=== PATIENT | female | born 1960 | race Caucasian/White ===

== ENCOUNTER 2020-08-10 07:46 | Outpatient (CLI) | payer MEDICARE, SELFPAY ==
--- NOTE | ~2020-08-10 | XR_ITS ---
EXAMINATION: XR knee RT 2V DATE: 08/10/2020 08:37 INDICATION: Right knee pain. TECHNIQUE: 2 views of right knee were obtained. COMPARISON: Right tibia and fibula radiographs 07/12/2019 FINDINGS: Bone alignment is normal. No fracture. There is mild tricompartmental osteoarthritis. No kn ee joint effusion. IMPRESSION: 1. Mild right knee osteoarthritis. Reviewed, dictated and finalized at location A.
== END 2020-08-10 07:47 | disposition home or self-care (01) ==
PROVIDERS: PCP Physician Assistant; Visit Provider Pain Medicine Interventional Pain Medicine
DX: M25.561 Pain in right knee (principal); M54.16 Radiculopathy, lumbar region; M17.11 Unilateral primary osteoarthritis, right knee
CPT/HCPCS: 73560

== ENCOUNTER 2020-11-23 14:45 | Outpatient (CLI) | payer MEDICARE, SELFPAY ==
--- NOTE | ~2020-11-23 | XR_ITS ---
EXAMINATION: XR shoulder LT min 2V DATE: 11/23/2020 15:34 INDICATION: Left shoulder pain. TECHNIQUE: 4 views of left shoulder were obtained. COMPARISON: None. FINDINGS: Bone alignment is normal. No fracture. There is severe osteoarthritis of the acromioclavicu lar joint and moderate osteoarthritis of glenohumeral joint. There is mild calcific tendinitis of the rotator cuff. IMPRESSION: 1. Polyarticular osteoarthritis. 2. Mild calcific tendinitis of the rotator cuff. Reviewed, dictated and finalized at location A. 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
--- NOTE | ~2020-11-23 | XR_ITS ---
XR lumbar spine 2-3V DATE: 11/23/2020 15:34 INDICATION: Back pain, radiculopathy TECHNIQUE: AP, lateral, coned lateral lumbosacral views COMPARISON: 03/10/2007 lumbar spine FINDINGS: There is diffuse osteopenia. Prominent bridging osteophytes of the lumbar spine are noted. Lumbar and lumbosacral interspaces are mildly to moderately narrowed at L1 to and L4-5 primarily. Minimal anterolisthesis at L4-5 due to degenerative change at the apophyseal joints. No fracture or bone destruction is evident. The lumbar pedicles are intact. The sacroiliac joints appear normal. Left common iliac artery stent. There is a prominent amount of fecal material within the colon. IMPRESSION: Osteopenia Degenerative changes Left common iliac artery stent Reviewed, dictated and finalized at location A. OR LEAD DEVELOPER
--- NOTE | ~2020-11-23 | XR_ITS ---
EXAMINATION: XR shoulder RT min 2V DATE: 11/23/2020 15:34 INDICATION: Right shoulder pain. TECHNIQUE: 4 views of right shoulder were obtained. COMPARISON: None. FINDINGS: Bone alignment is normal. No fracture. There is severe osteoarthritis of glenohumeral joint and acromioclavicular joint. There is calcific tendinitis of the rotator cuff. There are old healed right rib fractures. IMPRESSION: 1. Polyarticular osteoarthritis. 2. Calcific tendinitis of the rotator cuff. Reviewed, dictated and finalized at location A. N TEACHER
== END 2020-11-23 14:46 | disposition home or self-care (01) ==
PROVIDERS: PCP Physician Assistant; Visit Provider Pain Medicine Interventional Pain Medicine
DX: M25.519 Pain in unspecified shoulder (principal); M54.16 Radiculopathy, lumbar region; M85.88 Other specified disorders of bone density and structure, other site; Z95.5 Presence of coronary angioplasty implant and graft; M19.012 Primary osteoarthritis, left shoulder; M65.812 Other synovitis and tenosynovitis, left shoulder; M65.811 Other synovitis and tenosynovitis, right shoulder
CPT/HCPCS: 72100; 73030

== ENCOUNTER 2020-12-19 11:39 | Emergency (ER) | payer MEDICARE, SELFPAY ==
--- NOTE | 2020-12-19 11:43 | ED.GENADULT ---
HPI - General Adult General Chief complaint: Wound/Laceration Stated complaint: infected gland Time Seen by Provider: 12/19/20 11:43 Source: patient Mode of arrival: ambulatory Limitations: no limitations History of Present Illness HPI narrative: 60-year-old female patient presents to the [facility] with complaints of left-sided facial swelling for the past 2 weeks. Patient states she did contact her doctor, Dr. Lynch on December 06 that was put on Cipro at that time. Patient states that the swelling was not as bad. Patient states the swelling has gotten worse over the last couple of weeks and did contact his office again after her 10 days of Cipro was up and they extended the Cipro. Patient states that she still spiking fevers as high as 100 and that the swelling is now gotten the size of the range. Patient states it is slightly painful to the touch and hurts when she tries to open her mouth. Denies any dental issues. Denies any pain to the ears. Denies any trouble swallowing or airway issues. Related Data Home Medications Medication Instructions Recorded Confirmed acetaminophen-codeine tablet 12/19/20 12/19/20 clopidogrel 75 mg PO DAILY 12/19/20 12/19/20 diclofenac sodium TOPICAL 12/19/20 gabapentin 12/19/20 oxybutynin chloride 5 mg PO DAILY 12/19/20 12/19/20 tramadol mg 12/19/20 Allergies Allergy/AdvReac Type Severity Reaction Status Date / Time Penicillins Allergy Unknown Verified 07/12/19 13:47 Review of Systems Review of Systems: Narrative: CONSTITUTIONAL: Denies fever, chills, or sweats. EYES: Denies visual changes, redness, or discharge. ENT: Denies rhinorrhea, congestion, sore throat, or otalgia. Positive left-sided facial swelling x2 weeks CARDIOVASCULAR: Denies chest pain, palpitations, or edema. RESPIRATORY: Denies cough or dyspnea. GASTROINTESTINAL: Denies abdominal pain, nausea, vomiting, or diarrhea. GENITOURINARY: Denies dysuria or hematuria. SKIN: Denies rash or itching. MUSCULOSKELETAL: Denies back pain, joint pain, or myalgia. NEUROLOGIC: Denies headache, numbness, or weakness. PSYCHIATRIC: Denies anxiety or depression. [facility] Past Medical History Medical History (Updated 12/19/20 @ 12:23 by CHRISTINA Núñez) Above knee amputation of left lower extremity Stent left leg Depression Diabetes Enlarged thyroid GERD (gastroesophageal reflux disease) History of left below knee amputation Hypercholesterolemia Hypertension IBS (irritable bowel syndrome) Iron deficiency anemia Opioid use Osteomyelitis Peripheral neuropathy Peripheral vascular disease Seasonal allergies Urinary tract infection Surgical History Surgical History (Updated 12/19/20 @ 11:47 by CHRISTINA Núñez) H/O vascular surgery Stent placed in left leg to increase circulation. Left AKA Hx of cholecystectomy Family History Family History (Updated 12/19/20 @ 11:48 by CHRISTINA Núñez) Other Cerebrovascular accident Diabetes mellitus Heart disease Hypertension Social History Social History (Updated 12/19/20 @ 11:47 by CHRISTINA Núñez) Smoking packs per day: 1 Smoking cigarettes per day: 20.0 Years smoked: 13 Smoking pack-years: 13.00 Smoking status: Former smoker Tobacco type: cigarettes Gender identity (if verbalized by the patient): Female Comments At the time of my signature I agree with nursing past medical history, surgical, social, and family history. There is no relevant family history pertinent to the presenting complaint. Exam Narrative: Exam Narrative: GENERAL: Well-appearing, well-nourished, and in no acute distress. HEAD: Normocephalic, atraumatic. EYES: PERRLA and EOMI. ENT: Nares clear, no rhinorrhea or epistaxis. Mucous membranes moist. Bilateral TMs are clear with no erythema or foreign bodies to the canal. Posterior pharynx slight erythema no tonsil enlargement no exudates or lesions present. Patient does have a significant amount of swelling
[2020-12-19 12:05] VITALS: BP 136/65; PULSE 81; RESP 20; TEMP 36.9; O2SAT 96
[2020-12-19 12:08] VITALS: BP 136/65; PULSE 81; RESP 20; TEMP 36.9; O2SAT 96
== END 2020-12-19 12:28 | disposition short-term general hospital (02) ==
PROVIDERS: Emergency Provider Nurse Practitioner Family; PCP Physician Assistant
DX: R22.0 Localized swelling, mass and lump, head (principal); Z87.891 Personal history of nicotine dependence; K21.9 Gastro-esophageal reflux disease without esophagitis; E78.00 Pure hypercholesterolemia, unspecified; I10 Essential (primary) hypertension; M86.9 Osteomyelitis, unspecified; E11.42 Type 2 diabetes mellitus with diabetic polyneuropathy; E11.51 Type 2 diabetes mellitus with diabetic peripheral angiopathy without gangrene; Z89.612 Acquired absence of left leg above knee; Z79.4 Long term (current) use of insulin
CPT/HCPCS: 99213; G0463

== ENCOUNTER 2020-12-19 12:39 | Inpatient (IN) | payer MEDICARE, SELFPAY ==
--- NOTE | ~2020-12-19 | CT_ITS ---
EXAMINATION: CT facial bones w con EXAM DATE: 12/19/2020 14:18 INDICATION: Facial mass, left facial swelling for 2 weeks. TECHNIQUE: Spiral CT of the facial bones was acquired in the axial plane following intravenous inject ion of 75 mL Omnipaque 350. Coronal reformatted images were also reviewed. The dose-length product (DLP) for this examination was 773.43 mGy-cm. The exposure was tailored according to patient size, a nd iterative reconstruction (ASIR) was used as additional dose reduction technique. There is no prio r study for comparison. FINDINGS: In the left parotid superficial lobe posteriorly there is complex multicystic mass measurin g 3.1 x 2.3 cm in greatest axial dimensions. Differential diagnosis includes cystic lymphadenopathy, from infection or malignancy, and primary parotid neoplasm. Given that there is extensive edema withi n the left parotid gland, could be suppurative lymphadenitis, parotiditis. No parotid calcifications. No jugular venous thrombosis. There is left internal jugular chain lymph node measuring 1.3 x 0.8 cm below the mandibular angle. Mi nimal edema within the left parapharyngeal fat. Prevertebral space is normal. There are tonsilliths. Bilateral cataract surgery. IMPRESSION: Left parotid complex cystic mass, and extensive parotid inflammation. Consider suppurati ve lymphadenitis, parotiditis. Malignant lymphadenopathy or primary parotid neoplasm also possible. Reviewed, dictated and finalized at location B. EDUCATOR IMPRESSION: Left parotid complex cystic mass, and extensive parotid inflammatio n. Consider suppurative lymphadenitis, parotiditis. Malignant lymphadenopathy or primary parotid neoplasm also possible.
--- NOTE | ~2020-12-19 | US_ITS ---
EXAMINATION: US venous doppler LE RT DATE: 12/21/2020 13:24 INDICATION: Right lower limb swelling TECHNIQUE: Grayscale ultrasound images without and with compression and Doppler ultrasound images of the right lower extremity veins were obtained. COMPARISON: None. FINDINGS: The visualized portions of right common femoral vein, profunda (deep) femoral vein, femoral vein, pop liteal vein, peroneal trunk, posterior tibial veins, gastrocnemius vein and greater saphenous vein ou tflow are patent. IMPRESSION: 1. No deep venous thrombosis in the right lower limb. Reviewed, dictated and finalized at location A. K OFFBEARER
[2020-12-19 12:44] VITALS: BP 139/90; PULSE 83; RESP 18; TEMP 36.9; O2SAT 96
--- NOTE | 2020-12-19 13:07 | ED.SKABFB ---
HPI - Skin/Abscess/Foreign Bdy General Chief complaint: Skin/Abscess/Foreign Body <Rick Joshua MD - Last Filed: 12/20/20 14:38> Stated complaint: left facial swelling sent from [facility] <Rick Joshua MD - Last Filed: 12/20/20 14:38> Time Seen by Provider: 12/19/20 13:07 <Rick Joshua MD - Last Filed: 12/20/20 14:38> History of Present Illness HPI narrative: 60 yo female w/ h/o DM, htn presents to the ED for facial swelling. She first noted pain in her left ear 2 weeks ago. She was placed on Cipro by her PCP. About 1 week ago she noted swelling to the left side of the face. The swelling has continued to get worse. No dental pain, fever, nausea, vomiting, muffled hearing. <Rick Joshua MD - Last Filed: 12/20/20 14:38> Related Data Home medications: Home Medications Medication Instructions Recorded Confirmed acetaminophen-codeine 300 tablet PO QID 12/19/20 12/19/20 carvedilol 12.5 mg PO BID 12/19/20 12/19/20 clopidogrel 75 mg PO DAILY 12/19/20 12/19/20 diclofenac sodium 1 ea TOPICAL DAILY PRN 12/19/20 12/19/20 docusate sodium 50 mg PO DAILY 12/19/20 12/19/20 gabapentin 600 mg PO TID 12/19/20 12/19/20 insulin lispro [Humalog Pen] 4 unit SUBCUT BIDWMEAL 12/19/20 12/19/20 losartan-hydrochlorothiazide 0.5 tablet PO DAILY 12/19/20 12/19/20 oxybutynin chloride 5 mg PO TID 12/19/20 12/19/20 pioglitazone 15 mg PO DAILY 12/19/20 12/19/20 tizanidine 4 mg PO HS PRN 12/19/20 12/19/20 <Rick Joshua MD - Last Filed: 12/20/20 14:38> Allergies/Adverse reactions: Allergies Allergy/AdvReac Type Severity Reaction Status Date / Time latex Allergy Rash Verified 12/20/20 06:48 <Rick Joshua MD - Last Filed: 12/20/20 14:38> Review of Systems Review of Systems: All systems reviewed & are unremarkable except as noted in HPI and below <Rick Joshua MD - Last Filed: 12/20/20 14:38> Constitutional: Constitutional: Denies chills, Denies fever(s) and Denies weakness <Rick Joshua MD - Last Filed: 12/20/20 14:38> Eyes: Eyes: Reports no additional eye complaints <Rick Joshua MD - Last Filed: 12/20/20 14:38> ENT: Denies dysphagia, Denies dizziness, Denies nasal congestion and Denies sore throat <Rick Joshua MD - Last Filed: 12/20/20 14:38> Cardiovascular: Cardiovascular: Denies chest pain <Rick Joshua MD - Last Filed: 12/20/20 14:38> Respiratory: Respiratory: Denies dyspnea <Rick Joshua MD - Last Filed: 12/20/20 14:38> Gastrointestinal: Gastrointestinal: Denies abdominal pain, Denies nausea and Denies vomiting <Rick Joshua MD - Last Filed: 12/20/20 14:38> Neurologic: Denies dizziness and Denies weakness <Rick Joshua MD - Last Filed: 12/20/20 14:38> [facility] Past Medical History Medical History: Medical History (Updated 12/20/20 @ 03:43 by Amy Montgomery PA-C) Chronic anemia Depression Gastroesophageal reflux disease History of cerebrovascular accident History of DVT of lower extremity Hyperlipidemia Hypertension Irritable bowel syndrome Opioid use Osteomyelitis Peripheral neuropathy Peripheral vascular disease Seasonal allergies Thrombocytopenia Type 2 diabetes mellitus Hemoglobin A1c was 7.0% on 12/19/2020. Urinary tract infection <Rick Joshua MD - Last Filed: 12/20/20 14:38> Surgical History Surgical History: Surgical History (Updated 12/20/20 @ 03:43 by Amy Montgomery PA-C) History of amputation Multiple left toe amputations leading to ultimate BKA. History of cholecystectomy History of left above knee amputation History of left below knee amputation (~06/2013) History of vascular surgery Left lower extremity stent. History of vein stripping <Rick Joshua MD - Last Filed: 12/20/20 14:38> Family History Family History: Family History Mother Cerebrovascular accident
[2020-12-19 14:02] LABS: Basophils Percent Auto 0.3 % (0.2-1.2); Eosinophils Absolute Auto 0.3 K/mm3 (0-0.3); Eosinophils Percent Auto 2.7 % (0-4.4); Hematocrit 35.8 % (37.0-47.0); Hemoglobin 11.9 g/dL (12.0-15.0); Immature Granulocyte Absolute 0.06 K/mm3 (0.00-0.031); Immature Granulocyte Percent A 0.6 % (0-0.5); Lymphocytes Absolute Auto 0.98 K/mm3 (0.9-3.2); Lymphocytes Percent Auto 9.2 % (18.3-44.2); Mean Corpuscular HGB Conc 33.2 g/dl (32-36); Mean Corpuscular Hemoglobin 29.2 pg (26-34); Mean Corpuscular Volume 87.7 fl (80-100); Mean Platelet Volume 9.8 fl (7.4-10.4); Monocytes Absolute Auto 1.2 K/mm3 (0.1-0.6); Monocytes Percent Auto 10.9 % (2.6-8.5); Neutrophils Absolute Auto 8.1 K/mm3 (1.3-6.7); Neutrophils Percent Auto 76.3 % (45.5-73.1); Platelet Count Result 95 k/mm3 (150-375); Red Blood Count 4.08 M/mm3 (4.2-5.4); Red Cell Distribution Width 13.3 % (11.5-14.5); White Blood Count 10.6 K/mm3 (4.5-10.0)
--- NOTE | 2020-12-19 14:09 | PC.NURSE ---
Pt. to CT
[2020-12-19 14:14] LABS: INR 1.1
[2020-12-19 14:15] LABS: Estimated CRCL calculation 115 ml/min; Estimated Glomerular Filt Rate > 60
[2020-12-19 14:15] LABS: Partial Thromboplastin Time 34.9 SECONDS (22.3-36.8)
[2020-12-19 14:16] LABS: Alanine Aminotransferase 17 U/L (4-35); Alkaline Phosphatase 94 U/L (38-126); Anion Gap 5 mmol/L (8-16); Aspartate Amino Transferase 22 U/L (14-36); Bilirubin,Total 0.9 mg/dL (0.2-1.3); Blood Urea Nitrogen 17 mg/dL (7-17); Calcium 9.1 mg/dL (8.4-10.2); Carbon Dioxide 29 mmol/L (22-30); Chloride 101 mmol/L (98-107); Estimated CRCL calculation 98 ml/min; Estimated Glomerular Filt Rate > 60; Glucose 178 mg/dL (65-105); Potassium 3.6 mmol/L (3.4-5.0); Sodium 135 mmol/L (137-145)
[2020-12-19] MEDS: CLINDAMYCIN 600 MG/NS 50 ML 600 MG/50 ML PIGGYBACK 100 MG IVPB (14:58)
[2020-12-19 15:35] VITALS: BP 135/70; PULSE 80; RESP 12; O2SAT 99
[2020-12-19] MEDS: MORPHINE SULFATE (*CRX) 2 MG/ML INJ IV PUSH (15:53)
[2020-12-19 17:17] VITALS: BP 131/70; PULSE 80; RESP 12; O2SAT 99
--- NOTE | 2020-12-19 17:48 | WPDCN ---
Assessment and Plan Assessment and plan (1) Swelling of left side of face: Code(s): R22.0 - Localized swelling, mass and lump, head Status: Acute Assessment and Plan: Delmy has left parotid cyst that may have become infected. The cyst appears to have pre-existed this infectious process. Over the last two weeks, rapid facial swelling that has not responded to PO antibiotics. Imaging showed significant facial cellulitis and parotitis in addition to the multiloculated fluid filled cyst. After consent was obtained, 1% lidocaine with 1:100k epinephrine was infiltrated into the skin overlying the cyst/abscess. Using an 18ga needle, the cyst was entered and contents aspirated - approximately 4mL of brown fluid as well as squamous debris-like material that may have been infected. This decompressed the cyst very nicely. Pt tolerated this without complication. Recommend admission to medicine given diabetes and other medical history for IV antibiotic therapy. It is not entirely clear that the parotid cyst was the underlying source for infection and may have been incidental in the setting of parotitis. However at this time I think we can avoid surgical I&D after the needle aspiration and see how she responds to antibiotic therapy. Will follow as consult and see tomorrow PM. Flip Virk M.D. HPI Data of Consult Date/Time: 12/19/20 17:48 Primary Care Provider: Murphy Lynch, PA Consult Narrative Narrative: Delmy Hull is a 60 year old female diabetic who came in with 2 weeks of progressive left facial swelling and otalgia. Had been on PO cipro for two rounds by her PCP before coming in today. ENT consulted after imaging showed parotitis with a complex multiloculated cyst vs. abscess. Review of Systems Review of Systems: All systems reviewed & are unremarkable except as noted in HPI and below PMFSH Past Medical History Medical History Above knee amputation of left lower extremity Stent left leg Depression Diabetes Enlarged thyroid GERD (gastroesophageal reflux disease) History of left below knee amputation Hypercholesterolemia Hypertension IBS (irritable bowel syndrome) Iron deficiency anemia Opioid use Osteomyelitis Peripheral neuropathy Peripheral vascular disease Seasonal allergies Urinary tract infection Surgical History Surgical History H/O vascular surgery Stent placed in left leg to increase circulation. Left AKA Hx of cholecystectomy Family History Family History Other Cerebrovascular accident Diabetes mellitus Heart disease Hypertension Social History Social History Smoking packs per day: 1 Smoking cigarettes per day: 20.0 Years smoked: 13 Smoking pack-years: 13.00 Smoking status: Former smoker Tobacco type: cigarettes Gender identity (if verbalized by the patient): Female Meds Home Medications and Allergies Home Medications Medication Instructions Recorded Confirmed Type acetaminophen-codeine 300 tablet PO DAILY 12/19/20 12/19/20 History carvedilol 12.5 mg PO BID 12/19/20 12/19/20 History clopidogrel 75 mg PO DAILY 12/19/20 12/19/20 History diclofenac sodium 1 ea TOPICAL DAILY 12/19/20 12/19/20 History gabapentin 600 mg PO TID 12/19/20 12/19/20 History insulin lispro [Humalog Pen] 4 unit SUBCUT BIDWMEAL 12/19/20 12/19/20 History losartan-hydrochlorothiazide 0.5 tablet PO DAILY 12/19/20 12/19/20 History oxybutynin chloride 5 mg PO DAILY 12/19/20 12/19/20 History pioglitazone 15 mg PO DAILY 12/19/20 12/19/20 History tizanidine 4 mg PO PRN PRN 12/19/20 12/19/20 History tramadol 50 mg PO HS 12/19/20 12/19/20 History Allergies Allergy/AdvReac Type Severity Reaction Status Date / Time Penicillins Allergy Unknown Rash Verified
[2020-12-19 18:37] VITALS: BP 139/77; PULSE 70; RESP 14; O2SAT 99
[2020-12-19 19:57] VITALS: BP 144/64; PULSE 88; RESP 19; TEMP 38.4; O2SAT 98
[2020-12-19 20:00] VITALS: BP 151/63; PULSE 89; RESP 16; TEMP 36.7; O2SAT 98; BMI 41.7
--- NOTE | 2020-12-19 20:18 | ADMGEN ---
This patient, Delmy Hull, was admitted to 2 Medical Room 240-01. Patient/family oriented to hospital policies and general routines including ID bracelet, bed and alarms, visiting hours, pain management, procedures, bathroom and other care routines, personal items, smoking policy, room service/diet, and visiting hours. Information on how to activate the Rapid Response Team has been discussed. Patient/Family are encouraged to report perceived risks to care and to ask questions if they do not understand what they are told or what they should do.
[2020-12-19 21:20] LABS: Glucose Point of Care 259 (65-105)
--- NOTE | 2020-12-19 22:30 | PM.IMHP ---
H&P: HPI History of Present Illness Date/Time: 12/19/20 22:30 Chief Complaint: Left-sided facial swelling. Narrative: This is a 62-year-old female with type 2 diabetes mellitus, hypertension, and peripheral vascular disease who presented to the emergency department earlier today from urgent care for evaluation of left-sided facial swelling. A couple of weeks ago she thought she was developing a sinus infection after she began having left ear discomfort with fever and some congestion. She was prescribed ciprofloxacin however that did not help her ear pain and in fact she began developing swelling in the preauricular region while taking that antibiotic. Unfortunately the area has continued to swell with pretty significant pain and she was seen at a local urgent care and then directed to the emergency department for evaluation. CT demonstrated a parotid cyst with inflammation of the parotid, and Dr. Virk (ENT) did drain the cyst at bedside and he recommends admission for IV antibiotics for at least 48 hours. At the time my evaluation she feels a bit better after this cyst has been drained. She has no specific complaints at this time and specifically denies headache, rhinorrhea, odynophagia, cough, shortness of breath, nausea, vomiting, diarrhea, and dysuria. No known history of MRSA. Review of Systems Review of Systems: Narrative: Twelve systems were reviewed with pertinent positives and negatives as per HPI. No sick contacts or exposure to COVID-19. Over the last week or so her glucose has been trending upwards, ranging between 202 30 which is unusual for her. No blurry vision, polydipsia, or polyuria. Patient has had several left-sided toe amputations followed by a BKA and subsequent left AKA due to osteomyelitis. She never had success with a prostatic. Except as documented, all other systems were reviewed and are negative. [facility] Past Medical History Medical History (Updated 12/20/20 @ 03:43 by Amy Montgomery PA-C) Chronic anemia Depression Gastroesophageal reflux disease History of cerebrovascular accident History of DVT of lower extremity Hyperlipidemia Hypertension Irritable bowel syndrome Opioid use Osteomyelitis Peripheral neuropathy Peripheral vascular disease Seasonal allergies Thrombocytopenia Type 2 diabetes mellitus Hemoglobin A1c was 7.0% on 12/19/2020. 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 History of cholecystectomy History of left above knee amputation History of left below knee amputation (~06/2013) History of vascular surgery Left lower extremity stent. History of vein stripping Family History Family History Mother Cerebrovascular accident Diabetes mellitus Hypertension Father Diabetes mellitus Heart disease Hypertension Social History Social History (Updated 12/20/20 @ 03:44 by Amy Montgomery PA-C) Social History: Surrogate decision maker: Rina Parrish, daughter. Code status: Full code. Smoking packs per day: 1 Smoking cigarettes per day: 20.0 Years smoked: 30 Smoking pack-years: 30.00 Smoking status: Former smoker Tobacco type: cigarettes Alcohol intake: never Substance use: never Additional living arrangements comments: The patient lives in [place] with her . Additional occupation/education comments: Disabled. Gender identity (if verbalized by the patient): Female Spiritual care concerns: No Meds Home Medications and Allergies Home Medications Medication Instructions Recorded Confirmed Type acetaminophen-codeine 300 tablet PO QID 12/19/20 12/19/20 History carvedilol 12.5 mg PO BID 12/19/20 12/19/20 History clopidogrel 75 mg PO DAILY 12/19/20 12/19/20 History diclofenac sodium 1 ea TOPICAL DAILY PRN 12/19/2012/19
[2020-12-19] MEDS: SODIUM CHLORIDE 0.9% IV 1,000 ML 125 ML IV CONT (22:49)
[2020-12-20] VITALS (10 sets, daily range): BP systolic 119–139; BP diastolic 53–83; PULSE 77–94; RESP 14–20; TEMP 36.1–36.9; O2SAT 94–99
[2020-12-20] MEDS: HYDROcodone/acetaminophen (*CRX) 5-325 MG TABLET 1 TAB PO ×2 (00:23→20:36)
[2020-12-20 06:04] LABS: Hematocrit 33.5 % (37.0-47.0); Hemoglobin 10.9 g/dL (12.0-15.0); Mean Corpuscular HGB Conc 32.5 g/dl (32-36); Mean Corpuscular Hemoglobin 28.3 pg (26-34); Mean Platelet Volume 9.5 fl (7.4-10.4); Platelet Count Result 105 k/mm3 (150-375); Red Blood Count 3.85 M/mm3 (4.2-5.4); Red Cell Distribution Width 13.2 % (11.5-14.5); White Blood Count 8.6 K/mm3 (4.5-10.0)
[2020-12-20 06:25] LABS: Anion Gap 4 mmol/L (8-16); Blood Urea Nitrogen 17 mg/dL (7-17); Calcium 8.3 mg/dL (8.4-10.2); Carbon Dioxide 28 mmol/L (22-30); Chloride 103 mmol/L (98-107); Estimated CRCL calculation 92 ml/min; Estimated Glomerular Filt Rate > 60; Glucose 170 mg/dL (65-105); Magnesium 1.5 mg/dL (1.6-2.3); Potassium 3.7 mmol/L (3.4-5.0); Sodium 135 mmol/L (137-145)
[2020-12-20 07:45] LABS: Glucose Point of Care 179 (65-105)
[2020-12-20] MEDS: MAGNESIUM SULF 1 GM/D5W 100 ML 1 GM/100 ML BAG IVPB (08:42)
[2020-12-20] MEDS: OXYBUTYNIN CHLORIDE 5 MG TABLET PO ×3 (09:16→16:44)
[2020-12-20] MEDS: GABAPENTIN 300 MG CAPSULE 600 MG PO ×3 (09:17→16:44)
[2020-12-20] MEDS: hydroCHLOROthiazide 6.25 MG TABLET PO (09:17)
[2020-12-20] MEDS: carvediloL 12.5 MG TABLET PO ×2 (09:18→20:37)
[2020-12-20] MEDS: LOSARTAN POTASSIUM 25 MG TABLET PO (09:18)
[2020-12-20] MEDS: DOCUSATE SODIUM LIQ 100 MG/10 ML UDC 50 MG PO (09:19)
[2020-12-20 11:24] LABS: Glucose Point of Care 282 (65-105)
[2020-12-20] MEDS: INSULIN ASPART (*BKC) 100 UNITS/ML SUB-Q ×2 (11:32→16:49)
--- NOTE | 2020-12-20 13:24 | PC.NURSE ---
On 12/20/20, the student, [ Arcelia Britt], provided care and completed [facility] documentation on this patient. I have reviewed the student's documentation and agree with the findings.
--- NOTE | 2020-12-20 13:26 | PC.NURSE ---
On 12/20/20, the student, [Ishaan Esposito ], provided care and completed [facility] documentation on this patient. I have reviewed the student's documentation and agree with the findings.
--- NOTE | 2020-12-20 13:41 | PM.IMPN ---
Progress Note: A&P Assessment and Plan (1) Parotitis: Code(s): K11.20 - Sialoadenitis, unspecified Status: Acute Assessment and Plan: The patient presented with progressive left-sided facial swelling x2 weeks. She was on 15 days of ciprofloxacin outpatient without improvement. CT face demonstrated left parotid complex cystic mass and extensive parotid inflammation. ENT (Dr. Virk) was consulted from the emergency department and performed incision and drainage. 4cc of brown fluid was aspirated and sent for culture. WBC has normalized. T max 101.1F yesterday evening and she has been afebrile today. Dr. Virk, ENT, is following. Input is greatly appreciated. Await final culture results. Preliminary culture shows white blood cells and no organisms at this time. Continue IV vancomycin and primaxin Encourage supportive care with stimulation of salivary flow with warm compress, sialagogues including lemon drop, IV fluids, and salivary gland massage (2) Cyst of left parotid gland: Code(s): K11.6 - Mucocele of salivary gland Status: Acute Assessment and Plan: As above. Uclear if this was the source of infection or incidental in the setting of parotitis. Management per Dr. Virk. (3) Thrombocytopenia: Code(s): D69.6 - Thrombocytopenia, unspecified Status: Chronic Assessment and Plan: Chronic. She has no evidence of bleeding. Continue to monitor for any bleeding. Monitor CBC daily. (4) Hypertension: Code(s): I10 - Essential (primary) hypertension Status: Chronic Assessment and Plan: Blood pressures are well-controlled. Most recent BP is 138/57. Continue carvedilol and losartan-hydrochlorothiazide Continue to monitor and adjust treatment as necessary (5) Type 2 diabetes mellitus: Code(s): E11.9 - Type 2 diabetes mellitus without complications Status: Chronic Assessment and Plan: Hemoglobin A1c is 7.0 on 12/19. Blood sugars are a bit elevated above target. Hold pioglitazone while inpatient Continue sliding scale insulin, hypoglycemia protocol, and ACHS glucose monitoring Continue 4 units BID with meals Add lantus 5 units qHS (6) Chronic anemia: Code(s): D64.9 - Anemia, unspecified Status: Chronic Assessment and Plan: Hb was a bit decreased from baseline on labs at admission. She does have a hx of chronic anemia and this is likely secondary to anemia of chronic disease. Check iron studies, vitamin B12, and folate Continue to monitor with CBC daily and transfuse as needed to maintain Hb >7 Subjective Date/time seen: 12/20/20 13:41 Mrs. Hull is a 60 y.o. female with PMH significant for hypertension, hyperlipidemia, type 2 diabetes mellitus, and peripheral vascular disease s/p left AKA who is seen in follow-up for left-sided parotitis. She is doing better today. She still complains of left sided swelling and and pain but this is a bit better today. She notes significant improvement in the pain/pressure following drainage by Dr. Virk. She is not having any fever or chills. Her appetite is good and she has no nausea, vomiting, or abdominal pain. She reports no ear pain or pressure and no dental pain. She has not tried lemon drops and is reluctant to but I did encourage this. She notes that she does feel a bit tired. Bowels are regular. She has no voiding concerns. Review of Systems Review of Systems: All systems reviewed & are unremarkable except as noted in HPI and below Exam Narrative: Exam Narrative: General: Very pleasant, well-developed, and morbidly obese 60 y.o. female who is sitting in the chair at the bedside watching TV in no acute distress. Head: Normocephalic and atraumatic. Face: Left parotid swelling and tenderness with inflammation and injection of overlying skin. Eyes: Sclera anicteric. Conjunctivae without injection or exudate. EOMI. Ears: Bilat
[2020-12-20 16:41] LABS: Glucose Point of Care 147 (65-105)
[2020-12-20] MEDS: SODIUM CHLORIDE 0.9% IV 1,000 ML 75 ML IV CONT (16:44)
--- NOTE | 2020-12-20 17:29 | WPDPN ---
Progress Note: A&P Assessment and Plan (1) Parotitis: Code(s): K11.20 - Sialoadenitis, unspecified Status: Acute Assessment and Plan: Delmy had a parotid cyst drained with me in the ED last night. No growth of fluid so far. Significant parotitis, no drainable abscess. Continuing to improve on IV antibiotics. Recommend another 24h of inpatient care and antibiotic management. If continuing to respond clinically, she may transition to PO antibiotics and discharge Thursday or Thursday per hospitalist team. Also agree with sialogogues, warm compresses and increased hydration. Please call if clinically worsens. Plan on outpatient follow up with me to discuss parotid cyst. Review of Systems Review of Systems: All systems reviewed & are unremarkable except as noted in HPI and below Exam Narrative: Exam Narrative: Decompressed left parotid cyst with less fullness and tension. Still has significant parotid inflammation consistent with parotitis. Objective Data Vital Signs Vital Signs: Vital Signs - 24 hr 12/19/20 18:37 12/19/20 19:57 12/19/20 20:00 Temperature 38.4 C H 36.7 C Pulse Rate 70 88 89 Respiratory Rate 14 19 16 Blood Pressure 139/77 144/64 H 151/63 H Pulse Oximetry 99 98 98 12/20/20 00:00 12/20/20 04:00 12/20/20 08:16 Temperature 36.2 C L 36.9 C 36.1 C L Pulse Rate 88 88 85 Respiratory Rate 16 16 14 Blood Pressure 133/54 L 123/53 L 138/57 L Pulse Oximetry 95 97 98 12/20/20 08:40 12/20/20 08:46 12/20/20 09:18 Temperature Pulse Rate 85 Respiratory Rate Blood Pressure Pulse Oximetry 94 94 12/20/20 12:57 Temperature 36.9 C Pulse Rate 77 Respiratory Rate 16 Blood Pressure 138/57 L Pulse Oximetry 99 Intake/Output Intake/Output: Intake & Output 12/17/20 12/18/20 12/19/20 12/20/20 23:59 23:59 23:59 23:59 Intake Total 550 3160 Output Total 500 Balance 550 2660 Meds/Results Medications: Active Medications Generic Name Dose Route Start Last Admin Trade Name Freq PRN Reason Stop Dose Admin Hydrocodone Bitart/Acetaminophen 1 tab 12/19/20 23:16 12/20/20 00:23 Hydrocodone/Acetaminophen (*Crx) 5-325 Mg Tablet PO 1 tab Q6H PRN Administration Pain Rated 4-6 Carvedilol 12.5 mg 12/20/20 09:00 12/20/20 09:18 Carvedilol 12.5 Mg Tablet PO 12.5 mg Q12HR ARMIN Administration Dextrose 12.5 gm 12/19/20 21:43 Dextrose 50% 25 Gm/50 Ml Syringe IV PUSH PRN PRN Hypoglycemia Protocol Docusate Sodium 50 mg 12/20/20 09:00 12/20/20 09:19 Docusate Sodium Liq 100 Mg/10 Ml Udc PO 01/19/21 09:01 50 mg DAILY ARMIN Administration Gabapentin 600 mg 12/20/20 09:00 12/20/20 16:44 Gabapentin 300 Mg Capsule PO 600 mg TID ARMIN Administration Glucagon 1 mg 12/19/20 21:43 Glucagon For Inj 1 Mg Vial IM PRN PRN Hypoglycemia Protocol Glucose 15 gm 12/19/20 21:43 Glucose Oral Gel 15 Gm Of Glucse In 37.5 Gm Tube PO PRN PRN Hypoglycemia Protocol Hydrochlorothiazide 6.25 mg 12/20/20 09:00 12/20/20 09:17 Hydrochlorothiazide 6.25 Mg Tablet PO 6.25 mg DAILY ARMIN Administration Vancomycin HCl 1,500 mg in 500 mls @ 333.333 mls/hr 12/20/20 07:00 12/20/20 14:25 Vancomycin 1,500 Mg/D5w 500 Ml IVPB Infused Q12H ARMIN Infusion Dextrose 1,000 mls @ 100 mls/hr 12/19/20 21:43 Dextrose 5% 1,000 Ml IVPB PRN PRN Hypoglycemia Protocol Imipenem/Cilastatin Sodium 500 mg in 100 mls @ 300 mls/hr 12/20/20 00:00 12/20/20 17:20 Primaxin 500 Mg/D5w 100 Ml IVPB 300 mls/hr Q6H ARMIN Administration Sodium Chloride 1,000 mls @ 75 mls/hr 12/20/20 15:35 12/20/20 16:44 Normal Saline Iv IV CONT 75 mls/hr .[id number] ARMIN Administration Insulin Aspart 2 - 5 units 12/20/20 08:00 12/20/20 16:43 Insulin Aspart (*Bkc) 100 Units/Ml SUB-Q Not Given TIDWM ARMIN Protocol Insulin Aspart 4 units 12/20/20 17:00 12/20/20 16:49 Insulin Aspart (*B
[2020-12-20] MEDS: INSULIN GLARGINE (*BKC) 100 UNITS/ML SUB-Q (20:38)
[2020-12-20 22:41] LABS: Glucose Point of Care 180 (65-105)
[2020-12-21] VITALS (9 sets, daily range): BP systolic 118–131; BP diastolic 54–70; PULSE 78–89; RESP 14–20; TEMP 36.6–37; O2SAT 96–98
[2020-12-21] MEDS: SODIUM CHLORIDE 0.9% IV 1,000 ML 75 ML IV CONT (06:03)
[2020-12-21 06:10] LABS: Basophils Absolute Auto 0.1 K/mm3 (0.0-0.1); Basophils Percent Auto 0.8 % (0.2-1.2); Eosinophils Absolute Auto 0.5 K/mm3 (0-0.3); Hematocrit 32.9 % (37.0-47.0); Hemoglobin 10.7 g/dL (12.0-15.0); Immature Granulocyte Absolute 0.08 K/mm3 (0.00-0.031); Immature Granulocyte Percent A 1.2 % (0-0.5); Lymphocytes Absolute Auto 1.13 K/mm3 (0.9-3.2); Lymphocytes Percent Auto 17.1 % (18.3-44.2); Mean Corpuscular HGB Conc 32.5 g/dl (32-36); Mean Corpuscular Hemoglobin 28.8 pg (26-34); Mean Corpuscular Volume 88.4 fl (80-100); Mean Platelet Volume 9.5 fl (7.4-10.4); Monocytes Absolute Auto 0.9 K/mm3 (0.1-0.6); Monocytes Percent Auto 12.9 % (2.6-8.5); Platelet Count Result 102 k/mm3 (150-375); Red Blood Count 3.72 M/mm3 (4.2-5.4); Red Cell Distribution Width 13.2 % (11.5-14.5); White Blood Count 6.6 K/mm3 (4.5-10.0)
[2020-12-21 06:33] LABS: Anion Gap 5 mmol/L (8-16); Blood Urea Nitrogen 21 mg/dL (7-17); CRP 8.9 mg/dL (<1.0); Calcium 8.2 mg/dL (8.4-10.2); Carbon Dioxide 28 mmol/L (22-30); Chloride 99 mmol/L (98-107); Estimated CRCL calculation 92 ml/min; Estimated Glomerular Filt Rate > 60; Glucose 184 mg/dL (65-105); Magnesium 1.7 mg/dL (1.6-2.3); Potassium 3.7 mmol/L (3.4-5.0); Sodium 132 mmol/L (137-145)
[2020-12-21 07:41] LABS: Glucose Point of Care 197 (65-105)
[2020-12-21] MEDS: carvediloL 12.5 MG TABLET PO ×2 (08:03→21:06)
[2020-12-21] MEDS: DOCUSATE SODIUM LIQ 100 MG/10 ML UDC 50 MG PO (08:03)
[2020-12-21] MEDS: GABAPENTIN 300 MG CAPSULE 600 MG PO ×3 (08:04→17:01)
[2020-12-21] MEDS: hydroCHLOROthiazide 6.25 MG TABLET PO (08:04)
[2020-12-21] MEDS: OXYBUTYNIN CHLORIDE 5 MG TABLET PO ×3 (08:04→17:01)
[2020-12-21] MEDS: LOSARTAN POTASSIUM 25 MG TABLET PO (08:04)
[2020-12-21] MEDS: INSULIN ASPART (*BKC) 100 UNITS/ML SUB-Q ×4 (08:07→17:01)
--- NOTE | 2020-12-21 10:46 | PM.IMPN ---
Progress Note: A&P Assessment and Plan (1) Parotitis: Code(s): K11.20 - Sialoadenitis, unspecified Status: Acute Assessment and Plan: The patient presented with progressive left-sided facial swelling x2 weeks. She was on 15 days of ciprofloxacin outpatient without improvement. CT face demonstrated left parotid complex cystic mass and extensive parotid inflammation. ENT (Dr. Virk) was consulted from the emergency department and performed incision and drainage. 4cc of brown fluid was aspirated and sent for culture. WBC has normalized. T max 101.1F yesterday evening and she has been afebrile today. Dr. Virk, ENT, is following. Input is greatly appreciated. She will need to follow-up with Dr. Virk outpatient in 1 week for follow-up. Await final culture results. Preliminary culture from I&D shows white blood cells and growth of skin francis. Blood cultures demonstrate NGTD. Continue IV vancomycin and primaxin (initiated 12/20/20) Encourage supportive care with stimulation of salivary flow with warm compress, sialagogues including lemon drop, IV fluids, and salivary gland massage Anticipate transition to oral antibiotics and possible discharge tomorrow (2) Cyst of left parotid gland: Code(s): K11.6 - Mucocele of salivary gland Status: Acute Assessment and Plan: As above. Uclear if this was the source of infection or incidental in the setting of parotitis. Management per Dr. Virk. She will follow-up with Dr. Virk outpatient to discuss the cyst. (3) Thrombocytopenia: Code(s): D69.6 - Thrombocytopenia, unspecified Status: Chronic Assessment and Plan: Chronic. She has no evidence of bleeding. Continue to monitor for any bleeding. Monitor CBC daily. (4) Hypertension: Code(s): I10 - Essential (primary) hypertension Status: Chronic Assessment and Plan: Blood pressures are well-controlled. Most recent BP is 131/54. Continue carvedilol and losartan-hydrochlorothiazide Continue to monitor and adjust treatment as necessary (5) Type 2 diabetes mellitus: Code(s): E11.9 - Type 2 diabetes mellitus without complications Status: Chronic Assessment and Plan: Hemoglobin A1c is 7.0 on 12/19. Blood sugars were a bit elevated above target but have improved. She is being switched to consistent carb diet as well. Hold pioglitazone while inpatient Continue sliding scale insulin, hypoglycemia protocol, and ACHS glucose monitoring Continue 4 units BID with meals Continue lantus 5 units qHS (6) Chronic anemia: Code(s): D64.9 - Anemia, unspecified Status: Chronic Assessment and Plan: Hb was a bit decreased from baseline on labs at admission. She does have a hx of chronic anemia and this is likely secondary to anemia of chronic disease. Check iron studies, vitamin B12, and folate Continue to monitor with CBC daily and transfuse as needed to maintain Hb >7 (7) Right leg swelling: Code(s): M79.89 - Other specified soft tissue disorders Status: Acute Assessment and Plan: Order venous doppler US to r/o DVT. Likely dependent due to venous insufficiency as she normally wears a compression stocking at home. Add PRUDENCIO hose and encourage leg elevation. Subjective Date/time seen: 12/21/20 10:46 Mrs. Hull is a 60 y.o. female with PMH significant for hypertension, hyperlipidemia, type 2 diabetes mellitus, and peripheral vascular disease s/p left AKA who is seen in follow-up for left-sided parotitis. She is doing well overall. She still has left sided facial pain, pressure/fullness, and swelling but does think it is a bit better. She has no ear pain or tooth pain. She is eating okay but does not like heart healthy diet and will be switched to consistent carb diet. She generally wears a compression stocking at home on her RLE and feels her RLE is a bit swollen but she has no calf t
[2020-12-21 11:37] LABS: Glucose Point of Care 218 (65-105)
--- NOTE | 2020-12-21 15:56 | PC.NURSE ---
On 12/21/20, the student, [ Boris Roche], provided care and [facility]. I have reviewed the student's documentation and agree with the findings.
[2020-12-21 16:41] LABS: Glucose Point of Care 182 (65-105)
[2020-12-21] MEDS: HYDROcodone/acetaminophen (*CRX) 5-325 MG TABLET 1 TAB PO (21:05)
[2020-12-21] MEDS: INSULIN GLARGINE (*BKC) 100 UNITS/ML SUB-Q (21:06)
[2020-12-21 21:16] LABS: Glucose Point of Care 256 (65-105)
[2020-12-22] VITALS: BP 105/48; PULSE 79; RESP 20; TEMP 36.6; O2SAT 98
[2020-12-22 04:00] VITALS: BP 108/47; PULSE 85; RESP 20; TEMP 36.4; O2SAT 98
[2020-12-22 05:29] LABS: Basophils Percent Auto 0.7 % (0.2-1.2); Eosinophils Absolute Auto 0.4 K/mm3 (0-0.3); Eosinophils Percent Auto 6.8 % (0-4.4); Hemoglobin 11.5 g/dL (12.0-15.0); Immature Granulocyte Percent A 1.7 % (0-0.5); Lymphocytes Absolute Auto 1.09 K/mm3 (0.9-3.2); Mean Corpuscular HGB Conc 32.9 g/dl (32-36); Mean Corpuscular Hemoglobin 29.2 pg (26-34); Mean Corpuscular Volume 88.8 fl (80-100); Mean Platelet Volume 9.4 fl (7.4-10.4); Monocytes Absolute Auto 0.6 K/mm3 (0.1-0.6); Monocytes Percent Auto 10.1 % (2.6-8.5); Neutrophils Absolute Auto 3.6 K/mm3 (1.3-6.7); Neutrophils Percent Auto 61.7 % (45.5-73.1); Platelet Count Result 110 k/mm3 (150-375); Red Blood Count 3.94 M/mm3 (4.2-5.4); Red Cell Distribution Width 13.1 % (11.5-14.5); White Blood Count 5.8 K/mm3 (4.5-10.0)
[2020-12-22 05:43] LABS: Anion Gap 5 mmol/L (8-16); Blood Urea Nitrogen 19 mg/dL (7-17); CRP 6.4 mg/dL (<1.0); Calcium 8.7 mg/dL (8.4-10.2); Carbon Dioxide 30 mmol/L (22-30); Chloride 101 mmol/L (98-107); Estimated CRCL calculation 92 ml/min; Estimated Glomerular Filt Rate > 60; Glucose 168 mg/dL (65-105); Potassium 3.6 mmol/L (3.4-5.0); Sodium 136 mmol/L (137-145)
[2020-12-22 05:48] LABS: Transferrin 255 mg/dL (206-381)
[2020-12-22 05:58] LABS: Iron 46 ug/dL (37-170)
[2020-12-22 06:08] LABS: Percent Iron Saturation 13 % (20-50)
[2020-12-22 06:47] LABS: Folic Acid 9.9 ng/mL (2.76->20)
[2020-12-22 08:00] VITALS: BP 116/52; PULSE 72; RESP 18; TEMP 36.7; O2SAT 97
[2020-12-22] MEDS: INSULIN ASPART (*BKC) 100 UNITS/ML SUB-Q ×4 (08:53→12:16)
[2020-12-22 08:57] VITALS: PULSE 85
[2020-12-22] MEDS: OXYBUTYNIN CHLORIDE 5 MG TABLET PO ×2 (08:57→13:25)
[2020-12-22] MEDS: GABAPENTIN 300 MG CAPSULE 600 MG PO ×2 (08:57→13:25)
[2020-12-22] MEDS: carvediloL 12.5 MG TABLET PO (08:57)
[2020-12-22] MEDS: hydroCHLOROthiazide 6.25 MG TABLET PO (08:57)
[2020-12-22] MEDS: LOSARTAN POTASSIUM 25 MG TABLET PO (08:57)
--- NOTE | 2020-12-22 09:15 | PM.DS ---
DS: Admitting Diagnosis Admitting Diagnosis Admitting Diagnosis: Parotitis DS: Discharge Diagnosis Discharge Diagnosis (1) Parotitis: Code(s): K11.20 - Sialoadenitis, unspecified Status: Acute Assessment and Plan: Discharge Summary (Date of service 12/22/20): Mrs. Hull is a 60 y.o. female with PMH significant for hypertension, hyperlipidemia, type 2 diabetes mellitus, and peripheral vascular disease s/p left AKA who presented to the emergency department with progressive left-sided facial swelling x2 weeks. She reported that she initially thought she had developed a sinus infection and noted associated left ear discomfort with fever and congestion. She was on 15 days of ciprofloxacin outpatient without improvement. Vitals were stable on arrival to the emergency department and airway was protected. WBC was elevated at 10,600 with neutrophil predominance. She has chronic anemia and thrombocytopenia and labs were consistent with baseline. CT face demonstrated left parotid complex cystic mass and extensive parotid inflammation. ENT (Dr. Virk) was consulted from the emergency department and performed incision and drainage. 4cc of brown fluid was aspirated and sent for culture. Blood cultures were obtained. She was treated with IV vancomycin and primaxin and admitted to the hospitalist service with ENT consultation. T max was 101.1F the evening of 12/19 and abated. The cyst aspirate culture demonstrated WBCs and growth of normal skin francis with no other organisms isolated. Her parotid swelling improved significantly and she was discharge on 12/22/20 with broad-spectrum antibiotics of clindamycin and ciprofloxacin to complete a 10 day course. I discussed the risks of antibiotic associated diarrhea/C. diff and advised she monitor very closely for any diarrhea. She was advised to call her PCP immediately should she notice any adverse reaction to the antibiotics including diarrhea. She was encouraged to continue supportive care with stimulation of salivary flow with warm compress, sialagogues including lemon drop, and salivary gland massage. She no longer required inpatient care for IV antibiotics given significant clinical improvement and she was discharged in hemodynamically stable condition on the afternoon of 12/22/20. She will see Dr. Virk (ENT) in 1 week outpatient for a follow-up visit and also needs to see her PCP within 1 week as well. Preliminary blood cultures demonstrated no growth to date. (2) Cyst of left parotid gland: Code(s): K11.6 - Mucocele of salivary gland Status: Acute Assessment and Plan: As above. Uclear if this was the source of infection or incidental in the setting of parotitis. She will follow-up with Dr. Virk outpatient in 1 week to discuss cyst removal. (3) Thrombocytopenia: Code(s): D69.6 - Thrombocytopenia, unspecified Status: Chronic Assessment and Plan: Chronic. She had no evidence of bleeding. Continue outpatient follow-up. (4) Hypertension: Code(s): I10 - Essential (primary) hypertension Status: Chronic Assessment and Plan: Blood pressures were monitored and well-controlled. Carvedilol and losartan-hydrochlorothiazide were continued at discharge. (5) Type 2 diabetes mellitus: Code(s): E11.9 - Type 2 diabetes mellitus without complications Status: Chronic Assessment and Plan: Hemoglobin A1c is 7.0 on 12/19/20. Blood sugars were a bit elevated above target initially but improved. Home regimen was resumed at discharge. Consistent carb diet was also encouraged at discharge as well. (6) Chronic anemia: Code(s): D64.9 - Anemia, unspecified Status: Chronic Assessment and Plan: Hb was a bit decreased from baseline on labs at admission. She does have a hx of chronic anemia and this is likely secondary to anemia of chronic disease. Vitamin B12 and folate are sufficient. Iron is sufficient.
[2020-12-22] MEDS: CLOPIDOGREL BISULFATE 75 MG TABLET PO (10:34)
[2020-12-22 10:46] LABS: Glucose Point of Care 207 (65-105)
[2020-12-22 12:00] VITALS: BP 125/70; PULSE 73; RESP 16; TEMP 36.9; O2SAT 97
[2020-12-22 12:00] LABS: Glucose Point of Care 249 (65-105)
--- NOTE | 2020-12-26 11:30 | PC.NURSE ---
Blood cx are negative
== END 2020-12-22 14:50 | disposition home or self-care (01) | DRG 156 ==
LOC: ANHED 18:10 → ANH2MED 22:27
PROVIDERS: Emergency Medicine; Physician Assistant; Admitting Provider Family Medicine; Emergency Provider Emergency Medicine; PCP Physician Assistant; Visit Provider Physician Assistant
DX: K11.20 Sialoadenitis, unspecified (principal); K11.6 Mucocele of salivary gland; D69.6 Thrombocytopenia, unspecified; E11.42 Type 2 diabetes mellitus with diabetic polyneuropathy; E11.51 Type 2 diabetes mellitus with diabetic peripheral angiopathy without gangrene; D64.9 Anemia, unspecified; M79.89 Other specified soft tissue disorders; I10 Essential (primary) hypertension; E78.5 Hyperlipidemia, unspecified; Z79.4 Long term (current) use of insulin; Z86.73 Personal history of transient ischemic attack (TIA), and cerebral infarction without residual deficits; Z87.891 Personal history of nicotine dependence; Z89.612 Acquired absence of left leg above knee
CPT/HCPCS: 36415; 70487; 80048; 80053; 80202; 82607; 82728; 82746; 82948; 83036; 83540; 83550; 83735; 84466; 85025; 85027; 85610; 85730; 86140; 87040; 87070; 87205; 93971; 96365; 96375; 99213; 99285; A9270; G0463; J0743; J1815; J2270; J3370; J3475; J7030; Q9967

== ENCOUNTER 2021-02-09 09:03 | Outpatient (CLI) | payer MEDICARE, SELFPAY ==
--- NOTE | ~2021-02-09 | DEXA_ITS ---
Bone Density Report Name: Delmy Hull Age: 60 Sex: Female Ethnicity: White Date of : 1960 Indication: osteopenia; height loss; Referring Provider: Syed, Murphy Onofre Study: Bone densitometry was performed. Exam Date: February 09, 2021 Accession number: [id number] Bone Density: Region BMD T-score Z-score Classification AP Spine (L1-L4) 1.118 0.6 2.2 Normal Femoral Neck (Right) 0.546 -2.7 -1.4 Osteoporosis Total Hip (Right) 0.777 -1.4 -0.3 Osteopenia World Health Organization criteria for BMD impression classify patients as: Normal (T-score at or above -1.0), Osteopenia (T-score between -1.0 and -2.5), or Osteoporosis (T-score at or below -2.5). 10-year Fracture Risk: FRAX not reported because: Some T-score for Spine Total or Hip Total or Femoral Neck at or below -2.5 Previous Exams: Region Exam Age BMD T-score BMD Change BMD Change Date g/cm2 vs Baseline vs Previous AP Spine(L1-L4) 02/09/2021 60 1.118 0.6 0.079(7.6%)# 0.079(7.6%)# 03/06/2010 49 1.040 -0.1 Total Hip(Right) 02/09/2021 60 0.777 -1.4 -0.031(-3.9%)# -0.031(-3.9%)# 03/06/2010 49 0.808 -1.1 *Denotes significance at 95% confidence level, LSC for AP Spine = 0.022 g/cm2, LSC for Total Hip = 0.027 g/cm2 Clinical Information Provided by Patient: Patient maximum height was 65.5 Menopause Age: 57 No regular weight bearing exercise Drinks caffeinated beverages Onset of menses at age 16 Number of children 1 Impression: The patient has osteoporosis, based on the Right Femoral Neck T-score. No significant bone loss was observed. Discussion: INCREASED RISK OF FRACTURE. BONE DENSITY IS UNDESIRABLY LOW AT ONE OR MORE SKELETAL SITES, CONSISTENT WITH POSTMENOPAUSAL OSTEOPOROSIS. This patient's lowest T-score meets the World Health Organization's (WHO) criteria for osteoporosis at one or more sites (T-score -2.5 or below). In untreated patients, the risk of osteoporotic fracture increases approximately two-fold for each 1.0 SD decrease in T-score. Low bone density is not the only risk factor for fracture; also consider factors such as patient's age, frailty or poor health, risk of falling, risk of injury, previous osteoporotic fracture, family history of osteoporosis, cigarette smoking, low body weight, etc. Not everyone with low bone mineral density has osteoporosis; osteomalacia and other metabolic bone disorders should also be considered. Patients who have osteoporosis should be evaluated for specific diseases and conditions (secondary causes) that
== END 2021-02-09 09:04 | disposition home or self-care (01) ==
PROVIDERS: PCP Physician Assistant; Visit Provider Physician Assistant
DX: M85.80 Other specified disorders of bone density and structure, unspecified site (principal); M81.0 Age-related osteoporosis without current pathological fracture
CPT/HCPCS: 77080

== ENCOUNTER 2021-04-01 08:36 | Outpatient (CLI) | payer MEDICARE, SELFPAY ==
--- NOTE | ~2021-04-01 | MM_ITS ---
EXAMINATION: MM screening anika BI w isaac HISTORY: Screening mammogram TECHNIQUE: Craniocaudal and mediolateral oblique 3-D tomosynthesis images were obtained and synthetic 2-D images were generated. CAD analysis was submitted and interpreted. COMPARISON: 03/06/2018, 04/13/2016 bilateral digital screening mammogram examinations BREAST PARENCHYMAL COMPOSITION: The breasts are almost entirely fatty. FINDINGS: There is no evidence of suspicious mass, calcification, or architectural distortion to sugg est malignancy in either breast. There has been no suspicious interval change. IMPRESSION: 1. No mammographic evidence of malignancy. 2. Recommend routine screening mammography in one year. BI-RADS Category 1: Negative Reviewed, dictated and finalized at location A.
== END 2021-04-01 08:37 | disposition home or self-care (01) ==
LOC: ANHIMG 08:42
PROVIDERS: PCP Physician Assistant; Visit Provider Physician Assistant
DX: Z12.31 Encounter for screening mammogram for malignant neoplasm of breast (principal)
CPT/HCPCS: 77063; 77067

== ENCOUNTER 2021-04-22 07:56 | Outpatient (CLI) | payer MEDICARE, SELFPAY ==
--- NOTE | ~2021-04-22 | US_ITS ---
EXAMINATION: US soft tissue head and neck DATE: 04/22/2021 08:33 INDICATION: Left parotid mass. TECHNIQUE: Multiple grayscale and Doppler ultrasound images of the left parotid gland were obtained. COMPARISON: CT maxillofacial 12/19/2020 FINDINGS: In the superficial left parotid gland, there is a 2.6 x 2.4 x 2.0 cm mixed solid and cystic mass. There are normal lymph nodes in the right parotid gland. IMPRESSION: 1. 2.6 cm left parotid mass. The differential diagnosis includes Warthin tumor, benign mixed tumor, a nd less likely morales metastatic disease or primary malignancy. Ultrasound guided fine-needle aspirati on is recommended. Reviewed, dictated and finalized at location A. IMPRESSION: 1. 2.6 cm left parotid mass. The differential diagnosis includes Warthin tumor, benign mixed tumor, and less likely morales metastatic disease or primary malign narciso. Ultrasound guided fine-needle aspiration is recommended.
== END 2021-04-22 07:57 | disposition home or self-care (01) ==
PROVIDERS: PCP Physician Assistant; Visit Provider Otolaryngology
DX: D37.030 Neoplasm of uncertain behavior of the parotid salivary glands (principal)
CPT/HCPCS: 76536

== ENCOUNTER 2021-06-04 09:20 | Outpatient (CLI) | payer MEDICARE, SELFPAY ==
--- NOTE | ~2021-06-04 | US_ITS ---
EXAMINATION: US FNA w image guidance DATE: 06/04/2021 10:28 INDICATION: Left parotid mass. TECHNIQUE: The procedure and its benefits and risks were discussed with the patient. Risks specifically discusse d included bleeding. The patient verbalized understanding of the risks and agreed to proceed. The lef t face was prepped and draped in the usual sterile manner. 1% lidocaine was used for local anesthesi a. 6 passes were made with a 25G needle into the lesion under ultrasound guidance. There were no im mediate complications. FINDINGS: Grayscale ultrasound images demonstrate needles advanced into a 2.9 cm hypoechoic mass in superficial left parotid gland for biopsy. IMPRESSION: 1. Ultrasound-guided fine needle aspiration of a left parotid mass. Reviewed, dictated and finalized at location A.
== END 2021-06-04 09:21 | disposition home or self-care (01) ==
PROVIDERS: PCP Physician Assistant; Visit Provider Otolaryngology
DX: D37.030 Neoplasm of uncertain behavior of the parotid salivary glands (principal)
CPT/HCPCS: 10005; 88173; 88305

== ENCOUNTER 2021-10-23 16:46 | Inpatient (IN) | payer MEDICARE, SELFPAY ==
[2021-10-23] VITALS (7 sets, daily range): BP systolic 135–158; BP diastolic 62–99; PULSE 74–84; RESP 16–18; TEMP 36.1; O2SAT 97–100
--- NOTE | ~2021-10-23 | US_ITS ---
EXAMINATION: US venous doppler [facility] EXAM DATE: 10/27/2021 09:07 INDICATION: Right leg swelling and pain. TECHNIQUE: Multiple grayscale, color flow and Doppler images of the lower extremity deep venous syste ms bilaterally were obtained and reviewed. Comparison is made to prior examination from 12/21/2020. FINDINGS: Right side: The right common femoral, femoral and profunda veins demonstrate normal color flow, respi ratory variation, augmentation and compressibility. Compressibility, color flow confirmed within the right popliteal, posterior tibial, peroneal, and greater saphenous veins. Left side: The left common femoral, femoral and profunda veins demonstrate normal color flow, respira tory variation, augmentation and compressibility. Proximal greater saphenous vein patent. IMPRESSION: 1. No lower extremity deep venous thrombosis bilaterally. Reviewed, dictated and finalized at location A. [employer]
[2021-10-23 19:10] LABS: Basophils Percent Auto 0.6 % (0.2-1.2); Eosinophils Absolute Auto 0.4 K/mm3 (0-0.3); Eosinophils Percent Auto 5.1 % (0-4.4); Hematocrit 36.7 % (37.0-47.0); Hemoglobin 11.5 g/dL (12.0-15.0); Immature Granulocyte Absolute 0.03 K/mm3 (0.00-0.031); Immature Granulocyte Percent A 0.4 % (0-0.5); Immature Platelet Fraction Pct 5.1 % (0.9-11.2); Lymphocytes Absolute Auto 1.01 K/mm3 (0.9-3.2); Lymphocytes Percent Auto 14.8 % (18.3-44.2); Mean Corpuscular HGB Conc 31.3 g/dl (32-36); Mean Corpuscular Hemoglobin 26.7 pg (26-34); Mean Corpuscular Volume 85.2 fl (80-100); Mean Platelet Volume 10.7 fl (7.4-10.4); Monocytes Absolute Auto 0.7 K/mm3 (0.1-0.6); Monocytes Percent Auto 9.7 % (2.6-8.5); Neutrophils Absolute Auto 4.7 K/mm3 (1.3-6.7); Neutrophils Percent Auto 69.4 % (45.5-73.1); Platelet Count Result 97 k/mm3 (150-375); Red Blood Count 4.31 M/mm3 (4.2-5.4); White Blood Count 6.8 K/mm3 (4.5-10.0)
[2021-10-23 19:26] LABS: Alanine Aminotransferase 19 U/L (4-35); Albumin Level 4.2 g/dL (3.5-5.1); Alkaline Phosphatase 106 U/L (38-126); Anion Gap 9 mmol/L (8-16); Aspartate Amino Transferase 26 U/L (14-36); Bilirubin,Total 0.8 mg/dL (0.2-1.3); Blood Urea Nitrogen 19 mg/dL (7-17); Calcium 10.6 mg/dL (8.4-10.2); Carbon Dioxide 29 mmol/L (22-30); Chloride 101 mmol/L (98-107); Estimated CRCL calculation 72 ml/min; Estimated Glomerular Filt Rate > 60; Glucose 125 mg/dL (65-110); Potassium 3.6 mmol/L (3.4-5.0); Sodium 139 mmol/L (137-145)
--- NOTE | 2021-10-23 20:09 | ED.GENADULT ---
HPI - General Adult General Chief complaint: Skin/Abscess/Foreign Body Stated complaint: cellulitis leg Time Seen by Provider: 10/23/21 19:29 Source: patient Mode of arrival: ambulatory Limitations: no limitations History of Present Illness HPI narrative: Patient is 61-year-old diabetic with chief complaint of redness and swelling to her right lower leg over the past 2 days. Patient reports she has been trying to apply cool compresses and call her primary care for an appointment, but the redness and warmth continue to spread. Patient reports that she has had cellulitis in the past that she knew that he needs to be treated quickly. Patient reports that she has failed outpatient treatment for cellulitis to her left leg in the past and required admission and IV antibiotics. Patient is an [id number] amputee on the left side to cellulitis and vascular issues. Patient denies any fevers, chills, nausea, vomiting, diarrhea, chest pain or shortness of breath. Related Data Home Medications Medication Instructions Recorded Confirmed acetaminophen-codeine 300 tablet PO QID 12/19/20 12/19/20 carvedilol 12.5 mg PO BID 12/19/20 12/19/20 clopidogrel 75 mg PO DAILY 12/19/20 12/19/20 diclofenac sodium 1 ea TOPICAL DAILY PRN 12/19/20 12/19/20 docusate sodium 50 mg PO DAILY 12/19/20 12/19/20 gabapentin 600 mg PO TID 12/19/20 12/19/20 insulin lispro 4 unit SUBCUT BIDWMEAL 12/19/20 12/19/20 losartan-hydrochlorothiazide 0.5 tablet PO DAILY 12/19/20 12/19/20 oxybutynin chloride 5 mg PO TID 12/19/20 12/19/20 pioglitazone 15 mg PO DAILY 12/19/20 12/19/20 tizanidine 4 mg PO HS PRN 12/19/20 12/19/20 Allergies Allergy/AdvReac Type Severity Reaction Status Date / Time latex Allergy Rash Verified 10/23/21 18:59 Review of Systems Review of Systems: CONSTITUTIONAL: Denies fever, chills, or sweats. EYES: Denies visual changes, redness, or discharge. ENT: Denies rhinorrhea, congestion, sore throat, or otalgia. CARDIOVASCULAR: Denies chest pain, palpitations, or edema. RESPIRATORY: Denies cough or dyspnea. GASTROINTESTINAL: Denies abdominal pain, nausea, vomiting, or diarrhea. GENITOURINARY: Denies dysuria or hematuria. SKIN: Reports cellulitis denies rash or itching. MUSCULOSKELETAL: Denies back pain, joint pain, or myalgia. NEUROLOGIC: Denies headache, numbness, dizziness, or weakness. PSYCHIATRIC: Denies anxiety or depression. [facility] Past Medical History Medical History (Updated 10/23/21 @ 20:46 by Pat Tejada PA-C) Chronic anemia Depression Gastroesophageal reflux disease History of cerebrovascular accident History of DVT of lower extremity Hyperlipidemia Hypertension Irritable bowel syndrome Opioid use Osteomyelitis Peripheral neuropathy Peripheral vascular disease Seasonal allergies Thrombocytopenia Type 2 diabetes mellitus Hemoglobin A1c was 7.0% on 12/19/2020. 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 History of cholecystectomy History of left above knee amputation History of left below knee amputation (~06/2013) History of vascular surgery Left lower extremity stent. History of vein stripping Family History Family History Mother Cerebrovascular accident Diabetes mellitus Hypertension Father Diabetes mellitus Heart disease Hypertension Social History Social History (Updated 12/20/20 @ 03:44 by Amy Montgomery PA-C) Social History: Surrogate decision maker: Rina Parrish, daughter. Code status: Full code. Smoking packs per day: 1 Smoking cigarettes per day: 20.0 Years smoked: 30 Smoking pack-years: 30.00 Smoking status: Former smoker Tobacco type: cigarettes Alcohol intake: never Substance use: never Additional living arrangements comments: The patient lives in [place] with
[2021-10-23 22:43] LABS: CRP 7.5 mg/dL (<1.0)
[2021-10-23] MEDS: HYDROcodone/acetaminophen (*CRX) 5-325 MG TABLET 1 TAB PO (22:45)
--- NOTE | 2021-10-23 23:15 | ADMGEN ---
This patient, Delmy Hull, was admitted to Medical Room 253-01. Patient/family oriented to hospital policies and general routines including ID bracelet, bed and alarms, visiting hours, pain management, procedures, bathroom and other care routines, personal items, smoking policy, room service/diet, and visiting hours. Information on how to activate the Rapid Response Team has been discussed. Patient/Family are encouraged to report perceived risks to care and to ask questions if they do not understand what they are told or what they should do.
--- NOTE | 2021-10-24 00:22 | PM.IMHP ---
H&P: HPI History of Present Illness Date/Time: 10/24/21 00:22 Chief Complaint: Right leg redness Narrative: 61-year-old female with past medical history of diabetes mellitus, peripheral vascular disease with left lower extremity amputation, peripheral neuropathy, and prior episodes of cellulitis who presented to the ER with right lower extremity cellulitis. Patient noticed onset of symptoms 2 days ago. She tried applying cool compresses cheese extremity and elevating her extremity without relief in symptoms. In fact the erythema and warmth of the lower extremities continued to worsen and spread over a wider area. She also developed fevers up to 100?. She attempted to call her primary care physician's office for an appointment earlier today but did not receive a response. She has had cellulitis before and knows that he needs to be treated quickly so she came to the ER. She reports that with cellulitis of her left lower extremity in the past she had had failed oral antibiotics and required IV antibiotic administration. She has not had a significant history of cellulitis of the right lower extremity in the past. She denies having any fevers or chills. Her white count on admission was normal. But, her CRP was modestly elevated. Patient denies any injury to the extremity. She has not been on any recent antibiotic therapy. The patient reports the right lower extremity is extremely tender to palpation and pain at home was a joaquín 9/10 in intensity and aching. Her pain is currently a 7/10 in intensity. She states that she used to see pain management in that Tylenol codeine worked well for her. However she has not been prescribed that since October. She has had intermittent prescriptions for tramadol but has not had a tramadol prescription since July. Review of Systems Review of Systems: 12 systems were reviewed with pertinent positives and negatives per HPI. Except as documented in the HPI, all other systems were reviewed and are negative. [facility] Past Medical History Medical History (Updated 10/24/21 @ 05:07 by Rosi Butler DO) Chronic anemia Depression Gastroesophageal reflux disease History of cerebrovascular accident History of DVT of lower extremity Hyperlipidemia Hypertension Irritable bowel syndrome Opioid use Osteomyelitis Peripheral neuropathy Peripheral vascular disease Seasonal allergies Thrombocytopenia Type 2 diabetes mellitus Hemoglobin A1c was 7.0% on 12/19/2020. Urge urinary incontinence Urinary tract infection Surgical History Surgical History (Updated 10/24/21 @ 05:01 by Rosi Butler DO) History of cholecystectomy History of left above knee amputation (~06/2013) 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 History of vascular surgery Left lower extremity stent. History of vein stripping Family History Family History Mother Cerebrovascular accident Diabetes mellitus Hypertension Father Diabetes mellitus Heart disease Hypertension Social History Social History (Updated 10/24/21 @ 05:03 by Rosi Butler DO) Social History: Surrogate decision maker: Rina Parrish, daughter. Code status: Full code. She uses a scooter at home and has a transport wheelchair for tight spaces. She has difficulty ambulating with prostatic and prefers not to use it. Smoking packs per day: 1 Smoking cigarettes per day: 20.0 Years smoked: 30 Smoking pack-years: 30.00 Smoking status: Former smoker Tobacco type: cigarettes Second hand tobacco smoke exposure: Yes Alcohol intake: never Substance use: never Substance use type: does not use Additional living arrangements comments: The patient lives in [place] with her . Additional occupation/education comments: Disabled. Gender identity (if verbalized by the patient): Female Spiritual care concerns: No Meds Home Medications and Allerg
[2021-10-24 00:35] VITALS: BP 114/88; PULSE 81; RESP 20; TEMP 36.1; O2SAT 98
[2021-10-24 00:36] VITALS: BMI 47.9
[2021-10-24] MEDS: HYDROcodone/acetaminophen (*CRX) 5-325 MG TABLET 1 TAB PO (03:14)
[2021-10-24 06:00] VITALS: BP 113/46; PULSE 83; RESP 21; TEMP 36.1; O2SAT 100
[2021-10-24 06:05] LABS: Hematocrit 30.4 % (37.0-47.0); Hemoglobin 9.7 g/dL (12.0-15.0); Immature Platelet Fraction Pct 4.3 % (0.9-11.2); Mean Corpuscular HGB Conc 31.9 g/dl (32-36); Mean Corpuscular Hemoglobin 27.2 pg (26-34); Mean Corpuscular Volume 85.2 fl (80-100); Mean Platelet Volume 10.5 fl (7.4-10.4); Platelet Count Result 82 k/mm3 (150-375); Red Blood Count 3.57 M/mm3 (4.2-5.4); White Blood Count 5.3 K/mm3 (4.5-10.0)
[2021-10-24 06:28] LABS: Anion Gap 8 mmol/L (8-16); Blood Urea Nitrogen 21 mg/dL (7-17); Calcium 8.8 mg/dL (8.4-10.2); Carbon Dioxide 27 mmol/L (22-30); Chloride 100 mmol/L (98-107); Estimated CRCL calculation 70 ml/min; Estimated Glomerular Filt Rate > 60; Glucose 219 mg/dL (65-110); Potassium 3.8 mmol/L (3.4-5.0); Sodium 135 mmol/L (137-145)
[2021-10-24 07:35] LABS: Glucose Point of Care 192 mg/dl (65-105)
[2021-10-24] MEDS: hydroCHLOROthiazide 6.25 MG TABLET PO (08:05)
[2021-10-24] MEDS: OXYBUTYNIN CHLORIDE 5 MG TABLET PO ×3 (08:05→17:53)
[2021-10-24 08:06] VITALS: PULSE 83
[2021-10-24] MEDS: GABAPENTIN 300 MG CAPSULE 600 MG PO ×3 (08:06→17:53)
[2021-10-24] MEDS: carvediloL 12.5 MG TABLET PO ×2 (08:06→17:52)
[2021-10-24] MEDS: PIOGLITAZONE HCL 15 MG TAB PO (08:06)
[2021-10-24] MEDS: CLOPIDOGREL BISULFATE 75 MG TABLET PO (08:07)
[2021-10-24] MEDS: LOSARTAN POTASSIUM 25 MG TABLET PO (08:07)
[2021-10-24] MEDS: DOCUSATE SODIUM LIQ 100 MG/10 ML UDC 50 MG PO (08:07)
--- NOTE | 2021-10-24 10:14 | PM.IMPN ---
Progress Note: A&P Assessment and Plan (1) Cellulitis: Qualifiers: Laterality: right Site of cellulitis: extremity Site of cellulitis of extremity: lower extremity Qualified Code(s): L03.115 - Cellulitis of right lower limb Code(s): L03.90 - Cellulitis, unspecified Status: Acute Assessment and Plan: Patient has been started on empiric antibiotic therapy with Primaxin and vancomycin per antibiotic stewardship guidelines. Blood cultures are pending. [place] 5/325 the been ordered for pain 4-6 and oxycodone 5 mg q.4 hours p.r.n. pain 7 in 10. The patient is evidently seen pain management in the past. She did have Tylenol with codeine listed on her home med rec but this had not been filled since October. I have asked nursing staff to remove this medication for the patient's med rec. (2) Type 2 diabetes mellitus: Code(s): E11.9 - Type 2 diabetes mellitus without complications Status: Chronic Assessment and Plan: Patient has historically well-controlled diabetes mellitus and is currently euglycemic. Will continue home oral hypoglycemic agents and consistent carbohydrate diet. Will monitor Accu-Cheks a.c. HS and add mild sliding scale insulin with hypoglycemia protocol. Additional Plan 10/24/2021 Will continue with IV antibiotics. Wait for culture reports. Possible discharge in the morning. Subjective Date/time seen: 10/24/21 10:14 Patient was seen during the morning rounds today. Swelling and redness of the right leg slightly better. No shortness of breath or chest pain. No abdominal pain, nausea, no vomiting. Mood stable Exam Narrative: PHYSICAL EXAM: WEIGHT 108 kg BMI 45 General: Obese, no acute distress HEENT: Mucous membranes are moist, crowded posterior oropharynx, dental caries noted in posterior molars bilateral upper jaw, poor dentition overall with multiple missing teeth in both upper and lower jaw, pupils are equal and reactive evidence of bilateral cataract extraction with lens replacement Respiratory: Clear to auscultation bilaterally, no increased work of breathing Cardiovascular: Regular rate, regular rhythm Gastrointestinal: Soft, nontender, obese, positive bowel sounds Skin: Erythema of the left lower extremity from about mid cardoza to the ankle almost circumferential extending down the lateral malleolus, Musculoskeletal: Left above the knee amputation, nonpitting edema left lower extremity Neurological: Alert and oriented, speech is clear, no facial asymmetry, moves all extremities equally Psychiatric: Appropriate mood and affect, pleasant and cooperative : Deferred Hematologic/lymphatic: No petechiae, no bruising, no anterior cervical lymphadenopathy Const: General: cooperative and no acute distress Orientation/consciousness: oriented to person, oriented to place, oriented to time and patient oriented x3 HENMT: Head: normal to inspection Ears: hearing grossly normal bilaterally and external ears normal General nose exam: Normal external nose present Face and sinus: normal facial exam Mouth: Yes Normal oral and palatal mucosa present Eyes: General: appearance normal, both eyes and all related structures Neck: Neck: normal visual inspection and full ROM Chest: Chest palpation & inspection: normal inspection of the chest and normal palpation of entire chest wall Resp: Effort & Inspection: normal respiratory effort Auscultation: clear to auscultation bilaterally Cardio: Jugular venous distension: no JVD Palpation: normal PMI Rate: regular rate Heart sounds: S1 normal heart sound present and S2 normal heart sound present GI: Inspection: normal to inspection GI Palp: No abdominal tenderness Neuro: General: oriented to person, oriented to place, oriented to time and patient oriented x3 Cranial nerves: Yes CN's II-XII intact bilaterally Speech: normal speech Gait exam (Neuro): Normal gait present Motor exam (neuro): 5/5 motor strength present thro
[2021-10-24 11:49] LABS: Glucose Point of Care 290 mg/dl (65-105)
[2021-10-24] MEDS: INSULIN ASPART (*BKC) 100 UNITS/ML SUB-Q (12:06)
[2021-10-24 14:00] VITALS: BP 139/62; PULSE 81; RESP 20; TEMP 37; O2SAT 99
[2021-10-24] MEDS: oxyCODONE HCL (*CRX) 5 MG TAB IR PO ×2 (15:09→20:15)
[2021-10-24 16:44] LABS: Glucose Point of Care 178 mg/dl (65-105)
[2021-10-24 17:52] VITALS: PULSE 81
[2021-10-24 21:18] LABS: Glucose Point of Care 166 mg/dl (65-105)
[2021-10-24 22:00] VITALS: BP 126/50; PULSE 87; RESP 18; TEMP 36.2; O2SAT 96
[2021-10-25 05:26] LABS: Estimated CRCL calculation 63 ml/min; Estimated Glomerular Filt Rate 56
[2021-10-25 06:00] VITALS: BP 120/51; PULSE 81; RESP 18; TEMP 36.6; O2SAT 96
[2021-10-25 07:49] LABS: Glucose Point of Care 151 mg/dl (65-105)
[2021-10-25] MEDS: hydroCHLOROthiazide 6.25 MG TABLET PO (08:16)
[2021-10-25] MEDS: PIOGLITAZONE HCL 15 MG TAB PO (08:16)
[2021-10-25 08:17] VITALS: PULSE 81
[2021-10-25] MEDS: carvediloL 12.5 MG TABLET PO ×2 (08:17→16:55)
[2021-10-25] MEDS: CLOPIDOGREL BISULFATE 75 MG TABLET PO (08:17)
[2021-10-25] MEDS: GABAPENTIN 300 MG CAPSULE 600 MG PO ×3 (08:17→16:55)
[2021-10-25] MEDS: OXYBUTYNIN CHLORIDE 5 MG TABLET PO ×3 (08:17→16:55)
[2021-10-25] MEDS: LOSARTAN POTASSIUM 25 MG TABLET PO (08:17)
[2021-10-25] MEDS: DOCUSATE SODIUM LIQ 100 MG/10 ML UDC 50 MG PO (08:17)
[2021-10-25 09:17] LABS: Vancomycin Trough 20.2 ug/mL (10.0-20.0)
--- NOTE | 2021-10-25 09:44 | PM.IMPN ---
Progress Note: A&P Assessment and Plan (1) Cellulitis: Qualifiers: Laterality: right Site of cellulitis: extremity Site of cellulitis of extremity: lower extremity Qualified Code(s): L03.115 - Cellulitis of right lower limb Code(s): L03.90 - Cellulitis, unspecified Status: Acute Assessment and Plan: Patient has been started on empiric antibiotic therapy with Primaxin and vancomycin per antibiotic stewardship guidelines. Blood cultures are pending. [place] 5/325 the been ordered for pain 4-6 and oxycodone 5 mg q.4 hours p.r.n. pain 7 in 10. The patient is evidently seen pain management in the past. She did have Tylenol with codeine listed on her home med rec but this had not been filled since October. I have asked nursing staff to remove this medication for the patient's med rec. (2) Type 2 diabetes mellitus: Code(s): E11.9 - Type 2 diabetes mellitus without complications Status: Chronic Assessment and Plan: Patient has historically well-controlled diabetes mellitus and is currently euglycemic. Will continue home oral hypoglycemic agents and consistent carbohydrate diet. Will monitor Accu-Cheks a.c. HS and add mild sliding scale insulin with hypoglycemia protocol. Additional Plan 10/24/2021 Will continue with IV antibiotics. Wait for culture reports. 10/25/2021 Patient right lower extremity is less swollen and less at today. Will continue with IV antibiotics. Blood cultures negative. Possible discharge in the morning. Subjective Date/time seen: 10/25/21 09:44 Patient was seen during the morning rounds today. Patient swelling of right lower extremity is slightly better. No shortness of breath or chest pain. No abdominal pain, nausea, no vomiting. Mood stable. Review of Systems Review of Systems: All systems reviewed & are unremarkable except as noted in HPI and below (the history and physical examination.) Exam Narrative: PHYSICAL EXAM: WEIGHT 108 kg BMI 45 General: Obese, no acute distress HEENT: Mucous membranes are moist, crowded posterior oropharynx, dental caries noted in posterior molars bilateral upper jaw, poor dentition overall with multiple missing teeth in both upper and lower jaw, pupils are equal and reactive evidence of bilateral cataract extraction with lens replacement Respiratory: Clear to auscultation bilaterally, no increased work of breathing Cardiovascular: Regular rate, regular rhythm Gastrointestinal: Soft, nontender, obese, positive bowel sounds Skin: Erythema of the left lower extremity from about mid cardoza to the ankle almost circumferential extending down the lateral malleolus, Musculoskeletal: Left above the knee amputation, nonpitting edema left lower extremity Neurological: Alert and oriented, speech is clear, no facial asymmetry, moves all extremities equally Psychiatric: Appropriate mood and affect, pleasant and cooperative : Deferred Hematologic/lymphatic: No petechiae, no bruising, no anterior cervical lymphadenopathy Const: General: cooperative and no acute distress Orientation/consciousness: oriented to person, oriented to place, oriented to time and patient oriented x3 HENMT: Head: normal to inspection Ears: hearing grossly normal bilaterally and external ears normal General nose exam: Normal external nose present Face and sinus: normal facial exam Mouth: Yes Normal oral and palatal mucosa present Eyes: General: appearance normal, both eyes and all related structures Neck: Neck: normal visual inspection and full ROM Chest: Chest palpation & inspection: normal inspection of the chest and normal palpation of entire chest wall Resp: Effort & Inspection: normal respiratory effort Auscultation: clear to auscultation bilaterally Cardio: Jugular venous distension: no JVD Palpation: normal PMI Rate: regular rate Heart sounds: S1 normal heart sound present and S2 normal heart sound present GI: Inspection: normal to inspecti
[2021-10-25 11:58] LABS: Glucose Point of Care 271 mg/dl (65-105)
[2021-10-25] MEDS: INSULIN ASPART (*BKC) 100 UNITS/ML SUB-Q (12:01)
[2021-10-25] MEDS: oxyCODONE HCL (*CRX) 5 MG TAB IR PO ×2 (12:57→20:54)
[2021-10-25 14:00] VITALS: BP 105/50; PULSE 83; RESP 16; TEMP 36.9; O2SAT 97
[2021-10-25 16:30] LABS: Glucose Point of Care 171 mg/dl (65-105)
[2021-10-25 16:55] VITALS: PULSE 83
[2021-10-25 21:02] VITALS: BP 117/55; PULSE 76; RESP 22; TEMP 36.5; O2SAT 98
[2021-10-25 21:10] LABS: Glucose Point of Care 227 mg/dl (65-105)
[2021-10-26 03:26] VITALS: BP 121/51; PULSE 83; RESP 20; TEMP 36.1; O2SAT 94
[2021-10-26 08:01] LABS: Glucose Point of Care 152 mg/dl (65-105)
[2021-10-26] MEDS: LOSARTAN POTASSIUM 25 MG TABLET PO (08:50)
[2021-10-26] MEDS: PIOGLITAZONE HCL 15 MG TAB PO (08:50)
[2021-10-26] MEDS: CLOPIDOGREL BISULFATE 75 MG TABLET PO (08:50)
[2021-10-26] MEDS: hydroCHLOROthiazide 6.25 MG TABLET PO (08:50)
[2021-10-26] MEDS: carvediloL 12.5 MG TABLET PO ×2 (08:51→17:00)
[2021-10-26] MEDS: GABAPENTIN 300 MG CAPSULE 600 MG PO ×3 (08:51→17:00)
[2021-10-26] MEDS: DOCUSATE SODIUM LIQ 100 MG/10 ML UDC 50 MG PO (08:51)
[2021-10-26] MEDS: OXYBUTYNIN CHLORIDE 5 MG TABLET PO ×3 (08:51→17:01)
--- NOTE | 2021-10-26 09:45 | PM.IMPN ---
Progress Note: A&P Assessment and Plan (1) Cellulitis: Qualifiers: Laterality: right Site of cellulitis: extremity Site of cellulitis of extremity: lower extremity Qualified Code(s): L03.115 - Cellulitis of right lower limb Code(s): L03.90 - Cellulitis, unspecified Status: Acute Assessment and Plan: Patient has been started on empiric antibiotic therapy with Primaxin and vancomycin per antibiotic stewardship guidelines. Blood cultures are pending. [place] 5/325 the been ordered for pain 4-6 and oxycodone 5 mg q.4 hours p.r.n. pain 7 in 10. The patient is evidently seen pain management in the past. She did have Tylenol with codeine listed on her home med rec but this had not been filled since October. I have asked nursing staff to remove this medication for the patient's med rec. (2) Type 2 diabetes mellitus: Code(s): E11.9 - Type 2 diabetes mellitus without complications Status: Chronic Assessment and Plan: Patient has historically well-controlled diabetes mellitus and is currently euglycemic. Will continue home oral hypoglycemic agents and consistent carbohydrate diet. Will monitor Accu-Cheks a.c. HS and add mild sliding scale insulin with hypoglycemia protocol. Additional Plan 10/24/2021 Will continue with IV antibiotics. Wait for culture reports. 10/25/2021 Patient right lower extremity is less swollen and less at today. Will continue with IV antibiotics. Blood cultures negative. Possible discharge in the morning. October 26, 2021 Will continue with IV antibiotics. Swelling slightly better. Will also do ultrasound to check for blood clot otherwise continue current treatment. Subjective Date/time seen: 10/26/21 09:45 Patient was seen during the morning rounds today. Patient still have swelling in the right lower extremity. Slightly better. No shortness of breath or chest pain. No abdominal pain, nausea, no vomiting. Mood stable. Review of Systems Review of Systems: All systems reviewed & are unremarkable except as noted in HPI and below (the history and physical examination.) Exam Narrative: PHYSICAL EXAM: WEIGHT 108 kg BMI 45 General: Obese, no acute distress HEENT: Mucous membranes are moist, crowded posterior oropharynx, dental caries noted in posterior molars bilateral upper jaw, poor dentition overall with multiple missing teeth in both upper and lower jaw, pupils are equal and reactive evidence of bilateral cataract extraction with lens replacement Respiratory: Clear to auscultation bilaterally, no increased work of breathing Cardiovascular: Regular rate, regular rhythm Gastrointestinal: Soft, nontender, obese, positive bowel sounds Skin: Erythema of the left lower extremity from about mid cardoza to the ankle almost circumferential extending down the lateral malleolus, Musculoskeletal: Left above the knee amputation, nonpitting edema left lower extremity Neurological: Alert and oriented, speech is clear, no facial asymmetry, moves all extremities equally Psychiatric: Appropriate mood and affect, pleasant and cooperative : Deferred Hematologic/lymphatic: No petechiae, no bruising, no anterior cervical lymphadenopathy Const: General: cooperative and no acute distress Orientation/consciousness: oriented to person, oriented to place, oriented to time and patient oriented x3 HENMT: Head: normal to inspection Ears: hearing grossly normal bilaterally and external ears normal General nose exam: Normal external nose present Face and sinus: normal facial exam Mouth: Yes Normal oral and palatal mucosa present Eyes: General: appearance normal, both eyes and all related structures Neck: Neck: normal visual inspection and full ROM Chest: Chest palpation & inspection: normal inspection of the chest and normal palpation of entire chest wall Resp: Effort & Inspection: normal respiratory effort Auscultation: clear to auscultation bilaterally Cardio: Jugular veno
[2021-10-26 11:28] LABS: Glucose Point of Care 289 mg/dl (65-105)
[2021-10-26] MEDS: INSULIN ASPART (*BKC) 100 UNITS/ML SUB-Q ×2 (11:38→17:00)
[2021-10-26] MEDS: HEPARIN SODIUM 5,000 UNITS/ML VIAL 5000 UNITS SUB-Q ×2 (11:38→20:27)
[2021-10-26 14:00] VITALS: BP 121/58; PULSE 75; RESP 20; TEMP 36.9; O2SAT 98
[2021-10-26] MEDS: oxyCODONE HCL (*CRX) 5 MG TAB IR PO ×2 (15:13→22:10)
[2021-10-26 16:43] LABS: Glucose Point of Care 207 mg/dl (65-105)
[2021-10-26 20:00] VITALS: BP 118/55; PULSE 76; RESP 20; TEMP 36.1; O2SAT 99
[2021-10-26 21:00] LABS: Glucose Point of Care 172 mg/dl (65-105)
[2021-10-27 03:26] VITALS: BP 112/49; PULSE 78; RESP 20; TEMP 36; O2SAT 93
[2021-10-27 06:20] LABS: Basophils Percent Auto 0.8 % (0.2-1.2); Eosinophils Absolute Auto 0.4 K/mm3 (0-0.3); Eosinophils Percent Auto 7.8 % (0-4.4); Hematocrit 31.3 % (37.0-47.0); Hemoglobin 9.7 g/dL (12.0-15.0); Immature Granulocyte Absolute 0.02 K/mm3 (0.00-0.031); Immature Granulocyte Percent A 0.4 % (0-0.5); Lymphocytes Absolute Auto 0.91 K/mm3 (0.9-3.2); Lymphocytes Percent Auto 17.8 % (18.3-44.2); Mean Corpuscular Hemoglobin 26.6 pg (26-34); Mean Platelet Volume 10.2 fl (7.4-10.4); Monocytes Absolute Auto 0.5 K/mm3 (0.1-0.6); Monocytes Percent Auto 10.6 % (2.6-8.5); Neutrophils Absolute Auto 3.2 K/mm3 (1.3-6.7); Neutrophils Percent Auto 62.6 % (45.5-73.1); Platelet Count Result 82 k/mm3 (150-375); Red Blood Count 3.64 M/mm3 (4.2-5.4); White Blood Count 5.1 K/mm3 (4.5-10.0)
[2021-10-27 06:24] LABS: Alanine Aminotransferase 13 U/L (4-35); Albumin Level 3.1 g/dL (3.5-5.1); Alkaline Phosphatase 74 U/L (38-126); Anion Gap 7 mmol/L (8-16); Aspartate Amino Transferase 23 U/L (14-36); Bilirubin,Total 0.5 mg/dL (0.2-1.3); Blood Urea Nitrogen 19 mg/dL (7-17); Calcium 8.2 mg/dL (8.4-10.2); Carbon Dioxide 26 mmol/L (22-30); Chloride 99 mmol/L (98-107); Estimated CRCL calculation 70 ml/min; Estimated Glomerular Filt Rate > 60; Glucose 160 mg/dL (65-110); Potassium 3.6 mmol/L (3.4-5.0); Sodium 132 mmol/L (137-145)
[2021-10-27 07:59] LABS: Glucose Point of Care 143 mg/dl (65-105)
[2021-10-27] MEDS: carvediloL 12.5 MG TABLET PO ×2 (08:06→16:56)
[2021-10-27] MEDS: PIOGLITAZONE HCL 15 MG TAB PO (08:06)
[2021-10-27] MEDS: OXYBUTYNIN CHLORIDE 5 MG TABLET PO ×3 (08:06→16:57)
[2021-10-27] MEDS: GABAPENTIN 300 MG CAPSULE 600 MG PO ×3 (08:07→16:56)
[2021-10-27] MEDS: DOCUSATE SODIUM LIQ 100 MG/10 ML UDC 50 MG PO (08:07)
[2021-10-27] MEDS: CLOPIDOGREL BISULFATE 75 MG TABLET PO (08:07)
[2021-10-27] MEDS: LOSARTAN POTASSIUM 25 MG TABLET PO (08:07)
[2021-10-27] MEDS: HEPARIN SODIUM 5,000 UNITS/ML VIAL 5000 UNITS SUB-Q ×2 (08:08→20:42)
[2021-10-27] MEDS: hydroCHLOROthiazide 6.25 MG TABLET PO (08:08)
--- NOTE | 2021-10-27 10:03 | PM.IMPN ---
Progress Note: A&P Assessment and Plan (1) Cellulitis: Qualifiers: Laterality: right Site of cellulitis: extremity Site of cellulitis of extremity: lower extremity Qualified Code(s): L03.115 - Cellulitis of right lower limb Code(s): L03.90 - Cellulitis, unspecified Status: Acute Assessment and Plan: Patient has been started on empiric antibiotic therapy with Primaxin and vancomycin per antibiotic stewardship guidelines. Blood cultures are pending. [place] 5/325 the been ordered for pain 4-6 and oxycodone 5 mg q.4 hours p.r.n. pain 7 in 10. The patient is evidently seen pain management in the past. She did have Tylenol with codeine listed on her home med rec but this had not been filled since October. I have asked nursing staff to remove this medication for the patient's med rec. (2) Type 2 diabetes mellitus: Code(s): E11.9 - Type 2 diabetes mellitus without complications Status: Chronic Assessment and Plan: Patient has historically well-controlled diabetes mellitus and is currently euglycemic. Will continue home oral hypoglycemic agents and consistent carbohydrate diet. Will monitor Accu-Cheks a.c. HS and add mild sliding scale insulin with hypoglycemia protocol. Additional Plan 10/24/2021 Will continue with IV antibiotics. Wait for culture reports. 10/25/2021 Patient right lower extremity is less swollen and less at today. Will continue with IV antibiotics. Blood cultures negative. Possible discharge in the morning. October 26, 2021 Will continue with IV antibiotics. Swelling slightly better. Will also do ultrasound to check for blood clot otherwise continue current treatment. October 27, 2021 DVT is negative. The right leg looks slightly better. Plan is to continue with IV antibiotics. Subjective Date/time seen: 10/27/21 10:03 Patient was seen during the morning rounds today. Patient right leg looks slightly better. Decreased swelling redness. Pain is controlled. No shortness of breath or chest pain. No abdominal pain, nausea, no vomiting. Mood stable. Review of Systems Review of Systems: All systems reviewed & are unremarkable except as noted in HPI and below (the history and physical examination.) Exam Narrative: PHYSICAL EXAM: WEIGHT 108 kg BMI 45 General: Obese, no acute distress HEENT: Mucous membranes are moist, crowded posterior oropharynx, dental caries noted in posterior molars bilateral upper jaw, poor dentition overall with multiple missing teeth in both upper and lower jaw, pupils are equal and reactive evidence of bilateral cataract extraction with lens replacement Respiratory: Clear to auscultation bilaterally, no increased work of breathing Cardiovascular: Regular rate, regular rhythm Gastrointestinal: Soft, nontender, obese, positive bowel sounds Skin: Erythema of the left lower extremity from about mid cardoza to the ankle almost circumferential extending down the lateral malleolus, Musculoskeletal: Left above the knee amputation, nonpitting edema left lower extremity Neurological: Alert and oriented, speech is clear, no facial asymmetry, moves all extremities equally Psychiatric: Appropriate mood and affect, pleasant and cooperative : Deferred Hematologic/lymphatic: No petechiae, no bruising, no anterior cervical lymphadenopathy Const: General: cooperative and no acute distress Orientation/consciousness: oriented to person, oriented to place, oriented to time and patient oriented x3 HENMT: Head: normal to inspection Ears: hearing grossly normal bilaterally and external ears normal General nose exam: Normal external nose present Face and sinus: normal facial exam Mouth: Yes Normal oral and palatal mucosa present Eyes: General: appearance normal, both eyes and all related structures Neck: Neck: normal visual inspection and full ROM Chest: Chest palpation & inspection: normal inspection of the chest and normal palpation of entire chest wal
[2021-10-27 11:55] LABS: Glucose Point of Care 206 mg/dl (65-105)
[2021-10-27] MEDS: INSULIN ASPART (*BKC) 100 UNITS/ML SUB-Q (13:26)
[2021-10-27 14:00] VITALS: BP 114/55; PULSE 80; RESP 16; TEMP 37; O2SAT 98
[2021-10-27] MEDS: oxyCODONE HCL (*CRX) 5 MG TAB IR PO (15:43)
[2021-10-27 17:58] LABS: Glucose Point of Care 154 mg/dl (65-105)
[2021-10-27 19:25] VITALS: BP 106/52; PULSE 77; RESP 18; TEMP 36.5; O2SAT 97
[2021-10-27 21:55] LABS: Glucose Point of Care 157 mg/dl (65-105)
[2021-10-28 03:20] VITALS: BP 114/77; PULSE 83; RESP 18; TEMP 36.6; O2SAT 97
[2021-10-28 07:18] LABS: Glucose Point of Care 161 mg/dl (65-105)
[2021-10-28 09:35] LABS: Vancomycin Trough 35.2 ug/mL (10.0-20.0)
[2021-10-28 09:36] VITALS: PULSE 80
[2021-10-28] MEDS: carvediloL 12.5 MG TABLET PO ×2 (09:36→16:44)
[2021-10-28] MEDS: CLOPIDOGREL BISULFATE 75 MG TABLET PO (09:36)
[2021-10-28] MEDS: OXYBUTYNIN CHLORIDE 5 MG TABLET PO ×3 (09:37→16:44)
[2021-10-28] MEDS: LOSARTAN POTASSIUM 25 MG TABLET PO (09:37)
[2021-10-28] MEDS: PIOGLITAZONE HCL 15 MG TAB PO (09:37)
[2021-10-28] MEDS: hydroCHLOROthiazide 6.25 MG TABLET PO (09:37)
[2021-10-28] MEDS: DOCUSATE SODIUM LIQ 100 MG/10 ML UDC 50 MG PO (09:37)
[2021-10-28] MEDS: GABAPENTIN 300 MG CAPSULE 600 MG PO ×3 (09:38→16:44)
--- NOTE | 2021-10-28 10:15 | PM.IMPN ---
Progress Note: A&P Assessment and Plan (1) Cellulitis: Qualifiers: Laterality: right Site of cellulitis: extremity Site of cellulitis of extremity: lower extremity Qualified Code(s): L03.115 - Cellulitis of right lower limb Code(s): L03.90 - Cellulitis, unspecified Status: Acute Assessment and Plan: Patient has been started on empiric antibiotic therapy with Primaxin and vancomycin per antibiotic stewardship guidelines. Blood cultures are pending. [place] 5/325 the been ordered for pain 4-6 and oxycodone 5 mg q.4 hours p.r.n. pain 7 in 10. The patient is evidently seen pain management in the past. She did have Tylenol with codeine listed on her home med rec but this had not been filled since October. I have asked nursing staff to remove this medication for the patient's med rec. (2) Type 2 diabetes mellitus: Code(s): E11.9 - Type 2 diabetes mellitus without complications Status: Chronic Assessment and Plan: Patient has historically well-controlled diabetes mellitus and is currently euglycemic. Will continue home oral hypoglycemic agents and consistent carbohydrate diet. Will monitor Accu-Cheks a.c. HS and add mild sliding scale insulin with hypoglycemia protocol. Additional Plan 10/24/2021 Will continue with IV antibiotics. Wait for culture reports. 10/25/2021 Patient right lower extremity is less swollen and less at today. Will continue with IV antibiotics. Blood cultures negative. Possible discharge in the morning. October 26, 2021 Will continue with IV antibiotics. Swelling slightly better. Will also do ultrasound to check for blood clot otherwise continue current treatment. October 27, 2021 DVT is negative. The right leg looks slightly better. Plan is to continue with IV antibiotics. October 28, 2021 Patient right lower extremity looks much better today. Still has residual redness. Plan is to continue with IV antibiotics today, arrange home IV antibiotics. Case discussed with adult day care worker, she is going to work on getting home health and home IV antibiotics arranged. Subjective Date/time seen: 10/28/21 10:15 Patient was seen during the morning rounds today. Patient right lower extremity swelling is much better today. No shortness of breath or chest pain. No abdominal pain, no nausea, no vomiting. Mood stable. Review of Systems Review of Systems: All systems reviewed & are unremarkable except as noted in HPI and below (the history and physical examination.) Exam Narrative: PHYSICAL EXAM: WEIGHT 108 kg BMI 45 General: Obese, no acute distress HEENT: Mucous membranes are moist, crowded posterior oropharynx, dental caries noted in posterior molars bilateral upper jaw, poor dentition overall with multiple missing teeth in both upper and lower jaw, pupils are equal and reactive evidence of bilateral cataract extraction with lens replacement Respiratory: Clear to auscultation bilaterally, no increased work of breathing Cardiovascular: Regular rate, regular rhythm Gastrointestinal: Soft, nontender, obese, positive bowel sounds Skin: Erythema of the left lower extremity from about mid cardoza to the ankle almost circumferential extending down the lateral malleolus, Musculoskeletal: Left above the knee amputation, nonpitting edema left lower extremity Neurological: Alert and oriented, speech is clear, no facial asymmetry, moves all extremities equally Psychiatric: Appropriate mood and affect, pleasant and cooperative : Deferred Hematologic/lymphatic: No petechiae, no bruising, no anterior cervical lymphadenopathy Const: General: cooperative and no acute distress Orientation/consciousness: oriented to person, oriented to place, oriented to time and patient oriented x3 HENMT: Head: normal to inspection Ears: hearing grossly normal bilaterally and external ears normal General nose exam: Normal external nose present Face and sinus: normal facial exam Mouth: Yes Norm
[2021-10-28 11:21] LABS: Glucose Point of Care 185 mg/dl (65-105)
[2021-10-28 14:00] VITALS: BP 115/53; PULSE 83; RESP 18; TEMP 36.4; O2SAT 99
[2021-10-28] MEDS: LIDOCAINE HCL 1% PF INJ 5 ML VIAL INFILTRATE (14:40)
[2021-10-28] MEDS: polyethylene glycoL 3350 17 GM POWD.PACK PO (15:29)
[2021-10-28 16:20] LABS: Glucose Point of Care 167 mg/dl (65-105)
[2021-10-28 16:44] VITALS: PULSE 84
[2021-10-28 20:24] VITALS: BP 140/62; PULSE 86; RESP 20; TEMP 36.2; O2SAT 94
[2021-10-28] MEDS: CENTRAL LINE FLUSH 10 ML IV PUSH (20:59)
[2021-10-28 21:39] LABS: Glucose Point of Care 196 mg/dl (65-105)
[2021-10-29] MEDS: oxyCODONE HCL (*CRX) 5 MG TAB IR PO ×2 (02:09→18:47)
[2021-10-29 04:07] VITALS: BP 132/89; PULSE 84; RESP 20; TEMP 36.3; O2SAT 95
[2021-10-29] MEDS: CENTRAL LINE FLUSH 10 ML IV PUSH ×3 (05:11→20:14)
[2021-10-29 07:36] LABS: Glucose Point of Care 149 mg/dl (65-105)
[2021-10-29 08:18] VITALS: PULSE 82
[2021-10-29] MEDS: carvediloL 12.5 MG TABLET PO ×2 (08:18→16:11)
[2021-10-29] MEDS: OXYBUTYNIN CHLORIDE 5 MG TABLET PO ×3 (08:18→16:10)
[2021-10-29] MEDS: LOSARTAN POTASSIUM 25 MG TABLET PO (08:18)
[2021-10-29] MEDS: CLOPIDOGREL BISULFATE 75 MG TABLET PO (08:18)
[2021-10-29] MEDS: GABAPENTIN 300 MG CAPSULE 600 MG PO ×3 (08:18→16:11)
[2021-10-29] MEDS: hydroCHLOROthiazide 6.25 MG TABLET PO (08:18)
[2021-10-29] MEDS: PIOGLITAZONE HCL 15 MG TAB PO (08:18)
[2021-10-29] MEDS: DOCUSATE SODIUM LIQ 100 MG/10 ML UDC 50 MG PO (08:25)
[2021-10-29 08:50] LABS: Estimated CRCL calculation 78 ml/min; Estimated Glomerular Filt Rate > 60
[2021-10-29 08:56] LABS: Vancomycin Trough 15.6 ug/mL (10.0-20.0)
[2021-10-29 11:46] LABS: Glucose Point of Care 232 mg/dl (65-105)
[2021-10-29] MEDS: INSULIN ASPART (*BKC) 100 UNITS/ML SUB-Q (11:54)
[2021-10-29 14:20] VITALS: BP 111/51; PULSE 81; RESP 14; TEMP 36.6; O2SAT 96
--- NOTE | 2021-10-29 15:18 | PM.IMPN ---
Progress Note: A&P Assessment and Plan (1) Cellulitis: Qualifiers: Laterality: right Site of cellulitis: extremity Site of cellulitis of extremity: lower extremity Qualified Code(s): L03.115 - Cellulitis of right lower limb Code(s): L03.90 - Cellulitis, unspecified Status: Acute Assessment and Plan: Patient has been started on empiric antibiotic therapy with IV Primaxin and vancomycin #6 per antibiotic stewardship guidelines. Tomorrow will be #7. Of antibiotics, may be able to discharge with oral antibiotics for 3 more days depending on her examination. Blood cultures showed one bottle growth of coag-negative staph. I believe this is a contamination and the other blood culture is negative to date. [place] 5/325 the been ordered for pain 4-6 and oxycodone 5 mg q.4 hours p.r.n. pain 7 in 10. The patient is evidently seen pain management in the past. She did have Tylenol with codeine listed on her home med rec but this had not been filled since October. Previous provider asked nursing staff to remove this medication for the patient's med rec. Continue monitoring. (2) Type 2 diabetes mellitus: Code(s): E11.9 - Type 2 diabetes mellitus without complications Status: Chronic Assessment and Plan: Patient has historically well-controlled diabetes mellitus and is currently euglycemic. Will continue home oral hypoglycemic agents and consistent carbohydrate diet. Will monitor Accu-Cheks a.c. HS and add mild sliding scale insulin with hypoglycemia protocol. (3) Right leg swelling: Code(s): M79.89 - Other specified soft tissue disorders Status: Acute Assessment and Plan: Negative for DVT. Most likely secondary to IV antibiotics and cellulitis infection. She has been on her home HCTZ without any improvement. Will give IV Lasix 20 mg x 1 and see how her leg is doing tomorrow. (4) Hypertension: Code(s): I10 - Essential (primary) hypertension Status: Chronic Assessment and Plan: Blood pressure stable 111/51 this afternoon. Continue on home medications. Make adjustments if needed. Time Spent With Patient Time with patient: 25 - 35 minutes Subjective Date/time seen: 10/29/21 15:18 Interval history: Date of service 10/29/2020: Patient reports feeling well today without any complaints. States her leg cellulitis is improving slowly, her only concerns at this time is some leg swelling and pain. Denies any fevers, chills, nausea, vomiting, abdominal pain, chest pain, shortness of breath, cough, or any other symptoms at this time. Review of Systems Review of Systems: All systems reviewed & are unremarkable except as noted in HPI and below (the history and physical examination.) Exam Narrative: General: 61-year-old woman laying flat in bed, talking to the nurse. Appears comfortable. In no acute distress. Skin: No jaundice or cyanosis. Good skin turgor. Neck: Full range of motion. Supple. Respiratory: Lungs are clear to auscultation bilaterally. No bony chest wall tenderness. Cardiovascular: The heart has a regular rate and rhythm without murmur. Lower extremities: Right lower leg with some petechia noted to lower extremity, some blanching erythema to bilateral lower extremity and heel. Some warmth noted, no significant abnormality. Left BKA. No lower extremity edema. Distal pulses are easily palpated. No calf tenderness to palpation. Gastrointestinal: The abdomen is soft, nontender and nondistended with active bowel sounds. Psychiatric: Lucid and oriented. Memory intact. Neurologic: No focal deficits. Speech is clear. No facial drooping. Objective Data Vital Signs Vital Signs: Vital Signs - 24 hr 10/28/21 16:44 10/28/21 20:24 10/29/21 04:07 Luis
[2021-10-29] MEDS: FUROSEMIDE INJ 40 MG/4 ML VIAL 20 MG IV PUSH (16:10)
[2021-10-29 16:11] VITALS: PULSE 78
[2021-10-29 16:43] LABS: Glucose Point of Care 135 mg/dl (65-105)
[2021-10-29 20:12] VITALS: BP 119/50; PULSE 81; RESP 20; TEMP 36.2; O2SAT 95
[2021-10-29] MEDS: HEPARIN SODIUM 5,000 UNITS/ML VIAL 5000 UNITS SUB-Q (20:13)
[2021-10-29 21:55] LABS: Glucose Point of Care 154 mg/dl (65-105)
[2021-10-30] MEDS: oxyCODONE HCL (*CRX) 5 MG TAB IR PO (03:00)
[2021-10-30] MEDS: diphenhydrAMINE HCl CAP 25 MG CAPSULE PO (03:01)
[2021-10-30 03:36] VITALS: BP 109/61; PULSE 77; RESP 20; TEMP 36.3; O2SAT 96
[2021-10-30] MEDS: CENTRAL LINE FLUSH 10 ML IV PUSH ×2 (05:51→14:07)
[2021-10-30 06:19] LABS: Anion Gap 7 mmol/L (8-16); Blood Urea Nitrogen 15 mg/dL (7-17); Calcium 8.4 mg/dL (8.4-10.2); Carbon Dioxide 28 mmol/L (22-30); Chloride 98 mmol/L (98-107); Estimated CRCL calculation 70 ml/min; Estimated Glomerular Filt Rate > 60; Glucose 151 mg/dL (65-110); Potassium 3.7 mmol/L (3.4-5.0); Sodium 133 mmol/L (137-145)
[2021-10-30 06:37] LABS: Hematocrit 31.2 % (37.0-47.0); Hemoglobin 9.8 g/dL (12.0-15.0); Mean Corpuscular HGB Conc 31.4 g/dl (32-36); Mean Corpuscular Hemoglobin 26.3 pg (26-34); Mean Corpuscular Volume 83.6 fl (80-100); Mean Platelet Volume 10.7 fl (7.4-10.4); Platelet Count Result 87 k/mm3 (150-375); Red Blood Count 3.73 M/mm3 (4.2-5.4); Red Cell Distribution Width 13.7 % (11.5-14.5); White Blood Count 5.1 K/mm3 (4.5-10.0)
[2021-10-30 08:05] LABS: Glucose Point of Care 142 mg/dl (65-105)
[2021-10-30] MEDS: GABAPENTIN 300 MG CAPSULE 600 MG PO ×2 (08:18→12:00)
[2021-10-30] MEDS: PIOGLITAZONE HCL 15 MG TAB PO (08:18)
[2021-10-30] MEDS: CLOPIDOGREL BISULFATE 75 MG TABLET PO (08:18)
[2021-10-30 08:19] VITALS: PULSE 80
[2021-10-30] MEDS: DOCUSATE SODIUM LIQ 100 MG/10 ML UDC 50 MG PO (08:19)
[2021-10-30] MEDS: carvediloL 12.5 MG TABLET PO (08:19)
[2021-10-30] MEDS: OXYBUTYNIN CHLORIDE 5 MG TABLET PO ×2 (08:19→12:00)
[2021-10-30] MEDS: LOSARTAN POTASSIUM 25 MG TABLET PO (08:19)
[2021-10-30] MEDS: HEPARIN SODIUM 5,000 UNITS/ML VIAL 5000 UNITS SUB-Q (08:19)
[2021-10-30 11:48] LABS: Glucose Point of Care 216 mg/dl (65-105)
[2021-10-30] MEDS: INSULIN ASPART (*BKC) 100 UNITS/ML SUB-Q (11:57)
--- NOTE | 2021-10-30 12:06 | PM.DS ---
DS: Admitting Diagnosis Discharge Date 10/30/20 Admitting Diagnosis Leg redness DS: Discharge Diagnosis Discharge Diagnosis (1) Cellulitis: Qualifiers: Laterality: right Site of cellulitis: extremity Site of cellulitis of extremity: lower extremity Qualified Code(s): L03.115 - Cellulitis of right lower limb Code(s): L03.90 - Cellulitis, unspecified Status: Acute Assessment and Plan: Patient is a 61-year-old woman with a history of diabetes, peripheral vascular disease, left lower extremity amputation, peripheral neuropathy, and prior episodes of cellulitis in the past, who presented to the emergency room with right lower extremity redness, swelling, pain which began 2 days prior to arrival. Initial vitals showed elevated blood pressure 143/99, non tachycardic, afebrile, normal oxygenation on room air. Initial labs showed normal white count, normocytic anemia with a hemoglobin of 11.5/36.7%, chronic thrombocytopenia at 97,000. Normal creatinine 0.8, BUN 19, normal electrolytes, glucose 125 on arrival. CRP elevated at 7.5. Normal LFTs. Patient was admitted the hospital for IV antibiotics with cellulitis to right lower extremity. Patient has been started on empiric antibiotic therapy with IV Primaxin and vancomycin #7 per antibiotic stewardship guidelines. Labs are stable, erythema improving. Will discharge patient on 3 more days of oral Bactrim and Keflex for total 10 days of treatment for her cellulitis. She has been on both these medications in the past and not had any issues. Also prescribed a probiotic to prevent any diarrhea associated with antibiotic use. Blood cultures showed one bottle growth of coag-negative staph. I believe this is a contamination and the other blood culture is negative to date. Previous provider believed she needed a PICC line placed and IV antibiotics at discharge. After visualizing the cellulitis which had almost completely resolved, IV felt IV antibiotics was not necessary. I feel this was a contamination and she had 7 days of IV antibiotics and will just need a few more days oral for treatment of her cellulitis. Follow-up with primary care in 1 week. Return to ER warnings given. Patient understands and agrees the plan all questions answered. (2) Type 2 diabetes mellitus: Code(s): E11.9 - Type 2 diabetes mellitus without complications Status: Chronic Assessment and Plan: Patient continue checking her glucose at home. Follow-up PCP. (3) Right leg swelling: Code(s): M79.89 - Other specified soft tissue disorders Status: Acute Assessment and Plan: Negative for DVT. Most likely secondary to IV antibiotics and cellulitis infection. Right leg swelling felt much better after having a dose of IV Lasix 20 mg x 1. She will continue her HCTZ at discharge and continue putting on her compression stockings daily. (4) Hypertension: Code(s): I10 - Essential (primary) hypertension Status: Chronic Assessment and Plan: Blood pressure stable 109/61 this afternoon. Continue on home medications. Make adjustments if needed. DS: Summary Hospital Course Hospital Course: See above Status at Discharge Cognitive/behavioral status at discharge: Stable, improved. Time Spent with Patient Time attestation: Total time spent providing and/or coordinating discharge services: 40 Time spent: Greater than 30 minutes Exam Narrative: General: 61-year-old woman sitting in her wheelchair, looking out the window in talking on the phone. Appears comfortable. In no acute distress. Skin: No jaundice or cyanosis. Good skin turgor. Neck: Full range of motion. Supple. Respiratory: Lungs are clear to auscultation bilaterally. No bony chest wall tendern
== END 2021-10-30 15:35 | disposition home or self-care (01) | DRG 603 ==
LOC: ANHED 20:46 → ANH2MED 21:29
PROVIDERS: Internal Medicine; Physician Assistant; Admitting Provider Internal Medicine; Emergency Provider Family Medicine; PCP Physician Assistant; Visit Provider Physician Assistant
DX: L03.115 Cellulitis of right lower limb (principal); D64.9 Anemia, unspecified; D69.6 Thrombocytopenia, unspecified; E78.5 Hyperlipidemia, unspecified; E11.42 Type 2 diabetes mellitus with diabetic polyneuropathy; E11.51 Type 2 diabetes mellitus with diabetic peripheral angiopathy without gangrene; I10 Essential (primary) hypertension; K21.9 Gastro-esophageal reflux disease without esophagitis; M79.89 Other specified soft tissue disorders; Z90.49 Acquired absence of other specified parts of digestive tract; Z89.612 Acquired absence of left leg above knee; Z87.891 Personal history of nicotine dependence; Z86.73 Personal history of transient ischemic attack (TIA), and cerebral infarction without residual deficits; Z86.718 Personal history of other venous thrombosis and embolism; Z79.02 Long term (current) use of antithrombotics/antiplatelets; Z79.4 Long term (current) use of insulin; Z79.84 Long term (current) use of oral hypoglycemic drugs; Z98.41 Cataract extraction status, right eye; Z98.42 Cataract extraction status, left eye; Z96.1 Presence of intraocular lens
CPT/HCPCS: 36415; 36569; 80048; 80053; 80202; 82565; 82948; 85025; 85027; 85055; 86140; 87040; 87077; 87186; 93970; 96365; 96366; 96367; 96372; 96375; 99285; A9270; C1751; G0378; J0743; J1644; J1815; J1940; J3370

== ENCOUNTER 2022-08-05 11:03 | Outpatient (CLI) | payer MEDICARE, SELFPAY ==
--- NOTE | ~2022-08-05 | US_ITS ---
EXAMINATION: US soft tissue head and neck DATE: 08/05/2022 11:44 INDICATION: Left parotid neoplasm of uncertain behavior. TECHNIQUE: Multiple grayscale and Doppler ultrasound images of the left head and neck were obtained. COMPARISON: Ultrasound 04/22/2021, 06/04/21 FINDINGS: In the left parotid gland, there is a 4.2 x 2.4 x 2.8 cm hypoechoic mass. IMPRESSION: 1. 4.2 cm left parotid mass, increased from 2.9 cm on 06/04/2021. Fine needle aspiration on 06/04/2021 was consistent with benign cyst. Repeat ultrasound-guided fine-needle aspiration is recommended. Reviewed, dictated and finalized at location A. IMPRESSION: 1. 4.2 cm left parotid mass, increased from 2.9 cm on 06/04/2021. Fine needle as piration on 06/04/2021 was consistent with benign cyst. Repeat ultrasound-guid ed fine-needle aspiration is recommended.
== END 2022-08-05 11:04 | disposition home or self-care (01) ==
PROVIDERS: PCP Family Medicine; Visit Provider Otolaryngology
DX: D37.030 Neoplasm of uncertain behavior of the parotid salivary glands (principal)
CPT/HCPCS: 76536

== ENCOUNTER 2022-12-17 11:26 | Outpatient (CLI) | payer MEDICARE, SELFPAY ==
[2022-12-17 18:54] LABS: Alanine Aminotransferase 21 U/L (6-35); Albumin Level 3.9 g/dL (3.5-5.1); Alkaline Phosphatase 85 U/L (38-126); Anion Gap 4 mmol/L (8-16); Aspartate Amino Transferase 31 U/L (14-36); Bilirubin,Total 0.7 mg/dL (0.2-1.3); Blood Urea Nitrogen 16 mg/dL (7-17); Calcium 9.2 mg/dL (8.4-10.2); Carbon Dioxide 30 mmol/L (22-30); Chloride 108 mmol/L (98-107); Cholesterol 131 mg/dL (0-200); Estimated Glomerular Filt Rate > 60; Glucose 68 mg/dL (65-110); HDL Direct 46 mg/dL; Potassium 3.9 mmol/L (3.4-5.0); Sodium 142 mmol/L (137-145); Triglycerides 69 mg/dL (<150)
[2022-12-17 19:06] LABS: LDL Cholesterol Direct 55 mg/dL
[2022-12-17 19:10] LABS: Basophils Percent Auto 0.7 % (0.2-1.2); Eosinophils Absolute Auto 0.2 K/mm3 (0-0.3); Eosinophils Percent Auto 4.3 % (0-4.4); Hematocrit 31.6 % (37.0-47.0); Hemoglobin 9.5 g/dL (12.0-15.0); Immature Granulocyte Absolute 0.01 K/mm3 (0.00-0.031); Immature Granulocyte Percent A 0.2 % (0-0.5); Immature Platelet Fraction Pct 4.1 % (0.9-11.2); Lymphocytes Absolute Auto 0.83 K/mm3 (0.9-3.2); Lymphocytes Percent Auto 18.8 % (18.3-44.2); Mean Corpuscular HGB Conc 30.1 g/dl (32-36); Mean Corpuscular Hemoglobin 23.9 pg (26-34); Mean Corpuscular Volume 79.6 fl (80-100); Mean Platelet Volume 11.2 fl (7.4-10.4); Monocytes Absolute Auto 0.4 K/mm3 (0.1-0.6); Neutrophils Absolute Auto 2.9 K/mm3 (1.3-6.7); Platelet Count Result 86 k/mm3 (150-375); Red Blood Count 3.97 M/mm3 (4.2-5.4); Red Cell Distribution Width 16.4 % (11.5-14.5); White Blood Count 4.4 K/mm3 (4.5-10.0)
[2022-12-17 19:26] LABS: Ferritin 7.99 ng/mL (11.1-264)
[2022-12-17 19:28] LABS: Creatinine Urine 21.9 mg/dL
[2022-12-17 20:06] LABS: Platelet Estimate Decreased (Adequate); Schistocytes None Seen (NORMAL)
[2022-12-17 20:07] LABS: Anisocytosis 2+ (NORMAL); Hypochromasia 1+ (NORMAL)
[2022-12-17 20:08] LABS: Ovalocytes 1+ (NORMAL)
[2022-12-17 20:08] LABS: Microalbumin Urine Random < 6.0 mg/L (0-16.7)
== END 2022-12-17 11:27 | disposition home or self-care (01) ==
LOC: ANHGOSHLAB 11:28
PROVIDERS: PCP Family Medicine; Visit Provider Family Medicine
DX: D64.9 Anemia, unspecified (principal); E11.40 Type 2 diabetes mellitus with diabetic neuropathy, unspecified
CPT/HCPCS: 36415; 80053; 80061; 82043; 82728; 85025; 85055

== ENCOUNTER → 2022-12-17 11:46 | Outpatient (CLI) | payer MEDICARE, SELFPAY ==
--- NOTE | ~2022-12-17 | XR_ITS ---
XR knee RT min 4V 12/17/2022 12:05 Indication: Right knee pain Procedure: 4 views right knee Comparison: 08/10/2020 Findings: There is mild-moderate osteoarthritis of the right knee, most advanced in the medial compar tment. No significant joint effusion. There are vascular calcifications. Impression: 1: Mild-moderate tricompartment osteoarthritis of the right knee. Reviewed, dictated and finalized at location B. SOTING ENGINEER Impression: 1: Mild-moderate tricompartment osteoarthritis of the right knee.
== END ==
PROVIDERS: PCP Family Medicine; Visit Provider Family Medicine
DX: M25.562 Pain in left knee (principal); M17.11 Unilateral primary osteoarthritis, right knee
CPT/HCPCS: 73564

== ENCOUNTER 2023-02-20 11:11 | Outpatient (CLI) | payer MEDICARE, SELFPAY ==
[2023-02-20 11:31] LABS: Basophils Percent Auto 0.8 % (0.2-1.2); Eosinophils Absolute Auto 0.1 K/mm3 (0-0.3); Eosinophils Percent Auto 3.6 % (0-4.4); Hematocrit 30.3 % (37.0-47.0); Hemoglobin 9.2 g/dL (12.0-15.0); Immature Granulocyte Absolute 0.01 K/mm3 (0.00-0.031); Immature Granulocyte Percent A 0.3 % (0-0.5); Lymphocytes Absolute Auto 0.73 K/mm3 (0.9-3.2); Lymphocytes Percent Auto 18.6 % (18.3-44.2); Mean Corpuscular HGB Conc 30.4 g/dl (32-36); Mean Corpuscular Hemoglobin 23.8 pg (26-34); Mean Corpuscular Volume 78.5 fl (80-100); Mean Platelet Volume 9.4 fl (7.4-10.4); Monocytes Absolute Auto 0.4 K/mm3 (0.1-0.6); Monocytes Percent Auto 9.9 % (2.6-8.5); Neutrophils Absolute Auto 2.6 K/mm3 (1.3-6.7); Neutrophils Percent Auto 66.8 % (45.5-73.1); Platelet Count Result 60 k/mm3 (150-375); Red Blood Count 3.86 M/mm3 (4.2-5.4); Red Cell Distribution Width 17.7 % (11.5-14.5); White Blood Count 3.9 K/mm3 (4.5-10.0)
[2023-02-20 12:43] LABS: Alanine Aminotransferase 20 U/L (6-35); Alkaline Phosphatase 73 U/L (38-126); Anion Gap 4 mmol/L (8-16); Aspartate Amino Transferase 29 U/L (14-36); Bilirubin,Total 0.6 mg/dL (0.2-1.3); Blood Urea Nitrogen 26 mg/dL (7-17); Carbon Dioxide 32 mmol/L (22-30); Chloride 105 mmol/L (98-107); Estimated Glomerular Filt Rate > 60; Glucose 95 mg/dL (65-110); Sodium 141 mmol/L (137-145)
[2023-02-20 13:53] LABS: Folic Acid > 20.0 ng/mL (2.76->20)
[2023-02-20 15:17] LABS: Iron 29 ug/dL (37-170)
[2023-02-20 15:26] LABS: Percent Iron Saturation 6 % (20-50)
[2023-02-20 15:53] LABS: Ferritin 7.93 ng/mL (11.1-264)
[2023-02-25 09:35] LABS: Methylmalonic Acid 312 nmol/L (87-318)
== END 2023-02-20 11:12 | disposition home or self-care (01) ==
LOC: ANHLAB 11:13
PROVIDERS: PCP Family Medicine; Visit Provider Internal Medicine Hematology & Oncology
DX: D64.9 Anemia, unspecified (principal); D69.59 Other secondary thrombocytopenia
CPT/HCPCS: 36415; 80053; 82607; 82728; 82746; 83540; 83550; 83921; 85025; 86023

== ENCOUNTER 2023-03-02 08:31 | Outpatient (CLI) | payer MEDICARE, SELFPAY ==
--- NOTE | ~2023-03-02 | US_ITS ---
US abdomen complete EXAMINATION: US Abdomen Complete INDICATION: Thrombocytopenia. PROCEDURE: Realtime High Resolution abdomen ultrasound. COMPARISON: No prior studies for comparison FINDINGS: Gallbladder is surgically absent. Common bile duct measures 4.7 mm. Liver echotexture is increased, consistent with fatty infiltration. Liver surface appears nodular, co nsistent with cirrhosis. No focal hepatic masses.. Pancreas within normal limits. Pancreatic tail i s obscured by bowel gas. Spleen is enlarged measuring 14.1 cm. Renal echotexture is within normal li mits bilaterally without hydronephrosis, contour deforming mass or renal stone. Right kidney measures 10.2 cm. Left kidney measures 10.3 cm. Visualized aspects of the aorta and IVC are within normal limits. Portal vein is patent. No sonograph ic Arriaga's sign indicated by the technologist. IMPRESSION: 1: Nodular liver surface, consistent with cirrhosis. Hepatic steatosis. 2: Splenomegaly. Reviewed, dictated and finalized at location B.
== END 2023-03-02 08:32 | disposition home or self-care (01) ==
PROVIDERS: PCP Family Medicine; Visit Provider Internal Medicine Hematology & Oncology
DX: D69.59 Other secondary thrombocytopenia (principal); R16.1 Splenomegaly, not elsewhere classified; K76.0 Fatty (change of) liver, not elsewhere classified; K76.9 Liver disease, unspecified
CPT/HCPCS: 76700

== ENCOUNTER 2023-03-26 10:16 | Outpatient (CLI) | payer MEDICARE, SELFPAY ==
[2023-03-26 10:34] LABS: Hematocrit 30.9 % (37.0-47.0); Hemoglobin 9.5 g/dL (12.0-15.0); Mean Corpuscular HGB Conc 30.7 g/dl (32-36); Mean Corpuscular Hemoglobin 24.5 pg (26-34); Mean Corpuscular Volume 79.6 fl (80-100); Mean Platelet Volume 10.4 fl (7.4-10.4); Platelet Count Result 69 k/mm3 (150-375); Red Blood Count 3.88 M/mm3 (4.2-5.4); Red Cell Distribution Width 18.4 % (11.5-14.5); White Blood Count 3.7 K/mm3 (4.5-10.0)
[2023-03-26 12:27] LABS: Iron 63 ug/dL (37-170)
[2023-03-26 12:37] LABS: Percent Iron Saturation 14 % (20-50)
== END 2023-03-26 10:17 | disposition home or self-care (01) ==
PROVIDERS: PCP Family Medicine; Visit Provider Internal Medicine Hematology & Oncology
DX: D64.9 Anemia, unspecified (principal)
CPT/HCPCS: 36415; 82728; 83540; 83550; 85027

== ENCOUNTER 2023-04-22 09:34 | Outpatient (CLI) | payer MEDICARE, SELFPAY ==
[2023-04-22 18:46] LABS: Alanine Aminotransferase 19 U/L (6-35); Albumin Level 3.9 g/dL (3.5-5.1); Alkaline Phosphatase 80 U/L (38-126); Anion Gap 5 mmol/L (8-16); Aspartate Amino Transferase 34 U/L (14-36); Bilirubin,Total 0.6 mg/dL (0.2-1.3); Blood Urea Nitrogen 18 mg/dL (7-17); Calcium 9.2 mg/dL (8.4-10.2); Carbon Dioxide 31 mmol/L (22-30); Chloride 106 mmol/L (98-107); Cholesterol 109 mg/dL (0-200); Estimated Glomerular Filt Rate > 60; Glucose 81 mg/dL (65-110); HDL Direct 45 mg/dL; Potassium 3.6 mmol/L (3.4-5.0); Sodium 142 mmol/L (137-145); Triglycerides 62 mg/dL (<150)
[2023-04-22 18:57] LABS: LDL Cholesterol Direct 47 mg/dL
[2023-04-22 19:16] LABS: Hemoglobin A1C 4.9 % (<5.7)
[2023-04-22 19:19] LABS: Thyroid Stimulating Hormone 0.698 uIU/mL (0.465-4.680)
[2023-04-23 11:30] LABS: Hepatitis C Virus Antibody Negative (Negative)
== END 2023-04-22 09:35 | disposition home or self-care (01) ==
LOC: ANHGOSHLAB 09:36
PROVIDERS: PCP Family Medicine; Visit Provider Physician Assistant
DX: E11.40 Type 2 diabetes mellitus with diabetic neuropathy, unspecified (principal)
CPT/HCPCS: 36415; 80053; 80061; 83036; 84443; 86803

== ENCOUNTER 2023-08-20 10:45 | Outpatient (CLI) | payer MEDICARE, SELFPAY ==
[2023-08-20 20:02] LABS: Alanine Aminotransferase 21 U/L (6-35); Albumin Level 4.2 g/dL (3.5-5.1); Alkaline Phosphatase 84 U/L (38-126); Anion Gap 7 mmol/L (8-16); Aspartate Amino Transferase 35 U/L (14-36); Bilirubin,Total 1.1 mg/dL (0.2-1.3); Blood Urea Nitrogen 14 mg/dL (7-17); Calcium 9.4 mg/dL (8.4-10.2); Carbon Dioxide 29 mmol/L (22-30); Chloride 103 mmol/L (98-107); Cholesterol 143 mg/dL (0-200); Estimated Glomerular Filt Rate > 60; Glucose 112 mg/dL (65-110); HDL Direct 46 mg/dL; Potassium 3.8 mmol/L (3.4-5.0); Sodium 139 mmol/L (137-145); Triglycerides 65 mg/dL (<150)
[2023-08-20 20:14] LABS: LDL Cholesterol Direct 69 mg/dL
[2023-08-20 20:24] LABS: Vitamin D 25 Hydroxy 71.2 ng/mL
[2023-08-20 20:55] LABS: Hepatitis C Virus Antibody Negative (Negative)
[2023-08-20 21:07] LABS: Creatinine Urine 58.9 mg/dL
[2023-08-20 21:12] LABS: MALB Creatinine Ratio 18.2 mg/g (0-30); Microalbumin Urine Random 10.7 mg/L (0-16.7)
[2023-08-20 21:40] LABS: Hemoglobin A1C 5.2 % (<5.7)
== END 2023-08-20 10:46 | disposition home or self-care (01) ==
LOC: ANHGOSHLAB 10:46
PROVIDERS: Nurse Practitioner Family; PCP Family Medicine; Visit Provider Family Medicine
DX: E11.40 Type 2 diabetes mellitus with diabetic neuropathy, unspecified (principal); M81.0 Age-related osteoporosis without current pathological fracture; Z78.0 Asymptomatic menopausal state; Z11.59 Encounter for screening for other viral diseases
CPT/HCPCS: 36415; 80053; 80061; 82043; 82306; 83036; 86803

== ENCOUNTER 2023-09-08 09:25 | Outpatient (CLI) | payer MEDICARE, SELFPAY ==
[2023-09-08 09:53] LABS: Basophils Percent Auto 0.8 % (0.2-1.2); Eosinophils Absolute Auto 0.2 K/mm3 (0-0.3); Eosinophils Percent Auto 4.5 % (0-4.4); Hematocrit 38.8 % (37.0-47.0); Hemoglobin 12.6 g/dL (12.0-15.0); Immature Granulocyte Absolute 0.02 K/mm3 (0.00-0.031); Immature Granulocyte Percent A 0.5 % (0-0.5); Lymphocytes Absolute Auto 0.64 K/mm3 (0.9-3.2); Mean Corpuscular HGB Conc 32.5 g/dl (32-36); Mean Corpuscular Hemoglobin 30.7 pg (26-34); Mean Corpuscular Volume 94.6 fl (80-100); Mean Platelet Volume 9.9 fl (7.4-10.4); Monocytes Absolute Auto 0.4 K/mm3 (0.1-0.6); Monocytes Percent Auto 8.8 % (2.6-8.5); Neutrophils Absolute Auto 2.8 K/mm3 (1.3-6.7); Neutrophils Percent Auto 69.4 % (45.5-73.1); Platelet Count Result 62 k/mm3 (150-375); Red Cell Distribution Width 14.4 % (11.5-14.5)
[2023-09-08 11:13] LABS: Iron 107 ug/dL (37-170)
[2023-09-08 11:21] LABS: Alanine Aminotransferase 21 U/L (6-35); Albumin Level 4.1 g/dL (3.5-5.1); Alkaline Phosphatase 85 U/L (38-126); Anion Gap 9 mmol/L (8-16); Aspartate Amino Transferase 31 U/L (14-36); Bilirubin,Total 0.8 mg/dL (0.2-1.3); Blood Urea Nitrogen 19 mg/dL (7-17); Calcium 9.1 mg/dL (8.4-10.2); Carbon Dioxide 28 mmol/L (22-30); Chloride 104 mmol/L (98-107); Estimated Glomerular Filt Rate > 60; Glucose 124 mg/dL (65-110); Sodium 141 mmol/L (137-145)
[2023-09-08 11:23] LABS: Percent Iron Saturation 28 % (20-50)
[2023-09-08 11:44] LABS: Hepatitis B Surface Antigen Negative (Negative)
[2023-09-08 11:49] LABS: HAV RESULT Negative (Negative); Hepatitis B Core IgM Result Negative (Negative)
[2023-09-08 12:01] LABS: Hepatitis C Virus Antibody Negative (Negative)
[2023-09-11 20:18] LABS: Ceruloplasmin 29 mg/dL (18-53)
[2023-09-13 14:07] LABS: Alpha Fetoprotein Tumor Marker 1.7 ng/mL (<6.1)
[2023-09-13 15:41] LABS: Mitochondrial (M2) Ab (IgG) <=20.0 U (<=20.0)
== END 2023-09-08 09:26 | disposition home or self-care (01) ==
LOC: ANHLAB 09:28
PROVIDERS: Internal Medicine Gastroenterology; PCP Family Medicine; Visit Provider Internal Medicine Hematology & Oncology
DX: D64.9 Anemia, unspecified (principal); K74.60 Unspecified cirrhosis of liver
CPT/HCPCS: 36415; 80053; 80074; 82105; 82390; 82728; 83520; 83540; 83550; 85025

== ENCOUNTER 2024-04-06 09:54 | Outpatient (CLI) | payer MEDICARE, SELFPAY ==
[2024-04-06 19:14] LABS: Basophils Percent Auto 0.7 % (0.2-1.2); Eosinophils Absolute Auto 0.2 K/mm3 (0-0.3); Eosinophils Percent Auto 4.4 % (0-4.4); Hematocrit 39.5 % (37.0-47.0); Hemoglobin 12.5 g/dL (12.0-15.0); Immature Granulocyte Absolute 0.02 K/mm3 (0.00-0.031); Immature Granulocyte Percent A 0.4 % (0-0.5); Immature Platelet Fraction Pct 3.4 % (0.9-11.2); Lymphocytes Absolute Auto 0.62 K/mm3 (0.9-3.2); Lymphocytes Percent Auto 13.6 % (18.3-44.2); Mean Corpuscular HGB Conc 31.6 g/dl (32-36); Mean Corpuscular Hemoglobin 30.7 pg (26-34); Mean Corpuscular Volume 97.1 fl (80-100); Mean Platelet Volume 10.5 fl (7.4-10.4); Monocytes Absolute Auto 0.4 K/mm3 (0.1-0.6); Monocytes Percent Auto 7.9 % (2.6-8.5); Neutrophils Absolute Auto 3.3 K/mm3 (1.3-6.7); Platelet Count Result 71 k/mm3 (150-375); Red Blood Count 4.07 M/mm3 (4.2-5.4); Red Cell Distribution Width 14.3 % (11.5-14.5); White Blood Count 4.6 K/mm3 (4.5-10.0)
[2024-04-06 19:47] LABS: Creatinine Urine 51.1 mg/dL
[2024-04-06 19:51] LABS: MALB Creatinine Ratio 13.5 mg/g (0-30); Microalbumin Urine Random 6.9 mg/L (0-16.7)
[2024-04-06 19:53] LABS: Thyroid Stimulating Hormone Reflex 0.909 uIU/mL (0.465-4.68)
[2024-04-06 20:04] LABS: LDL Cholesterol Direct 59 mg/dL
[2024-04-06 20:08] LABS: Alanine Aminotransferase 17 U/L (6-35); Albumin Level 4.1 g/dL (3.5-5.1); Alkaline Phosphatase 83 U/L (38-126); Anion Gap 7 mmol/L (4-12); Aspartate Amino Transferase 41 U/L (14-36); Bilirubin,Total 0.9 mg/dL (0.2-1.3); Blood Urea Nitrogen 22 mg/dL (7-17); Calcium 9.3 mg/dL (8.4-10.2); Carbon Dioxide 29 mmol/L (22-30); Chloride 107 mmol/L (98-107); Cholesterol 123 mg/dL (0-200); Estimated Glomerular Filt Rate > 60; Glucose 40 mg/dL (65-110); HDL Direct 44 mg/dL; Potassium 4.1 mmol/L (3.4-5.0); Sodium 143 mmol/L (137-145); Triglycerides 86 mg/dL (<150)
[2024-04-06 20:44] LABS: Hemoglobin A1C 4.6 % (<5.7)
[2024-04-10 14:34] LABS: Vitamin D 1,25 (OH)2 Total 17 pg/mL (18-72); Vitamin D2 1,25 (OH)2 9 pg/mL; Vitamin D3 1,25 (OH)2 8 pg/mL
== END 2024-04-06 09:55 | disposition home or self-care (01) ==
PROVIDERS: PCP Family Medicine; Visit Provider Family Medicine
DX: D69.6 Thrombocytopenia, unspecified (principal); E11.40 Type 2 diabetes mellitus with diabetic neuropathy, unspecified; I10 Essential (primary) hypertension; I73.9 Peripheral vascular disease, unspecified; Z79.899 Other long term (current) drug therapy; Z86.718 Personal history of other venous thrombosis and embolism; Z89.619 Acquired absence of unspecified leg above knee; E55.9 Vitamin D deficiency, unspecified; D64.9 Anemia, unspecified
CPT/HCPCS: 36415; 80053; 80061; 82043; 82652; 83036; 84443; 85025; 85055

== ENCOUNTER 2024-09-30 18:35 | Emergency (ER) | payer MEDICARE, SELFPAY ==
--- NOTE | ~2024-09-30 | CT_ITS ---
CT facial & cervical spine wo Ordering provider: Zina Zelaya History: . fall . Comparison: None. Technique: Thin slice axial CT of the facial bones was performed without contrast. Coronal and sagit juan reformatted images were also obtained. . Automated exposure control and iterative reconstruction technique were employed. The dose-length product was 516.15 mGy-cm. FINDINGS: PARANASAL SINUSES: Well aerated. Left maxillary sinus disease. BONES: No facial fracture including no nasal bone fracture. Motion artifact is seen in the area of the body of the right mandible. ORBITS AND SUPERFICIAL SOFT TISSUES: The optic globes and orbits are normal. The superficial soft tis sues are normal. . Left parotid gland mass. VISUALIZED MASTOIDS: Well aerated. LIMITED VISUALIZED BRAIN PARENCHYMA: Normal. IMPRESSION: No facial fracture. Left parotid gland mass. CT facial & cervical spine wo Ordering provider: Zina Zelaya History: . fall . Comparison: None. Technique: CT of the cervical spine was performed without contrast. Sagittal and coronal reformatted images were also obtained and reviewed. Automated exposure control and iterative reconstruction brice hnique were employed. The dose-length product was 516.15 mGy-cm. FINDINGS: VERTEBRAE: No subluxation or acute fracture. The occipital condyles are intact. DISC SPACES: Narrowing of the C7-T1 disc space. Multilevel facet joint disease. Multilevel uncoverteb ral joint osteoarthritic changes. Narrowing of the right foramen at the level of C5-C6. PARASPINOUS SOFT TISSUES: Normal. IMPRESSION: No acute osseous abnormality cervical spine. Reviewed, dictated and finalized at location A. [employer] IMPRESSION: No facial fracture. Left parotid gland mass. CT facial & cervical spine wo Ordering provider: Zina Zelaya History: . fall . Comparison: None. Technique: CT of the cervical spine was performed without contrast. Sagittal a nd coronal reformatted images were also obtained and reviewed. Automated expos ure control and iterative reconstruction technique were employed. The dose-rl th product was 516.15 mGy-cm. FINDINGS: VERTEBRAE: No subluxation or acute fracture. The occipital condyles are intact. DISC SPACES: Narrowing of the C7-T1 disc space. Multilevel facet joint disease. Multilevel uncovertebral joint osteoarthritic changes. Narrowing of the right foramen at the level of C5-C6. PARASPINOUS SOFT TISSUES: Normal.
--- NOTE | ~2024-09-30 | CT_ITS ---
CT brain wo con Ordering provider: Zina Zelaya MD History: 64 years Female with . fall, on Plavix . Comparison: None. Technique: CT of the head without contrast. Radiation reduction technique utilized. The dose-length p roduct was 681 mGy-cm. FINDINGS: BRAIN PARENCHYMA AND CSF SPACES: No midline shift, mass effect or hemorrhage. The brain parenchyma a nd CSF spaces are otherwise normal. VISUALIZED PARANASAL SINUSES: Well aerated. MASTOIDS: Well aerated. BONES: The bones appear intact. SOFT TISSUES: Visualized nasopharynx is normal. Superficial soft tissues are normal. Cystic changes are seen in the left parotid the gland. Mixed parotid gland tumor is not excluded. Fur ther evaluation advised. IMPRESSION: No acute intracranial findings. Mass in the left parotid the gland. Further evaluation advised. Reviewed, dictated and finalized at location A. [place] [employer]
[2024-09-30 18:38] VITALS: BP 149/77; PULSE 80; RESP 20; TEMP 36.4; O2SAT 98
--- NOTE | 2024-09-30 23:39 | ED.GENADULT ---
HPI - General Adult General Chief complaint: Fall Stated complaint: fall Time Seen by Provider: 09/30/24 23:26 Source: patient Mode of arrival: ambulatory Limitations: no limitations History of Present Illness HPI narrative: this is a 64-year-old female who presents to the ED for chief complaint of a fall. Patient states she tripped over a baby gate and fell striking her face on the hardwood floor. Denies LOC. She does take Plavix but no Anticoagulant. Reports swelling to the nose and laceration to the lip. Denies any further injury. Denies numbness, weakness reports tetanus status is up-to-date Related Data Home Medications Medication Instructions Recorded Confirmed diclofenac sodium 1 % topical gel 1 ea topical DAILY PRN Pain 12/19/20 08/26/24 calcium carbonate (Calcium 600) 600 mg PO BID 12/17/22 08/26/24 docusate sodium 100 mg capsule 100 mg PO BID 08/20/23 08/26/24 (Colace) ferrous sulfate 325 mg (65 mg 325 mg PO DAILY 08/20/23 08/26/24 iron) tablet Allergies Allergy/AdvReac Type Severity Reaction Status Date / Time latex Allergy Rash Verified 09/30/24 18:43 Penicillins AdvReac Mild Rash Verified 09/30/24 18:43 Review of Systems Review of Systems: All systems as dictated in [facility] Past Medical History Medical History (Updated 10/01/24 @ 00:18 by Jamir Meade PA-C) Cellulitis Chronic anemia Cyst of left parotid gland Depression Facial abscess Gastroesophageal reflux disease History of cerebrovascular accident History of DVT of lower extremity Hyperlipidemia Hypertension Irritable bowel syndrome Opioid use Osteomyelitis Parotitis Peripheral neuropathy Peripheral vascular disease Right leg swelling Seasonal allergies Thrombocytopenia Urge urinary incontinence Urinary tract infection Surgical History Surgical History (Updated 08/26/24 @ 11:26 by Rob Vargas MA) History of cholecystectomy History of left above knee amputation (~06/2013) 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 History of vascular surgery Left lower extremity stent. History of vein stripping Status post laser cataract surgery of left eye Family History Family History Mother Cerebrovascular accident Diabetes mellitus Hypertension Father Diabetes mellitus Heart disease Hypertension Social History Social History Social History: Surrogate decision maker: Rina Parrish, daughter. Code status: Full code. She uses a scooter at home and has a transport wheelchair for tight spaces. She has difficulty ambulating with prosthetic and prefers not to use it. Smoking packs per day: 0.5 Smoking cigarettes per day: 10.0 Years smoked: 30 Smoking pack-years: 15.00 Smoking status: Former smoker Tobacco type: cigarettes Second hand tobacco smoke exposure: Yes Smoking end date: 10/26/06 Alcohol intake: never Substance use: never Substance use type: does not use Lack of Transportation: No Lack of Food: Never True Current Housing: I Have Housing Concerned About Future Housing: No Difficulty Paying Gas/Electric Bills: YES Difficulty Paying for Meds: No Currently Unemployed: No Education: High School Diploma/GED Difficulty w/ Childcare or Family Care: No Additional living arrangements comments: The patient lives in [place] with her . Additional occupation/education comments: Disabled. Gender identity (if verbalized by the patient): Female Spiritual care concerns: No Exam Narrative: GENERAL: Well-appearing, well-nourished, and in no acute distress. HEAD: Normocephalic, atraumatic. EYES: PERRLA and EOMI. ENT: vertically oriented 1 cm lip laceration to the right upper lip externally. It does barely cross the vermilion border, however depth of the wound is all limited to above the vermilion border. Nares clear, no rhinorrhea or epistaxis. Mucous membranes moist. Oropharynx without tonsillar hypertrophy exudate or other lesions. NECK: Supple. No adenopathy or masses. CHEST: No respiratory distress. Clear to auscultation. No wheezes rales or rhonchi HEART: Regular rate and rhythm. No murmur heard. Normal peripheral pulses. ABDOMEN: Soft, nontender, nondistended, normal active bowel sounds. MSK: Normal range of motion. No edema. SKIN: Warm, dry, no rash. NEURO: Alert and oriented x4. No focal deficits. PSYCH: Normal mood and affect. Course Vital Signs Vital signs: Vital Signs Temperature 97.6 F 09/30/24 18:38 Pulse Rate 80 09/30/24 18:38 Respiratory Rate 20 09/30/24 18:38 Blood Pressure 149/77 H 09/30/24 18:38 Pulse Oximetry 98 09/30/24 18:38 Oxygen Delivery Room Air 09/30/24 18:38 Temperature 97.6 F 09/30/24 18:38 Pulse Rate 80 09/30/24 18:38 Respiratory Rate 20 09/30/24 18:38 Blood Pressure 149/77 H 09/30/24 18:38 Pulse Oximetry 98 09/30/24 18:38 Oxygen Delivery Room Air 09/30/24 18:38 Procedures Laceration Laceration 1: Date: 10/01/24 Time: 00:17 Site: lip Side (If applicable): right Size (cm): 1 Description: linear and involves kerrie border Depth: simple, single layer Local Anesthetic: lidocaine 1% Amount of anesthesia used (mL): 2 Pre-repair: wound explored, irrigated extensively and wound margins revised ====== Skin Level ====== Skin layer closed with: prolene Size (cm): 6-0 Number of sutures: 2 Technique: simple, interrupted ====== Subcutaneous Layer ====== ====== Muscle Layer ====== ====== Tendon Layer ====== Medical Decision Making MDM Narrative Medical decision making narrative: This is a 64-year-old female who presents to the ED for chief complaint of fall with lip laceration. Vitals are normal. Exam is remarkable for the above. The lip laceration just slightly cross the vermilion border but overall does not appear to be a big risk for cosmetic defect. CT imaging of the C-spine, facial bones and brain are negative for acute findings. They did note a cystic / mass structure the left parotid gland that the patient is aware of. The laceration was closed with 6-0 Prolene after being cleansed. Short course of antibiotics prescribed due to history of diabetes for prophylaxis laceration instructions given. Pt will be discharged in stable condition. Return precautions given and supportive measures discussed. Pt is understanding and agreeable with plan for discharge and follow-up with PCP. Vital Signs Vital Signs: Vital Signs Temperature 97.6 F 09/30/24 18:38 Pulse Rate 80 09/30/24 18:38 Respiratory Rate 20 09/30/24 18:38 Blood Pressure 149/77 H 09/30/24 18:38 Pulse Oximetry 98 09/30/24 18:38 Oxygen Delivery Room Air 09/30/24 18:38 Temperature 97.6 F 09/30/24 18:38 Pulse Rate 80 09/30/24 18:38 Respiratory Rate 20 09/30/24 18:38 Blood Pressure 149/77 H 09/30/24 18:38 Pulse Oximetry 98 09/30/24 18:38 Oxygen Delivery Room Air 09/30/24 18:38 Discharge Plan Discharge Clinical Impression: Fall, Laceration of lip Patient Disposition: Home, Self-Care Condition: Stable Instructions: Antibiotic Form, Laceration (ED) Additional Instructions: Keep wound clean and dry. Do not soak, take baths, or swim until wound is completely healed. If any signs of infection such as redness, swelling, increasing pain, drainage of purulent discharge, streaks up your extremity develop, seek medical attention immediately. Followup with your primary care provider in [5-7] days for suture removal. Prescriptions: New cephalexin 500 mg capsule 500 mg PO Q8H 5 Days Qty: 15 0RF No Action diclofenac sodium 1 % gel 1 ea TOPICAL DAILY PRN (Reason: Pain) Rx Instructions: arms oxybutynin chloride 10 mg tablet extended release 24hr 10 mg PO DAILY Qty: 30 1RF calcium carbonate [Calcium 600] 600 mg calcium (1,500 mg) tablet 600 mg PO BID ferrous sulfate 325 mg (65 mg iron) tablet 325 mg PO DAILY docusate sodium [Colace] 100 mg capsule 100 mg PO BID gentamicin 0.1 % cream 1 applic topical TID Qty: 30 5RF (DME) Electric Wheelchair See Rx Instructions .Route .MEDSUPPLY Qty: 1 0RF Rx Instructions: As directed (DME) power Mobility Scooter See Rx Instructions .Route .MEDSUPPLY Qty: 1 0RF Rx Instructions: As directed gabapentin 600 mg tablet 600 mg PO BID Qty: 180 3RF tizanidine 4 mg tablet 4 mg PO HS PRN (Reason: Pain (Scale Score 4-6)) Qty: 90 1RF clopidogrel 75 mg tablet 75 mg PO DAILY Qty: 90 3RF pioglitazone 15 mg tablet 15 mg PO DAILY Qty: 90 3RF alendronate 70 mg tablet 70 mg PO WEEKLY Qty: 12 0RF losartan 50 mg tablet 50 mg PO DAILY Qty: 100 1RF carvedilol 12.5 mg tablet 12.5 mg PO BID Qty: 200 1RF pravastatin 20 mg tablet 20 mg PO DAILY Qty: 100 1RF glimepiride 2 mg tablet 2 mg PO DAILY Qty: 100 1RF Rx Instructions: administer first dose with breakfast Follow-up/Referrals: Rukhsana Oswald MD [Primary Care Provider] - Time of Disposition: 00:19
[2024-10-01] MEDS: HYDROcodone/acetaminophen (*CRX) 5-325 MG TABLET 1 TAB PO (00:35)
[2024-10-01 00:52] VITALS: BP 142/90; PULSE 69; RESP 15; O2SAT 100
== END 2024-10-01 00:52 | disposition home or self-care (01) ==
PROVIDERS: Emergency Provider Physician Assistant; PCP Family Medicine
DX: S01.511A Laceration without foreign body of lip, initial encounter (principal); W01.0XXA Fall on same level from slipping, tripping and stumbling without subsequent striking against object, initial encounter; Z79.02 Long term (current) use of antithrombotics/antiplatelets; Z86.718 Personal history of other venous thrombosis and embolism; K21.9 Gastro-esophageal reflux disease without esophagitis; E78.5 Hyperlipidemia, unspecified; I10 Essential (primary) hypertension; Z87.891 Personal history of nicotine dependence
CPT/HCPCS: 12011; 70450; 70486; 72125; 99285; A9270; J2003

== ENCOUNTER 2024-12-23 11:04 | Emergency (ER) | payer MEDICARE, SELFPAY ==
[2024-12-23 11:19] VITALS: BP 151/67; PULSE 72; RESP 14; TEMP 36.6; O2SAT 96
[2024-12-23 11:22] LABS: Glucose Point of Care 117 mg/dl (65-105)
[2024-12-23 12:01] VITALS: BP 170/77; PULSE 80; RESP 20; O2SAT 99
[2024-12-23 12:40] LABS: Basophils Percent Auto 0.5 % (0.2-1.2); Eosinophils Absolute Auto 0.1 K/mm3 (0-0.3); Eosinophils Percent Auto 1.9 % (0-4.4); Hemoglobin 12.1 g/dL (12.0-15.0); Immature Granulocyte Absolute 0.01 K/mm3 (0.00-0.031); Immature Granulocyte Percent A 0.3 % (0-0.5); Immature Platelet Fraction Pct 3.2 % (0.9-11.2); Lymphocytes Absolute Auto 0.44 K/mm3 (0.9-3.2); Lymphocytes Percent Auto 11.9 % (18.3-44.2); Mean Corpuscular HGB Conc 31.8 g/dl (32-36); Mean Corpuscular Hemoglobin 30.5 pg (26-34); Mean Corpuscular Volume 95.7 fl (80-100); Mean Platelet Volume 11.1 fl (7.4-10.4); Monocytes Absolute Auto 0.2 K/mm3 (0.1-0.6); Monocytes Percent Auto 6.5 % (2.6-8.5); Neutrophils Absolute Auto 2.9 K/mm3 (1.3-6.7); Neutrophils Percent Auto 78.9 % (45.5-73.1); Platelet Count Result 48 k/mm3 (150-375); Red Blood Count 3.97 M/mm3 (4.2-5.4); Red Cell Distribution Width 14.2 % (11.5-14.5); White Blood Count 3.7 K/mm3 (4.5-10.0)
--- NOTE | 2024-12-23 12:45 | ED.RECABL ---
HPI - Recheck/Abnormal Lab/Rx General Chief Complaint: Recheck/Abnormal Lab/Rx Stated Complaint: hypoglycemia Time Seen by Provider: 12/23/24 12:04 Source: patient and family Mode of arrival: ambulatory Limitations: other (patient does not remember incident) History of Present Illness HPI narrative: This is a 64 year old female that presents to the ER for an episode of altered mental status. Reportedly she was acting very erratic. EMS was called, her blood sugar was in the 40s. Reports she was given glucose orally as well as dextrose IV. Her blood sugar came up to the high 100s. She has returned to baseline. Does report she has had some dysuria the last couple of days for which she has been taking AZO. Denies fever, abdominal pain, flank pain, vomiting. Related Data Home Medications ?Medication ?Instructions ?Recorded ?Confirmed ?Last Taken ?Type diclofenac sodium 1 % topical gel 1 ea topical DAILY PRN Pain 12/19/20 10/07/24 Unknown History calcium carbonate (Calcium 600) 600 mg PO BID 12/17/22 10/07/24 Unknown History docusate sodium 100 mg capsule 100 mg PO BID 08/20/23 10/07/24 Unknown History (Colace) ferrous sulfate 325 mg (65 mg 325 mg PO DAILY 08/20/23 10/07/24 Unknown History iron) tablet Allergies Allergy/AdvReac Type Severity Reaction Status Date / Time latex Allergy Rash Verified 12/23/24 11:04 Penicillins AdvReac Mild Rash Verified 12/23/24 11:04 Review of Systems Review of Systems: All systems reviewed & are unremarkable except as noted in HPI and below PMFSH Past Medical History Medical History Urge urinary incontinence Cellulitis Right leg swelling History of cerebrovascular accident Thrombocytopenia Chronic anemia Cyst of left parotid gland Parotitis History of DVT of lower extremity Hyperlipidemia Gastroesophageal reflux disease Irritable bowel syndrome Facial abscess Osteomyelitis Opioid use Depression Urinary tract infection Hypertension Peripheral vascular disease Peripheral neuropathy Seasonal allergies Surgical History Surgical History Status post laser cataract surgery of left eye History of left above knee amputation (~06/2013) 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 History of vascular surgery Left lower extremity stent. History of vein stripping History of cholecystectomy Family History Family History Mother Cerebrovascular accident Diabetes mellitus Hypertension Father Diabetes mellitus Heart disease Hypertension Social History Social History Social History: Surrogate decision maker: Rina Parrish, augie. Code status: Full code. She uses a scooter at home and has a transport wheelchair for tight spaces. She has difficulty ambulating with prosthetic and prefers not to use it. Smoking packs per day: 0.5 Smoking cigarettes per day: 10.0 Years smoked: 30 Smoking pack-years: 15.00 Smoking status: Former smoker Tobacco type: cigarettes Second hand tobacco smoke exposure: Yes Smoking end date: 10/26/06 Alcohol intake: never Substance use: never Substance use type: does not use Lack of Transportation: No Lack of Food: Never True Current Housing: I Have Housing Concerned About Future Housing: No Difficulty Paying Gas/Electric Bills: YES Difficulty Paying for Meds: No Currently Unemployed: No Education: High School Diploma/GED Difficulty w/ Childcare or Family Care: No Additional living arrangements comments: The patient lives in [place] with her . Additional occupation/education comments: Disabled. Gender identity (if verbalized by the patient): Female Spiritual care concerns: No Exam Narrative: GENERAL: Well-appearing, well-nourished, and in no acute distress. HEAD: Normocephalic, atraumatic. EYES: PERRLA and EOMI. ENT: Nares clear, no rhinorrhea or epistaxis. Mucous membranes moist. Oropharynx without tonsillar hypertrophy exudate or other lesions. NECK: Supple. No adenopathy or masses. CHEST: Clear to auscultation. No respiratory distress. No wheezes rales or rhonchi HEART: Regular rate and rhythm. No murmur heard. Normal peripheral pulses. ABDOMEN: Soft, nontender, nondistended, normal active bowel sounds. No CVA tenderness EXTREMITIES: Normal range of motion. No edema. SKIN: Warm, dry, no rash. NEURO: No focal deficits. Alert and oriented x3. PSYCH: Normal mood and affect Course Course Emergency Course: Patient updated on her workup and recommendation for admission. She does not wish to stay in the hospital at this time Vital Signs Vital signs: Vital Signs Temperature 97.8 F 12/23/24 11:19 Pulse Rate 72 12/23/24 11:19 Respiratory Rate 14 12/23/24 11:19 Blood Pressure 151/67 H 12/23/24 11:19 Pulse Oximetry 96 12/23/24 11:19 Oxygen Delivery Room Air 12/23/24 11:19 Temperature 97.8 F 12/23/24 11:19 Pulse Rate 78 12/23/24 16:47 Respiratory Rate 18 12/23/24 16:47 Blood Pressure 176/66 H 12/23/24 16:47 Pulse Oximetry 98 12/23/24 16:47 Oxygen Delivery Room Air 12/23/24 12:01 MDM - Recheck/Abnormal Lab/Rx MDM Narrative Medical decision making narrative: Patient presents to the ER for hypoglycemic episode. History of DM. Reports she takes glimepiride and pioglitazone. blood sugar was 40s upon arrival of EMS. She was given oral glucose as well as dextrose IV. she is alert and oriented and back at her baseline. Endorsing some urinary symptoms. Cbc without leukocytosis. Metabolic panel with normal kidney function. Urine with evidence of infection. Patient given dose of antibiotics IV in the ER. Her blood sugar is in the 100s. She did eat in the ER. Patient updated on her workup and recommendation for admission. She does not wish to stay in the hospital at this time. Will be continued on oral antibiotics. She was instructed to continue to monitor her blood sugar closely and have follow-up with her primary provider. Lab Data Attestation: I reviewed the patient's lab results. 12/23/24 12:30 12/23/24 12:30 Labs: Lab Results 12/23/24 12/23/24 12/23/24 Range/Units 11:20 12:30 13:28 WBC 3.7 L (4.5-10.0) K/mm3 RBC 3.97 L (4.2-5.4) M/mm3 Hgb 12.1 (12.0-15.0) g/dL Hct 38.0 (37.0-47.0) % MCV 95.7 (80-100) fl MCH 30.5 (26-34) pg MCHC 31.8 L (32-36) g/dl RDW 14.2 (11.5-14.5) % Plt Count 48 L (150-375) k/mm3 MPV 11.1 H (7.4-10.4) fl Immature Gran % (Auto) 0.3 (0-0.5) % Neut % (Auto) 78.9 H (45.5-73.1) % Lymph % (Auto) 11.9 L (18.3-44.2) % [place] % (Auto) 6.5 (2.6-8.5) % Eos % (Auto) 1.9 (0-4.4) % Baso % (Auto) 0.5 (0.2-1.2) % Lymph # (Auto) 0.44 L (0.9-3.2) K/mm3 [place] # (Auto) 0.2 (0.1-0.6) K/mm3 Eos # (Auto) 0.1 (0-0.3) K/mm3 Baso # (Auto) 0.0 (0.0-0.1) K/mm3 Abs Immat Gran (auto) 0.01 (0.00-0.031) K/mm3 Absolute Neuts (auto) 2.9 (1.3-6.7) K/mm3 Absolute Nucleated RBC 0.000 (0.0-0.012) K/mm3 Nucleated RBC % 0.0 (0.0-0.2) % % Immature Plt Fraction 3.2 (0.9-11.2) % Sodium 140 (137-145) mmol/L Potassium 3.8 (3.4-5.0) mmol/L Chloride 105 (98-107) mmol/L Carbon Dioxide 25 (22-30) mmol/L Anion Gap 10 (4-12) mmol/L BUN 22 H (7-17) mg/dL Creatinine 0.68 L (0.7-1.0) mg/dL Estim Creat Clear Calc 90 ml/min Estimated GFR > 60 (59 - ) Glucose 112 H (65-110) mg/dL POC Capillary Glucose 117 H (65-105) mg/dl Calcium 8.7 (8.4-10.2) mg/dL Total Bilirubin 0.8 (0.2-1.3) mg/dL AST 33 (14-36) U/L ALT 21 (6-35) U/L Alkaline Phosphatase 111 (38-126) U/L Total Protein 7.0 (6.3-8.2) g/dL Albumin 3.7 (3.5-5.1) g/dL Lipase 40 (23-300) U/L Urine Color Yellow (Yellow) Urine Appearance Clear (Clear) Urine pH 5.5 (5.0-9.0) Ur Specific [place] 1.005 (1.001-1.035) Urine Protein Negative (Negative) mg/dL Urine Glucose (UA) Negative (Negative) mg/dL Urine Ketones Negative (Negative) mg/dL Ur Blood (Man) Negative (Negative) Urine Nitrate Negative (Negative) Urine Bilirubin Negative (Negative) Urine Urobilinogen 1.0 (<2.0) mg/dL Leukocyte Esterase Rfl 2+ H (Negative) JOVAN/UL Urine RBC 0-2 (0-2) /hpf Urine WBC 11-20 H (0-3) /hpf Ur Squamous Epith Cells Occasional (Few) /hpf Urine Bacteria 3+ H /hpf Urine Casts 0-2 12/23/24 Range/Units 16:22 WBC (4.5-10.0) K/mm3 RBC (4.2-5.4) M/mm3 Hgb (12.0-15.0) g/dL Hct (37.0-47.0) % MCV (80-100) fl MCH (26-34) pg MCHC (32-36) g/dl RDW (11.5-14.5) % Plt Count (150-375) k/mm3 MPV (7.4-10.4) fl Immature Gran % (Auto) (0-0.5) % Neut % (Auto) (45.5-73.1) % Lymph % (Auto) (18.3-44.2) % [place] % (Auto) (2.6-8.5) % Eos % (Auto) (0-4.4) % Baso % (Auto) (0.2-1.2) % Lymph # (Auto) (0.9-3.2) K/mm3 [place] # (Auto) (0.1-0.6) K/mm3 Eos # (Auto) (0-0.3) K/mm3 Baso # (Auto) (0.0-0.1) K/mm3 Abs Immat Gran (auto) (0.00-0.031) K/mm3 Absolute Neuts (auto) (1.3-6.7) K/mm3 Absolute Nucleated RBC (0.0-0.012) K/mm3 Nucleated RBC % (0.0-0.2) % % Immature Plt Fraction (0.9-11.2) % Sodium (137-145) mmol/L Potassium (3.4-5.0) mmol/L Chloride (98-107) mmol/L Carbon Dioxide (22-30) mmol/L Anion Gap (4-12) mmol/L BUN (7-17) mg/dL Creatinine (0.7-1.0) mg/dL Estim Creat Clear Calc ml/min Estimated GFR (59 - ) Glucose (65-110) mg/dL POC Capillary Glucose 116 H (65-105) mg/dl Calcium (8.4-10.2) mg/dL Total Bilirubin (0.2-1.3) mg/dL AST (14-36) U/L ALT (6-35) U/L Alkaline Phosphatase (38-126) U/L Total Protein (6.3-8.2) g/dL Albumin (3.5-5.1) g/dL Lipase (23-300) U/L Urine Color (Yellow) Urine Appearance (Clear) Urine pH (5.0-9.0) Ur Specific [place] (1.001-1.035) Urine Protein (Negative) mg/dL Urine Glucose (UA) (Negative) mg/dL Urine Ketones (Negative) mg/dL Ur Blood (Man) (Negative) Urine Nitrate (Negative) Urine Bilirubin (Negative) Urine Urobilinogen (<2.0) mg/dL Leukocyte Esterase Rfl (Negative) JOVAN/UL Urine RBC (0-2) /hpf Urine WBC (0-3) /hpf Ur Squamous Epith Cells (Few) /hpf Urine Bacteria /hpf Urine Casts Critical Care Time Critical Care Time Critical Care Time: No Discharge Plan Discharge Clinical Impression: Hypoglycemia, Acute UTI Patient Disposition: Home, Self-Care Condition: Improved Instructions: Urinary Tract Infection in Women (ED), Hypoglycemia in a Person with Diabetes (ED) Additional Instructions: Return to the ER if you experience fever, abdominal pain with nausea and vomiting, you are unable to keep down liquids or solids, blood in the urine or any other symptoms that are concerning to you continue to monitor your blood sugar at home. Take oral antibiotic as prescribed Follow up with primary care doctor Patient Language: Czech Prescriptions: New cefdinir 300 mg capsule 300 mg PO Q12H 5 Days Qty: 10 0RF No Action diclofenac sodium 1 % gel 1 ea TOPICAL DAILY PRN (Reason: Pain) Rx Instructions: arms calcium carbonate [Calcium 600] 600 mg calcium (1,500 mg) tablet 600 mg PO BID ferrous sulfate 325 mg (65 mg iron) tablet 325 mg PO DAILY docusate sodium [Colace] 100 mg capsule 100 mg PO BID (DME) Electric Wheelchair See Rx Instructions .Route .MEDSUPPLY Qty: 1 0RF Rx Instructions: As directed (DME) power Mobility Scooter See Rx Instructions .Route .MEDSUPPLY Qty: 1 0RF Rx Instructions: As directed gabapentin 600 mg tablet 600 mg PO BID Qty: 180 3RF alendronate 70 mg tablet 70 mg PO WEEKLY Qty: 12 0RF losartan 50 mg tablet 50 mg PO DAILY Qty: 100 1RF carvedilol 12.5 mg tablet 12.5 mg PO BID Qty: 200 1RF pravastatin 20 mg tablet 20 mg PO DAILY Qty: 100 1RF glimepiride 2 mg tablet 2 mg PO DAILY Qty: 100 1RF Rx Instructions: administer first dose with breakfast tizanidine 4 mg tablet 4 mg PO HS PRN (Reason: Pain (Scale Score 4-6)) Qty: 90 1RF clopidogrel 75 mg tablet 75 mg PO DAILY Qty: 90 1RF pioglitazone 15 mg tablet 15 mg PO DAILY Qty: 90 1RF gentamicin 0.1 % cream 1 applic topical TID Qty: 30 5RF oxybutynin chloride 10 mg tablet extended release 24hr 10 mg PO DAILY Qty: 30 5RF Follow-up/Referrals: Rukhsana Oswald MD [Primary Care Provider] -
[2024-12-23 12:50] LABS: Alanine Aminotransferase 21 U/L (6-35); Albumin Level 3.7 g/dL (3.5-5.1); Alkaline Phosphatase 111 U/L (38-126); Anion Gap 10 mmol/L (4-12); Aspartate Amino Transferase 33 U/L (14-36); Bilirubin,Total 0.8 mg/dL (0.2-1.3); Blood Urea Nitrogen 22 mg/dL (7-17); Calcium 8.7 mg/dL (8.4-10.2); Carbon Dioxide 25 mmol/L (22-30); Chloride 105 mmol/L (98-107); Estimated CRCL calculation 90 ml/min; Estimated Glomerular Filt Rate > 60; Glucose 112 mg/dL (65-110); Lipase 40 U/L (23-300); Potassium 3.8 mmol/L (3.4-5.0); Sodium 140 mmol/L (137-145)
[2024-12-23 13:40] LABS: Add Urine Microscopic? YES; Appearance Urine Clear (Clear); Bacteria Urine 3+ /hpf; Bilirubin Urine Negative (Negative); Blood Urine Negative (Negative); Color Urine Yellow (Yellow); Glucose Urine UA Negative (Negative); Ketones Urine Negative (Negative); Leukocyte Esterase Ur 2+ LEU/UL (Negative); Nitrate Urine Negative (Negative); Non Pathogenic Casts 0-2; Protein Urine Negative (Negative); RBC Urine 0-2 /hpf (0-2); Specific Grav Ur 1.005 (1.001-1.035); Squamous Epithelial Cell Urine Occasional /hpf (Few); pH Urine 5.5 (5.0-9.0)
[2024-12-23 16:27] LABS: Glucose Point of Care 116 mg/dl (65-105)
[2024-12-23 16:47] VITALS: BP 176/66; PULSE 78; RESP 18; O2SAT 98
== END 2024-12-23 16:50 | disposition home or self-care (01) ==
PROVIDERS: Emergency Provider Physician Assistant; PCP Family Medicine
DX: E11.649 Type 2 diabetes mellitus with hypoglycemia without coma (principal); N39.0 Urinary tract infection, site not specified; I73.9 Peripheral vascular disease, unspecified; E78.5 Hyperlipidemia, unspecified; D64.9 Anemia, unspecified; N39.41 Urge incontinence; E11.42 Type 2 diabetes mellitus with diabetic polyneuropathy; K21.9 Gastro-esophageal reflux disease without esophagitis; K58.9 Irritable bowel syndrome, unspecified; F32.A Depression, unspecified; Z87.440 Personal history of urinary (tract) infections; Z86.718 Personal history of other venous thrombosis and embolism; Z86.73 Personal history of transient ischemic attack (TIA), and cerebral infarction without residual deficits; Z87.891 Personal history of nicotine dependence; Z98.42 Cataract extraction status, left eye; Z89.612 Acquired absence of left leg above knee; Z90.49 Acquired absence of other specified parts of digestive tract; Z79.84 Long term (current) use of oral hypoglycemic drugs; Z79.02 Long term (current) use of antithrombotics/antiplatelets; Z79.899 Other long term (current) drug therapy
CPT/HCPCS: 36415; 80053; 81001; 82948; 83690; 85025; 85055; 87086; 87186; 96365; 99284; J0696

== ENCOUNTER 2025-01-21 11:26 | Outpatient (CLI) | payer MEDICARE, SELFPAY ==
--- NOTE | ~2025-01-21 | MM_ITS ---
EXAMINATION: MM screening [facility] BI w [facility] HISTORY: Screening TECHNIQUE: Craniocaudal and mediolateral oblique 3-D tomosynthesis images were obtained and synthetic 2-D images were generated. CAD analysis was submitted and interpreted. COMPARISON: 04/01/2021 and dating back to 04/03/2016 BREAST PARENCHYMAL COMPOSITION: There are scattered areas of fibroglandular density. FINDINGS: Punctate calcifications detected bilaterally, vascular in origin and benign in appearance. Punctate calcifications detected bilaterally, stable and benign in appearance, dermal in origin. Stable parenchymal pattern without suspicious microcalcifications, architectural distortion, discrete masses or significant asymmetry. IMPRESSION: 1. No mammographic evidence of malignancy. 2. Recommend routine screening mammography in one year. BI-RADS Category 2: Benign finding(s). Reviewed, dictated and finalized at location A.
== END 2025-01-21 11:27 | disposition home or self-care (01) ==
PROVIDERS: PCP Family Medicine; Visit Provider Family Medicine
DX: Z12.31 Encounter for screening mammogram for malignant neoplasm of breast (principal)
CPT/HCPCS: 77063; 77067

== ENCOUNTER 2025-04-05 09:52 | Outpatient (CLI) | payer MEDICARE, SELFPAY ==
--- OUTSIDE RECORDS SUMMARY | 2025-04-05 11:05 | XMS_ITS ---
Author Organization [facility] Address [address] [facility], [place] [address] Care Team Providers Care Quality Assurance Coach Name Role Phone Rukhsana Oswald Primary Care Provider Unavail Hu Archer DPM Unavailable [phone] Encounters Encounter Location Date Provider Diagnosis [facility] [address] [facility] [address], [place] [address] 03/15/2025 Hu Samuels DPM PLAN OF TREATMENT No Information
--- OUTSIDE RECORDS SUMMARY | 2025-04-05 11:06 | XMS_ITS ---
Author Organization [facility] Address [address] [place] [address] Care Team Providers Care Torpedo Worker Name Role Phone Darek Rukhsana Primary Care Provider Unavail able Abril JORDAN, Hu Unavailable [phone] ALLERGIES Allergen (clinical drug ingredient) Drug/Non Drug Allergy documented on EMR Reaction Allergy Type Onset Date Status Penicillin Unknown Drug Allergy Active Latex Latex Unknown Allergy Active Adhesive Unknown Allergy Active REASON FOR VISIT diabetic check MEDICATIONS Medication SIG (Take, Route, Fr equency, Duration) Notes Start Date End Date Status Pioglitazone HCl Act austyn Glimepiride Active Clopidogrel Bisulfate Active oxyBUTYnin Active Carvedilol Active Naproxen Active Gabapentin Active tiZANidine HCl Activ e Losartan Potassium A ctive Alendronate Sodium A ctive Pravastatin Sodium A ctive Calcium Active Magnesium Active Diclofenac Active Folic Acid Active Doculase Active SOCIAL HISTORY Tobacco Use: Social History Observation Description Date Details (start date - stop date) Never Smoker NA - NA Sex Assigned At : Social History Observation Description Sex Assigned At Unknown Tobacco Use: Question Answer Notes Patient is a: nonsmoker Alcohol screening: Question Answer Notes Did you have a drink containing alcohol in the p ast year? No Points 0 Interpretation Negative VITAL SIGNS Blood pressure systolic 125 mm Hg 12/25/19 24 Blood pressure diastolic 82 mm Hg 024 Height 63 in 12/25/2023 Weight 250 lbs 12/25/2023 BMI 44.28 kg/m2 12/25/2023 Encounters Encounter Location Date Provider Diagnosis [facility] [address] [place] [address] 12/25/2023 Hu Samuels DPM Type 2 diabetes mellitus with peripheral neuropathy E11.42 ; Acquired absence of left leg above knee Z89.612 and Overgrown toenails L60.2 ASSESSMENTS Encounter Date Diagnosis Assessment Notes Treatment Notes Treatment Clinical Notes 12/25/2023 Type 2 diabetes mellitus with peripheral neuropathy (ICD-10 - E11.42) Reinforced proper diabetic foot care including checking feet daily, no barefoot walking, maintain tight glycemic control, lotion to feet daily-not web spaces. Watch for signs of skin breakdown including callus formation or any type of blister wound and notify the office immediately. She can follow-up in 6 months for diabetic foot check 12/25/2023 Acquired absence of left leg above knee (ICD-10 - Z89.612) 12/25/2023 Overgrown toenails (ICD-10 - L60.2) Toenails are without incident PLAN OF TREATMENT Treatment Notes Assessment Notes Type 2 diabetes mellitus wit h peripheral neuropathy Reinforced proper diabetic foot care including checking feet daily, no barefoot walking, maintain tight glycemic control, lotion to feet daily-not web spaces. Watch for signs of skin breakdown including callus formation or any type of blister wound and notify the office immediately. She can follow-up in 6 months for diabetic foot check Overgrown toenails Toenails are without incident Progress Notes * Examination Category Sub-Category Detail [...]
--- OUTSIDE RECORDS SUMMARY | 2025-04-05 11:06 | XMS_ITS ---
Author Organization [facility] Address [address], [place] [address] Care Team Providers Care Resources Representative Name Role Phone Rukhsana Oswald Primary Care Provider Unavail Hu Archer DPM Unavailable [phone] ALLERGIES Allergen (clinical drug ingredient) Drug/Non Drug [...] Negative Encounters Encounter Location Date Provider [facility] [address] [facility] [address], [place] [address] 08/17/2024 Hu Samuels DPM Type 2 diabetes [...]
--- OUTSIDE RECORDS SUMMARY | 2025-04-05 11:06 | XMS_ITS | Patient Health Record ---
Author Organization [facility] Address [address] [address] Care Team Providers Care Emotional Disabilities Teacher Name Role Phone Rukhsana Oswald Primary Care Provider Unavail able Hu Samuels DPM Unavailable [phone] ALLERGIES Allergen (clinical drug ingredient) Drug/Non Drug Allergy documented on EMR Reaction Allergy Type Onset Date Status Penicillin Unknown Drug Allergy Active Latex Latex Unknown Allergy Active Adhesive Unknown Allergy Active REASON FOR REFERRAL No Information MEDICATIONS Medication SIG (Take, Route, Fr equency, Duration) Notes Start Date End Date Status Folic Acid Active oxyBUTYnin Active Pioglitazone HCl Act austyn Alendronate Sodium A ctive Naproxen Active Pravastatin Sodium A ctive Diclofenac Active Clopidogrel Bisulfate Active Doculase Active Carvedilol Active Losartan Potassium A ctive Gabapentin Active tiZANidine HCl Activ e Calcium Active Magnesium Active Glimepiride Active SOCIAL HISTORY Tobacco Use: Social History [...] ast year? No Points 0 Interpretation Negative PROBLEMS Problem Type ICD Code Onset Dates Problem Status W/U Status Risk SNOMED Code Notes Problem Acquired absence of left leg above knee (Z89.612) Active confirmed [id number] Encounters Encounter Location Date Provider Diagnosis [facility] [address] [address], [place] [address] 03/15/2025 Hu Samuels DPM [facility] [address] [place] [address] 08/17/2024 Hu Samuels DPM Type 2 diabetes [...] foot care if needed PLAN OF TREATMENT No Information Insurance Providers Payer Name Payer Address Payer Phone Subscriber Number Group Number Insured Name Patient Relationship to Insured Coverage Start Date Coverage End Date [facility] Medicare Advantage HMO [address] [address] [place] [address] [id number] Delmy Hull Self - patient is the insured MEDICAL (GENERAL) HISTORY Medical History History ICD Code diabetes mellitus high blood pressure neuropathy Surgical History Surgery Date(Month/Year) foot, right gallbladder
[2025-04-05 12:40] LABS: Cholesterol 131 mg/dL (0-200); HDL Direct 52 mg/dL; Triglycerides 68 mg/dL (<150)
[2025-04-05 12:52] LABS: LDL Cholesterol Direct 49 mg/dL
[2025-04-05 13:41] LABS: Hemoglobin A1C 6.8 % (<5.7)
[2025-04-05 16:29] LABS: Vitamin D 25 Hydroxy 36.2 ng/mL
== END 2025-04-05 09:53 | disposition home or self-care (01) ==
LOC: ANHGOSHLAB 09:53
PROVIDERS: PCP Family Medicine; Visit Provider Student in an Organized Health Care Education/Training Program
DX: E55.9 Vitamin D deficiency, unspecified (principal); E11.40 Type 2 diabetes mellitus with diabetic neuropathy, unspecified; E61.1 Iron deficiency
CPT/HCPCS: 36415; 80061; 82306; 82728; 83036

== ENCOUNTER 2025-04-27 09:48 | Outpatient (CLI) | payer MEDICARE, SELFPAY ==
--- OUTSIDE RECORDS SUMMARY | 2025-04-27 09:57 | XMS_ITS | Clinical Summary ---
Author Organization [facility] Address [address] [place] [address] Care Team Providers Care Compliance Consultant Name Role Phone Trina Li MD Primary Care Provider [phone] Social History Tobacco Use Types Packs/Day Years Used Date Smoking Tobacco: Never Assessed Comments Unknown Sex and Gender Information Value Date Recorded Sex Assigned at Not on file Legal Sex Female 4:55 PM CDT Gender Identity Not on file Sexual Orientation Not on file Plan of Treatment Health Maintenance Due Date Last Done Comments Colorectal Cancer Screening Colonoscopy (10 Years) 1959 Hepatitis C 1977 DTaP, Tdap and Td Vaccines ( 1 - Tdap) 1978 Mammogram Screening 1999 Pneumococcal Vaccine: 50+ Ye ars (1 of 1 - PCV) 2009 Zoster Vaccines (1 of 2) 2009 COVID-19 Vaccine ( - 2023-2 5 season) 2024 Dexa Scan (General) 2024 RSV Immunization or 60+ Years (1 - 1-dose 75+ series) 2034 Meningococcal B Vaccine Aged Out No l onger eligible based on patient's age to complete this topic Meningococcal Vaccine Aged Out No babak portillo eligible based on patient's age to complete this topic RSV Immunizations Under 20 Months Aged Out No longer eligible based on patient's age to complete this topic Care Teams Compliance Consultant Relationship Specialty Start Date End Date Trina Li MD [address] [place] [address] PCP - General 09/24/16
--- OUTSIDE RECORDS SUMMARY | 2025-04-27 09:57 | XMS_ITS | Clinical Summary ---
Author Organization [facility] Address [address] [place] [address] Care Team Providers Care Hotel And Dining Room Cashier Name Role Phone Rukhsana Oswald MD Primary Care Provider [phone] Allergies Active Allergy Reactions Criticality Noted Date Comments Latex Rash Low 02/20/2023 Penicillins Rash Low 02/20/2023 Medications alendronate (FOSAMAX) 70 mg tablet 3 Active blood sugar diagnostic Strip OneTouch Verio strips USE TO TEST BLOOD SUGAR TWICE DAILY Active blood glucose control, normal Solution OneTouch Verio Mid Control solution Active Blood-Glucose Meter OneTouch Verio System Active clopidogreL (PLAVIX) 75 mg Tablet 1 Tablet daily. Acti ve Docusate Sodium 100 mg Tablet daily. Active gabapentin (NEURONTIN) 600 mg tablet Take 600 mg by mouth 3 times daily as needed. Active glimepiride (AMARYL) 2 mg tablet 3 Active insulin lispro (HumaLOG) 100 unit/mL vial Sliding scale; when above 200 at mealtime. Active lansoprazole (PREVACID) 15 mg Capsule, Delayed Release(E.C.) lansoprazole Act austyn losartan-hydroC HLOROthiazide (HYZAAR) 50-12.5 mg tablet 1 Tablet daily. Acti ve pioglitazone (ACTOS) 15 mg tablet 1 Tablet daily. Acti ve pravastatin (PRAVACHOL) 20 mg tablet 1 Tablet daily. Acti ve tiZANidine (ZANAFLEX) 4 mg Tablet tizanidine 4 mg tablet Active oxyBUTYnin chloride (DITROPAN) 5 mg tablet Take 5 mg by mouth 3 times daily. Active folic acid (FOLVITE) 1 mg tablet Take 1 mg by mouth daily. Active calcium as carbonate (CALTRATE) 1,500 mg (600 mg elemental) Tablet Take 600 mg by mouth 2 times daily. Active Magnesium Hydroxide 400 mg (170 mg magnesium) Tablet, Chewable Take by mouth daily. Active Ozempic 0.25 mg or 0.5 mg (2 mg/3 mL) Pen Injector 1 Vial by abdominal subcutaneous route every 7 days. Active Active Problems No known active problems Family History Medical History Relation Name Comments Diabetes Brother Heart Attack Brother Hypertension Daughter Diabetes Father End Stage Renal Disease Father Hypertension Father Diabetes Mother Hypertension Mother Stroke Mother Hypertension Sister Relation Name Status Comments Brother Daughter Alive Father Mother Sister Alive Social History Tobacco Use Types Packs/Day Years Used Date Smoking Tobacco: Former Cigarettes Q uit: 2006 Smokeless Tobacco: Never Tobacco Cessation:Counseling Given: Not Answered Alcohol Use Standard Drinks/Week Comments Never 0 (1 standard drink = 0.6 oz pur e alcohol) Comments Unknown Sex and Gender Information Value Date Recorded Sex Assigned at Not on file Legal Sex Female 5:35 AM DIE ASSEMBLER Gender Identity Not on file Sexual Orientation Not on file Last Filed Vital Signs Vital Sign Reading Time Taken Comments Blood Pressure 128/77 09/10/2023 2:19 PM DIE ASSEMBLER Pulse 81 09/10/2023 2:19 PM DIE ASSEMBLER Temperature 36.6 C (97.8 F) 09/10/2023 2:19 PM DIE ASSEMBLER Respiratory Rate 18 09/10/2023 2:19 PM DIE ASSEMBLER Oxygen Saturation 99% 09/10/2023 2:19 PM DIE ASSEMBLER Inhaled Oxygen Concentration - - Weight 106.1 kg (234 lb) 09/10/2023 2:21 PM DIE ASSEMBLER Height 160 cm (5' 3) 02/20/2023 9:52 AM CDT Body Mass Index 41.45 02/20/2023 9:52 AM CDT Plan of Treatment Health Maintenance Due Date Last Done Comments DIABETES ANNUAL FOOT EXAM 1977 DIABETES ANNUAL RETINAL EXAM 1977 DIABETES MICROALBUMIN ANNUAL SCREEN 1977 LDL CHOLESTEROL ANNUAL 1977 DTAP/TDAP/TD VACCINES (1 - Tdap) 1978 BREAST CANCER SCREENING 1999 FIT-DNA Q 3 years 2004 FIT/FOBT Q 1 year 2004 Flex Sig/CT Colonography Q 5 years 2004 ZOSTER VACCINE (1 of 2) 2009 RSV VACCINE (60+ or ) (1 - Risk 60-74 years 1-dose series) 2019 DIABETES HBA1C Q 6 MONTHS 07/27/2021 01/25/2021 PNEUMOCOCCAL VACCINE 50+ YEA RS (2 of 2 - PCV) 06/24/2022 06/24/2021 INFLUENZA VACCINE (#1) 2024 , 07/19/2020, 08/23/2018, Additional history exists COVID-19 Vaccine ( - 2023-2 5 season) 2024 09/26/2021, 02/12/2021, 01/15/2021 OSTEOPOROSIS SCREENING 2024 COLORECTAL SCREENING 10/08/2028 10/08/2018 Colorectal Cancer Screening 10/08/2028 Insurance O M[employer] Care Teams Hotel And Dining Room Cashier Relationship Specialty Start Date End Date Rukhsana Oswald MD PCP - General Family Practice 01/05/23
--- OUTSIDE RECORDS SUMMARY | 2025-04-27 09:57 | XMS_ITS | Encounter Summary ---
Author Organization [facility] Address [address] [place] [address] Care Team Providers Care Channel Lip Stiffener Insoles Name Role Phone Rukhsana Oswald MD Primary Care Provider [phone] Encounter Details Date Type Department Care Team (Late st Contact Info) Description 03/31/2008 Outpatient Historical [facility] Conversion Department [address] [place] [address] [place] [address] [facility] [address] [place] [address] Social History Tobacco Use Types Packs/Day Years Used Date Smoking Tobacco: Never Assessed Comments Unknown Sex and Gender Information Value Date Recorded Sex Assigned at Not on file Legal Sex Female 5:35 AM SUPERVISOR DRYING AND SOFTENING Gender Identity Not on file Sexual Orientation Not on file documented as of this encounter Plan of Treatment Not on file documented as of this encounter Procedures Procedure Name Priority Date/Time Associated Diagnosis Comments POC GLUCOSE Routine 04/11/2008 12:11 PM CDT POC GLUCOSE Routine 04/11/2008 11:41 AM CDT POC GLUCOSE Routine 04/11/2008 11:06 AM CDT POC GLUCOSE Routine 04/11/2008 10:17 AM CDT POC GLUCOSE Routine 04/11/2008 8:03 AM CDT POC, BLOOD GASES Routine 04/11/2008 7:10 AM CDT POC , URINE Routine 04/11/2008 5:55 AM CDT POC GLUCOSE Routine 04/11/2008 5:53 AM CDT documented in this encounter Results * (ABNORMAL) POC GLUCOSE (04/11/2008 12:11 PM CDT) GLUCOSE POC 253(H) 65 - 99 mg/dL [facility] Venous blood specimen (specimen) 04/11/2008 12:11 PM CDT 04/11/2008 12:11 PM CDT Gabriel Rutledge MD POINT OF CARE TESTING Final Re sult Performing Organization Address [facility]/ZIP Co de Phone Number [facility] CLIA# [id number] [address] [place] [address] * (ABNORMAL) POC GLUCOSE (04/11/2008 11:41 AM CDT) COMMENT, GLU POC Notified [facility] GLUCOSE POC 281(H) 65 - 99 mg/dL [facility] Venous blood specimen (specimen) 04/11/2008 11:41 AM CDT 04/11/2008 11:41 AM CDT Gabriel Rutledge MD POINT OF CARE TESTING Final Re sult [facility] CLIA# [id number] [address] [place] [address] * (ABNORMAL) POC GLUCOSE (04/11/2008 11:06 AM CDT) GLUCOSE POC 309(H) 65 - 99 mg/dL [facility] COMMENT, GLU POC Notified [facility] Venous blood specimen (specimen) 04/11/2008 11:06 AM CDT 04/11/2008 11:06 AM CDT Gabriel Rutledge MD POINT OF CARE TESTING Final Re sult Performing Organization Address [facility] Co de Phone Number [facility] CLIA# [id number] [address] [place] [address] * (ABNORMAL) POC GLUCOSE (04/11/2008 10:17 AM CDT) GLUCOSE POC 317(H) 65 - 99 mg/dL [facility] Venous blood specimen (specimen) 04/11/2008 10:17 AM CDT 04/11/2008 10:17 AM CDT Gabriel Rutledge MD POINT OF CARE TESTING Final Re sult Performing Organization Address [facility] Co de Phone Number [facility] CLIA# [id number] [address] [place] [address] * (ABNORMAL) POC GLUCOSE (04/11/2008 8:03 AM CDT) GLUCOSE POC 276(H) 65 - 99 mg/dL [facility] Venous blood specimen (specimen) 04/11/2008 8:03 AM CDT 04/11/2008 8:03 AM CDT Gabriel Rutledge MD POINT OF CARE TESTING Final Re sult Performing Organization Address [facility] Co de Phone Number [facility] CLIA# [id number] [address] [place] [address] * POC RT, BLOOD GASES (04/11/2008 7:10 AM CDT) POTASSIUM POC 4.3 3.5 - 4.9 mmol/L [facility] PATIENT'S TEMPERATURE 37.0 Degree C [facility] CALICUM IONIZED, WHOLE BLOOD 4.85 4.76 - 5.16 mg/dL [facility] SODIUM POC 137 135 - 145 mmol/L [facility] COMMENT, GASES POC NOTIFIED [facility] Blood specimen (specimen) 04/11/2008 7:10 AM CDT 04/11/2008 7:10 AM CDT Gabriel Rutledge MD CHEMISTRY ORDERABLES Final Res ult Performing Organization Address [facility]/ZIP Co de Phone Number [facility] CLIA# [id number] [address] [place] [address] * POC , URINE (04/11/2008 5:55 AM CDT) , URINE POC Negative Negative [facility] Urine specimen (specimen) 04/11/2008 5:55 AM CDT 04/11/2008 5:55 AM CDT Gabriel Rutledge MD POINT OF CARE TESTING Final Re sult Performing Organization Address [facility] Co de Phone Number [facility] CLIA# [id number] [address] [place] [address] * (ABNORMAL) POC GLUCOSE (04/11/2008 5:53 AM CDT) GLUCOSE POC 248(H) 65 - 99 mg/dL [facility] Venous blood specimen (specimen) 04/11/2008 5:53 AM CDT 04/11/2008 5:53 AM CDT Gabriel Rutledge MD POINT OF CARE TESTING Final Re sult Performing Organization Address City/[facility]/ZIP Co de Phone Number [facility] CLIA# [id number] [address] [place] [address] documented in this encounter Visit Diagnoses Not on filedocumented in this encounter Care Teams Channel Lip Stiffener Insoles Relationship Specialty Start Date End Date Rukhsana Oswald MD PCP - General Family Practice 01/05/23 documented as of this encounter
[2025-04-27 12:52] LABS: Hematocrit 38.6 % (37.0-47.0); Hemoglobin 12.5 g/dL (12.0-15.0); Immature Granulocyte Percent A 0.2 % (0-0.5); Immature Platelet Fraction Pct 4.0 % (0.9-11.2); Lymphocytes Absolute Auto 0.59 K/mm3 (0.9-3.2); Mean Corpuscular HGB Conc 32.4 g/dl (32-36); Mean Corpuscular Hemoglobin 30.7 pg (26-34); Mean Corpuscular Volume 94.8 fl (80-100); Nucleated Red Blood Cells Absolute Auto 0.000 K/mm3 (0.0-0.012); Nucleated Red Blood Cells Perc 0.0 % (0.0-0.2); Platelet Count Result 57 k/mm3 (150-375); Red Blood Count 4.07 M/mm3 (4.2-5.4); White Blood Count 4.1 K/mm3 (4.5-10.0)
[2025-04-27 12:59] LABS: Alanine Aminotransferase 19 U/L (6-35); Albumin Level 3.7 g/dL (3.5-5.1); Alkaline Phosphatase 80 U/L (38-126); Anion Gap 8 mmol/L (4-12); Aspartate Amino Transferase 36 U/L (14-36); Bilirubin,Total 1.2 mg/dL (0.2-1.3); Blood Urea Nitrogen 17 mg/dL (7-17); Calcium 9.7 mg/dL (8.4-10.2); Carbon Dioxide 28 mmol/L (22-30); Chloride 103 mmol/L (98-107); Estimated Glomerular Filt Rate > 60; Glucose 128 mg/dL (65-110); Potassium 4.1 mmol/L (3.4-5.0); Sodium 139 mmol/L (137-145); Total Protein 7.5 g/dL (6.3-8.2)
[2025-04-27 13:08] LABS: Iron 122 ug/dL (37-170)
[2025-04-27 13:12] LABS: INR 1.2; Prothrombin Time 15.1 Seconds (11.1-14.7)
[2025-04-27 13:23] LABS: Percent Iron Saturation 39 % (20-50)
[2025-04-27 13:35] LABS: Immunoglobulin G 1646 mg/dL (700-1600)
[2025-04-27 13:45] LABS: Hepatitis B Surface Antigen Negative (Negative)
[2025-04-27 13:50] LABS: HAV RESULT Negative (Negative); Hepatitis B Core IgM Result Negative (Negative)
[2025-04-28 06:03] LABS: Ceruloplasmin. 24 mg/dL (14-48)
[2025-04-30 21:28] LABS: LKM 1 Antibody. <=20.0 U (<=20.0)
[2025-05-01 10:24] LABS: Alpha Fetoprotein TumorMarker. 1.7 ng/mL
[2025-05-01 10:28] LABS: Alpha Fetoprotein TumorMarker. 1.9 ng/mL
[2025-05-01 11:48] LABS: Actin Antibody (IgG). <20 U (<20)
[2025-05-01 14:29] LABS: Mitochondrial (M2) Ab (IgG). <20.0 U
[2025-05-07 22:54] LABS: ALT 10 U/L (6-29); GGT 19 U/L (3-65); Necroinflammat Act Grade A0
== END 2025-04-27 09:49 | disposition home or self-care (01) ==
PROVIDERS: Student in an Organized Health Care Education/Training Program; PCP Family Medicine; Visit Provider Nurse Practitioner
DX: K74.60 Unspecified cirrhosis of liver (principal); K76.0 Fatty (change of) liver, not elsewhere classified
CPT/HCPCS: 36415; 80053; 80074; 81596; 82104; 82105; 82390; 82784; 83520; 83540; 83550; 85025; 85055; 85610; 86038; 86039; 86364; 86376

== ENCOUNTER 2025-05-15 14:43 | Outpatient (CLI) | payer MEDICARE, SELFPAY ==
--- NOTE | ~2025-05-15 | DEXA_ITS ---
Bone Density Report Name: SHA ARANGO Age: 64 Sex: Female Ethnicity: White Date of : 1960 Indication: osteopenia; height loss; Referring Provider: LUISITO TELLEZ Study: Bone densitometry was performed. Exam Date: May 15, 2025 Accession number: [id number] Bone Density: Region BMD T-score Z-score Classification AP Spine(L1-L4) 1.216 1.5 3.3 Normal Femoral Neck (Right) 0.531 -2.9 -1.3 Osteoporosis Total Hip (Right) 0.865 -0.6 0.6 Normal World Health Organization criteria for BMD impression classify patients as: Normal (T-score at or above -1.0), Osteopenia (T-score between -1.0 and -2.5), or Osteoporosis (T-score at or below -2.5). 10-year Fracture Risk: FRAX not reported because: Some T-score for Spine Total or Hip Total or Femoral Neck at or below -2.5 Previous Exams: Region Exam Age BMD T-score BMD Change BMD Change Date g/cm2 vs Baseline vs Previous AP Spine (L1-L4) 05/15/2025 64 1.216 1.5 0.098 (8.7%)* 0.098 (8.7%)* 02/09/2021 60 1.118 0.6 Total Hip(Right) 05/15/2025 64 0.865 -0.6 0.088 (11.4%)# 0.088 (11.4%)# 02/09/2021 60 0.777 -1.4 *Denotes significance at 95% confidence level, LSC for AP Spine = 0.022 g/cm2, LSC for Total Hip = 0.027 g/cm2 # Denotes dissimilar scan types or analysis methods Clinical Information Provided by Patient: Has the following medical conditions: type II diabetes Patient maximum height was 65.5 Menopause Age: 57 No regular weight bearing exercise Drinks caffeinated beverages Onset of menses at age 15 Number of children 1 Missed period for more than 6 months in a row Impression: The patient has osteoporosis, based on the Right Femoral Neck T-score. No significant bone loss was observed. Discussion: INCREASED RISK OF FRACTURE. BONE DENSITY IS UNDESIRABLY LOW AT ONE OR MORE SKELETAL SITES, CONSISTENT WITH POSTMENOPAUSAL OSTEOPOROSIS. This patient's lowest T-score meets the World Health Organization's (WHO) criteria for osteoporosis at one or more sites (T-score -2.5 or below). In untreated patients, the risk of osteoporotic fracture increases approximately two-fold for each 1.0 SD decrease in T-score. Low bone density is not the only risk factor for fracture; also consider factors such as patient's age, frailty or poor health, risk of falling, risk of injury, previous osteoporotic fracture, family history of osteoporosis, cigarette smoking, low body weight, etc. Not everyone with low bone mineral density has osteoporosis; osteomalacia and other metabolic bone disorders should also be considered. Patients who have osteoporosis should be evaluated for specific diseases and conditions (secondary causes) that may cause or contribute to bone loss. The [place] Association of Clinical Endocrinologists (AACE) and National Osteoporosis Foundation (NOF) recommend pharmacologic intervention for all postmenopausal women whose T-score is in this range. The patient should follow a healthful lifestyle (good nutrition with adequate calcium and vitamin D, and appropriate weight-bearing exercise). Follow-Up: Consider a repeat BMD and Vertebral Fracture Assessment (VFA) exam in 2 years or sooner if medically necessary, to reassess this patient's status. Reported by: SANTOS on 05/15/2025 3:23:00 PM. Reviewed, dictated and finalized at location A.
--- OUTSIDE RECORDS SUMMARY | 2025-05-15 14:52 | XMS_ITS | Clinical Summary ---
Author Organization [facility] Address [address] [place] [address] Care Team Providers Care Lithographic General Worker Name Role Phone Rukhsana Oswald MD Primary Care Provider [phone] Allergies Active Allergy Reactions Criticality Noted Date [...] on file Legal Sex Female 5:35 AM SALT WASHER Gender Identity Not on file Sexual Orientation Not on file Last Filed Vital Signs Vital Sign Reading Time Taken Comments Blood Pressure 128/77 09/10/2023 2:19 PM SALT WASHER Pulse 81 09/10/2023 2:19 PM SALT WASHER Temperature 36.6 C (97.8 F) 09/10/2023 2:19 PM SALT WASHER Respiratory Rate 18 09/10/2023 2:19 PM SALT WASHER Oxygen Saturation 99% 09/10/2023 2:19 PM SALT WASHER Inhaled Oxygen Concentration - - Weight 106.1 kg (234 lb) 09/10/2023 2:21 PM SALT WASHER Height 160 cm (5' 3) 02/20/2023 9:52 [...] (2 of 2 - PCV) 06/24/2022 06/24/2021 COVID-19 Vaccine (4 - 2023-2 5 season) 2024 09/26/2021, 02/12/2021, 01/15/2021 OSTEOPOROSIS SCREENING 2024 INFLUENZA VACCINE (#1) 2025 , 07/19/2020, 08/23/2018, Additional history exists COLORECTAL SCREENING 10/08/2028 10/08/2018 Colorectal Cancer Screening 10/08/2028 Insurance [facility] Address: [facility] [id number] [place] [address] Care Teams Lithographic General Worker Relationship Specialty Start Date End Date Rukhsana Oswald MD PCP - General Family Practice 01/05/23
--- OUTSIDE RECORDS SUMMARY | 2025-05-15 14:52 | XMS_ITS | Clinical Summary ---
Author Organization [facility] Address [address] [place] [address] Care Team Providers Care Computer Security Specialist Name Role Phone Trina Li MD Primary Care Provider [phone] Social History Tobacco Use Types Packs/Day Years [...] age to complete this topic Care Teams Computer Security Specialist Relationship Specialty Start Date End Date Trina Li MD [address] [place] [address] PCP - General 09/24/16
--- OUTSIDE RECORDS SUMMARY | 2025-05-15 14:52 | XMS_ITS | Encounter Summary ---
Author Organization [facility] Address [address] [place] [address] Care Team Providers Care Cuff Folder Name Role Phone Rukhsana Oswald MD Primary Care Provider [phone] Encounter Details Date Type Department Care Team (Late st Contact Info) Description 03/31/2008 Outpatient Historical [facility] Conversion Department [address] [place] [address] [place] [address] [facility] [address] [place] [address] Social History Tobacco Use Types Packs/Day Years Used Date Smoking Tobacco: Never Assessed Comments Unknown Sex and Gender Information Value Date Recorded Sex Assigned at Not on file Legal Sex Female 5:35 AM COMPLAINT SUPERVISOR Gender Identity Not on file Sexual Orientation [...] GLUCOSE POC 253(H) 65 - 99 mg/dL [facility] Venous blood specimen (specimen) 04/11/2008 12:11 PM CDT 04/11/2008 12:11 PM CDT Gabriel Rutledge MD POINT OF CARE TESTING Final Re sult Performing Organization Address [facility]ZIP Co de Phone Number [facility] CLIA# [id number] [address] [place] [address] * (ABNORMAL) POC GLUCOSE (04/11/2008 11:41 AM CDT) COMMENT, GLU POC Notified [facility] GLUCOSE POC 281(H) 65 - 99 mg/dL [facility] Venous blood specimen (specimen) 04/11/2008 11:41 AM CDT 04/11/2008 11:41 AM CDT Gabriel Rutledge MD POINT OF CARE TESTING Final Re sult [facility] CLIA# [id number] [address] [place] [address] * (ABNORMAL) POC GLUCOSE (04/11/2008 11:06 AM CDT) GLUCOSE POC 309(H) 65 - 99 mg/dL [facility] COMMENT, GLU POC Notified [facility] Venous blood specimen (specimen) 04/11/2008 11:06 AM CDT 04/11/2008 11:06 AM CDT Gabriel Rutledge MD POINT OF CARE TESTING Final Re sult Performing Organization Address [facility] Co de Phone Number [facility] CLIA# [id number] [address] [place] [address] * (ABNORMAL) POC GLUCOSE (04/11/2008 10:17 AM CDT) GLUCOSE POC 317(H) 65 - 99 mg/dL [facility] Venous blood specimen (specimen) 04/11/2008 10:17 AM CDT 04/11/2008 10:17 AM CDT Gabriel Rutledge MD POINT OF CARE TESTING Final Re sult Performing Organization Address [facility] Co de Phone Number [facility] CLIA# [id number] [address] [place] [address] * (ABNORMAL) POC GLUCOSE (04/11/2008 8:03 AM CDT) GLUCOSE POC 276(H) 65 - 99 mg/dL [facility] Venous blood specimen (specimen) 04/11/2008 8:03 AM CDT 04/11/2008 8:03 AM CDT Gabriel Rutledge MD POINT OF CARE TESTING Final Re sult Performing Organization Address [facility] Co de Phone Number [facility] CLIA# [id number] [address] [place] [address] * POC RT, BLOOD GASES (04/11/2008 7:10 AM CDT) POTASSIUM POC 4.3 3.5 - 4.9 mmol/L [facility] PATIENT'S TEMPERATURE 37.0 Degree C [facility] CALICUM IONIZED, WHOLE BLOOD 4.85 4.76 - 5.16 mg/dL [facility] SODIUM POC 137 135 - 145 mmol/L [facility] COMMENT, GASES POC NOTIFIED [facility] Blood specimen (specimen) 04/11/2008 7:10 AM CDT 04/11/2008 7:10 AM CDT Gabriel Rutledge MD CHEMISTRY ORDERABLES Final Res ult Performing Organization Address [facility]ZIP Co de Phone Number [facility] CLIA# [id number] [address] [place] [address] * POC , URINE (04/11/2008 5:55 AM CDT) , URINE POC Negative Negative [facility] Urine specimen (specimen) 04/11/2008 5:55 AM CDT 04/11/2008 5:55 AM CDT Gabriel Rutledge MD POINT OF CARE TESTING Final Re sult Performing Organization Address [facility] Co de Phone Number [facility] CLIA# [id number] [address] [place] [address] * (ABNORMAL) POC GLUCOSE (04/11/2008 5:53 AM CDT) GLUCOSE POC 248(H) 65 - 99 mg/dL [facility] Venous blood specimen (specimen) 04/11/2008 5:53 AM CDT 04/11/2008 5:53 AM CDT Gabriel Rutledge MD POINT OF CARE TESTING Final Re sult Performing Organization Address City/[facility]/ZIP Co de Phone Number [facility] CLIA# [id number] [address] [place] [address] documented in this encounter Visit Diagnoses Not on filedocumented in this encounter Care Teams Cuff Folder Relationship Specialty Start Date End Date Rukhsana Oswald MD PCP - General Family Practice 01/05/23 documented as of this encounter
== END 2025-05-15 14:44 | disposition home or self-care (01) ==
LOC: ANHIMG 14:44
PROVIDERS: PCP Family Medicine; Visit Provider Student in an Organized Health Care Education/Training Program
DX: Z78.0 Asymptomatic menopausal state (principal); M81.0 Age-related osteoporosis without current pathological fracture
CPT/HCPCS: 77080

== ENCOUNTER 2025-05-26 10:21 | Outpatient (CLI) | payer MEDICARE, SELFPAY ==
--- NOTE | ~2025-05-26 | US_ITS ---
Limited Abdominal Sonogram: Real-time sonographic imaging of the right upper quadrant was performed. Clinical History: Cirrhosis Findings: The liver appears mildly nodular in contour. No mass lesion or bile duct dilatation. Main portal vein demonstrates normal direction of flow. The gallbladder is absent, compatible prior cholec ystectomy. The common bile duct measures 4 mm. The visualized pancreas, aorta, and IVC are unremarka ble. Impression: Possible cirrhotic morphology of the liver. Reviewed, dictated and finalized at location M. Impression: Possible cirrhotic morphology of the liver.
--- OUTSIDE RECORDS SUMMARY | 2025-05-26 10:25 | XMS_ITS | Encounter Summary ---
Author Organization [facility] Address [address] [place] [address] Care Team Providers Care School Patrol Name Role Phone Rukhsana Oswald MD Primary Care Provider [phone] Encounter Details Date Type Department Care Team (Late st Contact Info) Description 03/31/2008 Outpatient Historical [facility] Conversion Department [address] [place] [address] [place] [address] [facility] [address] [place] [address] Social History Tobacco Use Types Packs/Day Years Used Date Smoking Tobacco: Never Assessed Comments Unknown Sex and Gender Information Value Date Recorded Sex Assigned at Not on file 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 Gender Identity Not on file Sexual Orientation [...] GLUCOSE POC 253(H) 65 - 99 mg/dL [facility] Venous blood specimen (specimen) 04/11/2008 12:11 PM CDT 04/11/2008 12:11 PM CDT Gabriel Rutledge MD POINT OF CARE TESTING Final Re sult Performing Organization Address [facility]/ZIP Co de Phone Number [facility] CLIA# [id number] [address] [place] [address] * (ABNORMAL) POC GLUCOSE (04/11/2008 11:41 AM CDT) COMMENT, GLU POC Notified [facility] GLUCOSE POC 281(H) 65 - 99 mg/dL [facility] Venous blood specimen (specimen) 04/11/2008 11:41 AM CDT 04/11/2008 11:41 AM CDT Gabriel Rutledge MD POINT OF CARE TESTING Final Re sult [facility] CLIA# [id number] [address] [place] [address] * (ABNORMAL) POC GLUCOSE (04/11/2008 11:06 AM CDT) GLUCOSE POC 309(H) 65 - 99 mg/dL [facility] COMMENT, GLU POC Notified [facility] Venous blood specimen (specimen) 04/11/2008 11:06 AM CDT 04/11/2008 11:06 AM CDT Gabriel Rutledge MD POINT OF CARE TESTING Final Re sult Performing Organization Address [facility] Co de Phone Number [facility] CLIA# [id number] [address] [place] [address] * (ABNORMAL) POC GLUCOSE (04/11/2008 10:17 AM CDT) GLUCOSE POC 317(H) 65 - 99 mg/dL [facility] Venous blood specimen (specimen) 04/11/2008 10:17 AM CDT 04/11/2008 10:17 AM CDT Gabriel Rutledge MD POINT OF CARE TESTING Final Re sult Performing Organization Address [facility] Co de Phone Number [facility] CLIA# [id number] [address] [place] [address] * (ABNORMAL) POC GLUCOSE (04/11/2008 8:03 AM CDT) GLUCOSE POC 276(H) 65 - 99 mg/dL [facility] Venous blood specimen (specimen) 04/11/2008 8:03 AM CDT 04/11/2008 8:03 AM CDT Gabriel Rutledge MD POINT OF CARE TESTING Final Re sult Performing Organization Address [facility] Co de Phone Number [facility] CLIA# [id number] [address] [place] [address] * POC RT, BLOOD GASES (04/11/2008 7:10 AM CDT) POTASSIUM POC 4.3 3.5 - 4.9 mmol/L [facility] PATIENT'S TEMPERATURE 37.0 Degree C [facility] CALICUM IONIZED, WHOLE BLOOD 4.85 4.76 - 5.16 mg/dL [facility] SODIUM POC 137 135 - 145 mmol/L [facility] COMMENT, GASES POC NOTIFIED [facility] Blood specimen (specimen) 04/11/2008 7:10 AM CDT 04/11/2008 7:10 AM CDT Gabriel Rutledge MD CHEMISTRY ORDERABLES Final Res ult Performing Organization Address [facility]/ZIP Co de Phone Number [facility] CLIA# [id number] [address] [place] [address] * POC , URINE (04/11/2008 5:55 AM CDT) , URINE POC Negative Negative [facility] Urine specimen (specimen) 04/11/2008 5:55 AM CDT 04/11/2008 5:55 AM CDT Gabriel Rutledge MD POINT OF CARE TESTING Final Re sult Performing Organization Address [facility] Co de Phone Number [facility] CLIA# [id number] [address] [place] [address] * (ABNORMAL) POC GLUCOSE (04/11/2008 5:53 AM CDT) GLUCOSE POC 248(H) 65 - 99 mg/dL [facility] Venous blood specimen (specimen) 04/11/2008 5:53 AM CDT 04/11/2008 5:53 AM CDT Gabriel Rutledge MD POINT OF CARE TESTING Final Re sult Performing Organization Address City/[facility]/ZIP Co de Phone Number [facility] CLIA# [id number] [address] [place] [address] documented in this encounter Visit Diagnoses Not on filedocumented in this encounter Care Teams School Patrol Relationship Specialty Start Date End Date Rukhsana Oswald MD PCP - General Family Practice 01/05/23 documented as of this encounter
--- OUTSIDE RECORDS SUMMARY | 2025-05-26 10:25 | XMS_ITS | Clinical Summary ---
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 Gender Identity Not on file Sexual Orientation Not on file Last Filed Vital Signs Vital Sign Reading Time Taken Comments Blood Pressure 128/77 09/10/2023 2:19 PM WAREHOUSE ADMINISTRATOR Pulse 81 09/10/2023 2:19 PM WAREHOUSE ADMINISTRATOR Temperature 36.6 C (97.8 F) 09/10/2023 2:19 PM WAREHOUSE ADMINISTRATOR Respiratory Rate 18 09/10/2023 2:19 PM WAREHOUSE ADMINISTRATOR Oxygen Saturation 99% 09/10/2023 2:19 PM WAREHOUSE ADMINISTRATOR Inhaled Oxygen Concentration - - Weight 106.1 kg (234 lb) 09/10/2023 2:21 PM WAREHOUSE ADMINISTRATOR Height 160 cm (5' 3) 02/20/2023 9:52 [...] 10/08/2018 [place]orectal Cancer Screening 10/08/2028 [place] [facility] [place]: [facility] [address] [place] [address] Care Teams Interactive Web Developer Relationship Specialty Start Date End Date Rukhsana Oswald MD PCP - General Family Practice 01/05/23
--- OUTSIDE RECORDS SUMMARY | 2025-05-26 10:25 | XMS_ITS | Clinical Summary ---
Author Organization [facility] Address [address] [place] [address] Care Team Providers Care Latex Spooler Name Role Phone Trina Li MD Primary Care Provider [phone] Social History Tobacco Use Types Packs/Day Years [...] age to complete this topic Care Teams Latex Spooler Relationship Specialty Start Date End Date Trina Li MD [address] [place] [address] PCP - General 09/24/16
== END 2025-05-26 10:22 | disposition home or self-care (01) ==
PROVIDERS: PCP Family Medicine; Visit Provider Nurse Practitioner
DX: K74.60 Unspecified cirrhosis of liver (principal)
CPT/HCPCS: 76705

== ENCOUNTER 2025-08-07 07:37 | Outpatient (CLI) | payer MEDICARE, SELFPAY ==
--- OUTSIDE RECORDS SUMMARY | 2024-08-17 08:30 | XMS_ITS ---
Author Organization [facility] Address [address], [place] [address] Care Team Providers Care Medical Data Entry Clerk Name Role Phone Rukhsana Oswald Primary Care Provider Unavail Hu Archer DPM Unavailable [phone] ALLERGIES Allergen (clinical drug ingredient) Drug/Non Drug Allergy documented on EMR Reaction Allergy Type Onset Date Status Penicillin Unknown Drug Allergy Active Latex Latex Unknown Allergy Active Adhesive Unknown Allergy Active REASON FOR VISIT rt foot MEDICATIONS Medication SIG (Take, Route, Fr equency, Duration) Notes Start Date End Date Status Diclofenac Active Doculase Active Calcium Active Magnesium Active Folic Acid Active Clopidogrel Bisulfate Active Carvedilol Active Glimepiride Active oxyBUTYnin Active Pioglitazone HCl Act austyn Alendronate Sodium A ctive Naproxen Active Losartan Potassium A ctive Gabapentin Active tiZANidine HCl Activ e Pravastatin Sodium A ctive SOCIAL HISTORY Tobacco Use: Social History Observation Description Date Details (start date - stop date) Never Smoker NA - NA Sex Assigned At : Social History Observation Description Sex Assigned At Unknown Tobacco Use: Question Answer Notes Patient is a: nonsmoker Alcohol screening: Question Answer Notes Did you have a drink containing alcohol in the p ast year? No Points 0 Interpretation Negative Encounters Encounter Location Date Provider [facility] [address], [place] [address] 08/17/2024 Hu Samuels DPM Type 2 diabetes mellitus with peripheral neuropathy E11.42 ; Overgrown toenails L60.2 and Need for assistance with personal care Z74.1 ASSESSMENTS Encounter Date Diagnosis Assessment Notes Treatment Notes Treatment Clinical Notes 08/17/2024 Type 2 diabetes mellitus with peripheral neuropathy (ICD-10 - E11.42) Today we did discuss proper diabetic foot care including checking feet daily, no barefoot walking, maintain tight glycemic control, lotion to feet daily-not web spaces. Watch for signs of skin breakdown including callus formation or any type of blister wound and notify the office immediately. 08/17/2024 Overgrown toenails (ICD-10 - L60.2) 08/17/2024 Need for assistance with personal care (ICD-10 - Z74.1) The thickened, elongated, ingrowing, painful and dystrophic 10 toenails were debrided with a nail nipper without incident. Follow up in 3 months for routine foot care if needed PLAN OF TREATMENT Treatment Notes Assessment Notes Type 2 diabetes mellitus wit h peripheral neuropathy Today we did discuss proper diabetic jayjay t care including checking feet daily, no barefoot walking, maintain tight glycemic control, lotion to feet daily-not web spaces. Watch for signs of skin breakdown including callus formation or any type of blister wound and notify the office immediately. Need for assistance with personal care The thickened, elongated, ingrowing, painful and dystrophic 10 toenails were debrided with a nail nipper without incident. Follow up in 3 months for routine foot care if needed Progress Notes * Examination Category Sub-Category Detail Notes General Examination GENERAL APPEARANCE: RIGHT lo wer extremity Vascular: DP and PT pulses are palpable 2 out of 4. Capillary refill time is less than 3 seconds to all digits of the right lower extremity. Skin temp is warm to warm and a proximal to distal fashion. Dorsal pedal hair growth present. Absent dependent rubor. No edema. Neurological: Epricritic sensation grossly intact to right foot. Proprioception intact at first metatarsal phalangeal joint. Dermatological: Toenails 1 through 5 elongated. Webspaces 1 through 4 are clean, dry and intact. No open wounds or ulcerations noted. No rashes noted. Skin is supple and well hydrated. Musculoskeletal: Muscle strength is 5 out of 5 for all groups of the lower extremity. No pain with medial to lateral compression of the calf muscle. Ankle joint and subtalar joint range of motion are full without pain or crepitus. No obvious pedal abnormalities or deformities noted. History and Physical Notes * HPI (History of Present Illness) Category Sub-Category Detail Notes Depression Screening PHQ-2 (2015 Edition) Little interest or pleasure in doing things?: Not at all Feeling down, depressed, or hopeless?: N ot at all Total Score: 0
--- OUTSIDE RECORDS SUMMARY | 2025-03-15 03:50 | XMS_ITS ---
Author Organization [facility] Address [address] [address] Care Team Providers Care Pool Hand Name Role Phone Rukhsana Oswald Primary Care Provider Unavail Hu Archer DPM Unavailable [phone] Encounters Encounter Location Date Provider Diagnosis [facility] [address] [address] 03/15/2025 Hu Samuels DPM PLAN OF TREATMENT No Information
--- NOTE | ~2025-08-07 | NM_ITS ---
EXAMINATION: NM warren stress w perfusion DATE: 08/07/2025 10:47 INDICATION: Encounter for preprocedural cardiovascular examination. TECHNIQUE: Rest images were obtained following intravenous administration of 11 mCi Tc99m tetrofosmin (Myoview). The patient was infused intravenously with Lexiscan (regadenoson). Then, 34.3 mCi Tc99m tetrofosmin (Myoview) was administered intravenously, and stress images were obtained. Data was recons tructed into short axis and horizontal and vertical long axis SPECT images. Gated SPECT images were also obtained. COMPARISON: None. FINDINGS: There is no definite reversible or fixed perfusion abnormality to suggest ischemia or infarction. There is no segmental wall motion abnormality. Left ventricular ejection fraction measures > 70%. IMPRESSION: 1. No definite ischemia or infarct. 2. Normal left ventricular ejection fraction measuring >70%. Reviewed, dictated and finalized at location E.
--- OUTSIDE RECORDS SUMMARY | 2025-08-07 07:40 | XMS_ITS | Patient Health Record ---
Author Organization [facility] Address [address] [address] Care Team Providers Care Wastewater Treatment Engineer Name Role Phone Rukhsana Oswald Primary Care Provider Unavail able Hu Samuels DPM Unavailable [phone] ALLERGIES Allergen (clinical drug ingredient) Drug/Non Drug [...] left leg above knee (Z89.612) Active confirmed [id number] Encounters Encounter Location Date Provider Diagnosis [facility] [address] [address] 03/15/2025 Hu Samuels DPM [facility] [address] [place] [address] 08/17/2024 Hu Samuels DPM Type 2 diabetes [...] Insured Coverage Start Date Coverage End Date [facility] Medicare Advantage HMO [address] [address] [place] [address] [id number] Delmy Hull Self - patient is the insured MEDICAL (GENERAL) HISTORY Medical History History ICD Code diabetes mellitus high blood pressure neuropathy Surgical History Surgery Date(Month/Year) foot, right gallbladder
--- OUTSIDE RECORDS SUMMARY | 2025-08-07 07:40 | XMS_ITS | Encounter Summary ---
Author Organization [facility] Address 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 Gender Identity Not on file Sexual Orientation [...] 65 - 99 mg/dL [facility] Venous blood specimen (specimen) 04/11/2008 12:11 PM CDT 04/11/2008 12:11 PM CDT Gabriel Rutledge MD POINT OF CARE TESTING Final Re sult Performing Organization Address [facility]/ZIP Co de Phone Number [facility] CLIA# [id number] [address] [place] [address] * (ABNORMAL) POC GLUCOSE (04/11/2008 11:41 AM CDT) COMMENT, GLU POC Notified [facility] GLUCOSE POC 281(H) 65 - 99 mg/dL [facility] Venous blood specimen (specimen) 04/11/2008 11:41 AM CDT 04/11/2008 11:41 AM CDT Gabriel Rutledge MD POINT OF CARE TESTING Final Re sult [facility] CLIA# [id number] [address] [place] [address] * (ABNORMAL) POC GLUCOSE (04/11/2008 11:06 AM CDT) GLUCOSE POC 309(H) 65 - 99 mg/dL [facility] COMMENT, GLU POC Notified [facility] Venous blood specimen (specimen) 04/11/2008 11:06 AM CDT 04/11/2008 11:06 AM CDT Gabriel Rutledge MD POINT OF CARE TESTING Final Re sult Performing Organization Address [facility] Co de Phone Number [facility] CLIA# [id number] [address] [place] [address] * (ABNORMAL) POC GLUCOSE (04/11/2008 10:17 AM CDT) GLUCOSE POC 317(H) 65 - 99 mg/dL [facility] Venous blood specimen (specimen) 04/11/2008 10:17 AM CDT 04/11/2008 10:17 AM CDT Gabriel Rutledge MD POINT OF CARE TESTING Final Re sult Performing Organization Address [facility] Co de Phone Number [facility] CLIA# [id number] [address] [place] [address] * (ABNORMAL) POC GLUCOSE (04/11/2008 8:03 AM CDT) GLUCOSE POC 276(H) 65 - 99 mg/dL [facility] Venous blood specimen (specimen) 04/11/2008 8:03 AM CDT 04/11/2008 8:03 AM CDT Gabriel Rutledge MD POINT OF CARE TESTING Final Re sult Performing Organization Address [facility] Co de Phone Number [facility] CLIA# [id number] [address] [place] [place] [address] * POC RT, BLOOD GASES (04/11/2008 7:10 AM CDT) POTASSIUM POC 4.3 3.5 - 4.9 mmol/L [facility] PATIENT'S TEMPERATURE 37.0 Degree C [facility] CALICUM IONIZED, WHOLE BLOOD 4.85 4.76 - 5.16 mg/dL [facility] SODIUM POC 137 135 - 145 mmol/L [facility] COMMENT, GASES POC NOTIFIED [facility] Blood specimen (specimen) 04/11/2008 7:10 AM CDT 04/11/2008 7:10 AM CDT Gabriel Rutledge MD CHEMISTRY ORDERABLES Final Res ult Performing Organization Address [facility]/ZIP Co de Phone Number [facility] CLIA# [id number] [address] [place] [address] * POC , URINE (04/11/2008 5:55 AM CDT) , URINE POC Negative Negative [facility] Urine specimen (specimen) 04/11/2008 5:55 AM CDT 04/11/2008 5:55 AM CDT Gabriel Rutledge MD POINT OF CARE TESTING Final Re sult Performing Organization Address [facility] Co de Phone Number [facility] CLIA# [id number] [address] [place] [address] * (ABNORMAL) POC GLUCOSE (04/11/2008 5:53 AM CDT) GLUCOSE POC 248(H) 65 - 99 mg/dL [facility] Venous blood specimen (specimen) 04/11/2008 5:53 AM CDT 04/11/2008 5:53 AM CDT Gabriel Rutledge MD POINT OF CARE TESTING Final Re sult Performing Organization Address City/[facility]/ZIP Co de Phone Number [facility] CLIA# [id number] [address] [place] [address] documented in this encounter Visit Diagnoses Not on filedocumented in this encounter Care Teams Stonecutter Relationship Specialty Start Date End Date Rukhsana Oswald MD PCP - General Family Practice 01/05/23 documented as of this encounter
--- OUTSIDE RECORDS SUMMARY | 2025-08-07 07:41 | XMS_ITS | Clinical Summary ---
Author Organization [facility] Physician Office Building [address] [place] [id number] Care Team Providers Care Loan Underwriter Name Role Phone Murphy Lynch Primary Care Provider + Allergies Active Allergy Reactions Criticality Noted Date Comments Penicillins Rash Medium Medications clopidogrel (PLAVIX) 75 mg tablet clopidogrel 75 mg tablet TAKE 1 TABLET BY MOUTH EVERY DAY IN THE MORNING Active ONETOUCH VERIO strip USE TO TEST BLOOD SUGAR TWICE DAILY 3 8 Active carvedilol (COREG) 12.5 mg tablet 8 Active docusate sodium (DOK) 100 mg capsule daily. Activ e gabapentin (NEURONTIN) 600 mg tablet gabapentin 600 mg tablet Active insulin lispro (HumaLOG U-100 Insulin) 100 unit/mL injection Humalog U-100 Insulin 100 unit/mL subcutaneous solution Active ibuprofen (IBU) 800 mg tablet IBU 800 mg tablet TAKE 1 TABLET BY MOUTH three times daily NEEDED (TAKE WITH TRAMADOL) Active ULTRA THIN LANCETS 31 gauge misc USE TO TEST BLOOD SUGAR TWICE DAILY 3 8 Active lansoprazole (PREVACID) 15 mg capsule lansoprazole Active losartan-hydro chlorothiazide (HYZAAR) 100-25 mg per tablet losartan 100 mg-hydrochlorothi azide 25 mg tablet TAKE 1 TABLET BY MOUTH EVERY DAY Active metFORMIN (GLUCOPHAGE) 500 mg tablet every 12 hours. Active blood glucose diagnostic (ONETOUCH VERIO) strip OneTouch Verio strips USE TO TEST BLOOD SUGAR TWICE DAILY Active blood glucose control, normal (ONETOUCH VERIO MID CONTROL) solution OneTouch Verio Mid Control solution Active blood-glucose meter (ONETOUCH VERIO SYSTEM) [facility] [place] OneTouch Verio System Active oxybutynin (DITROPAN) 5 mg tablet TK 1 T PO TID FOR 30 DAYS 0 8 Active phentermine (ADIPEX-P) 37.5 mg tablet daily. Activ e pioglitazone (ACTOS) 15 mg tabletIndicati ons:type 2 diabetes mellitus daily. Active pravastatin (PRAVACHOL) 20 mg tablet pravastatin 20 mg tablet Active tiZANidine (ZANAFLEX) 4 mg tablet tizanidine 4 mg tablet Active topiramate (TOPAMAX) 100 mg tablet 8 Active triamcinolone (KENALOG) 0.1 % ointment triamcinolone acetonide 0.1 % topical ointment Active traMADol (ULTRAM) 50 mg tablet Take 50 mg by mouth every 6 (six) hours. Active linaCLOtide (LINZESS) 145 mcg capsule Take 1 capsule 1 hour before breakfast daily. 90 capsule 3 9 Active Active Problems Problem Noted Date Diagnosed Date Screening for colon cancer 09/20/2018 Overview (09/20/2018): Added automatically from request for surgery [id number] Iron deficiency anemia 09/15/2018 Assessment & Plan (06/17/2019 1:19 PM CDT): A CBC will be checked. An upper endoscopy and colonoscopy are recommended to help clarify the diagnosis and guide therapy. The risks, benefits, and alternatives were discussed with the patient and she agrees to proceed. The patient is on Plavix which will increase the risks of the endoscopies. Constipation 09/15/2018 Assessment & Plan (06/17/2019 1:16 PM CDT): The patient reports a change in bowel habits approximately 6 months ago. Await colonoscopy. Lower abdominal pain 09/15/2018 Assessment & Plan (06/17/2019 1:18 PM CDT): This is related to constipation. The patient may benefit from a medication such as Linzess, Amitiza, or Trulance. A prescription for Linzess 145 micro grams q.a.m. will be given. The side effects of the medication were discussed with the patient. Surgical History Surgery Date Site/Laterality Comments CHOLECYSTECTOMY LEG AMPUTATION CATARACT EXTRACTION Medical History Medical History Date Comments Hypertension Diabetes mellitus Anemia Cataracts, bilateral Irritable bowel syndrome GERD (gastroesophageal reflux disease) Hyperlipidemia Type 2 diabetes mellitus Family History Medical History Relation Name Comments Diabetes Father Hypertension Father Kidney cancer Father Diabetes Mother Hypertension Mother Relation Name Status Comments Father Mother Social History Tobacco Use Types Packs/Day Years Used Date Smoking Tobacco: Former Cigarettes Q uit: 2004 Smokeless Tobacco: Never Alcohol Use Standard Drinks/Week Comments No 0 (1 standard drink = 0.6 oz pur e alcohol) PHQ-2 Answer Date Recorded PHQ-2 Score 0 06/15/2019 Personal Safety Answer Date Recorded Getting School Help Needed Not on file 01/07 Comments Unknown Sex and Gender Information Value Date Recorded Sex Assigned at Not on file Legal Sex Female 9:31 AM [employer]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 Gender Identity Not on file Sexual Orientation Not on file Obstetrics History Last Filed Vital Signs Vital Sign Reading Time Taken Comments Blood Pressure 124/71 11/12/2018 7:26 AM [employer]EDIT UNION MANAGER Pulse 95 11/12/2018 7:26 AM [employer]EDIT UNION MANAGER Temperature 36.7 C (98 F) 10/08/2018 7:48 AM CREDIT UNION MANAGER Respiratory Rate 16 11/12/2018 7:26 AM CREDIT UNION MANAGER Oxygen Saturation 99% 11/12/2018 7:26 AM CREDIT UNION MANAGER Inhaled Oxygen Concentration - - Weight 102.1 kg (225 lb) 11/12/2018 7:26 AM CREDIT UNION MANAGER Height 165.1 cm (5' 5) 11/12/2018 7:26 AM CREDIT UNION MANAGER Body Mass Index 37.44 11/12/2018 7:26 AM CREDIT UNION MANAGER Plan of Treatment Not on file [place] [address] [facility] MDCR HMO REF Care Teams Loan Underwriter Relationship Specialty Start Date End Date Murphy Lynch PA [address] [place] [id number] PCP - General Internal Medicine 07/29/18
--- OUTSIDE RECORDS SUMMARY | 2025-08-07 07:41 | XMS_ITS | Data Portability ---
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 Plan of Treatment Reminders Order Date Submit Date Provider Last Modified By Organization Details Last Modified Time Details Appointments None recorded . Lab HbA1c (hemoglo bin A1c), blood 2021 022 [email or web address] In-Office Order, Internal Use Only DO Not Attach Compendium DO Not Attach Compendium, Do Not Delete/merge, [id number] 17:06:30 microalb umin, urine 2020 [email or web address] In-Office Order, Internal Use Only DO Not Attach Compendium DO Not Attach Compendium, Do Not Delete/merge, [id number] 12:27:[address] referral - Continue to treat . Thank you .. 2020 021 ZEHRA Not available 09:15:31 Procedures None recorded . Surgeries None recorded . Imaging None recorded . Medication Orders predniso ne 20 mg tablet 2021 022 [facility] #[id number], [address], [place], [id number], 12:49:58 ergocalc iferol (vitamin D2) 1,250 mcg (50,000 unit) capsule 2020 [facility] #[id number], [address], [place], [id number], 10:57:28 tizanidi ne 4 mg tablet 2020 [place] [facility], [address], [address], [place], [place], [id number], 10:59:44 alendron ate 70 mg tablet 2020 [place] [facility], [address], [address], [place], [place], [id number], 10:52:38 oxybutyn in chloride 5 mg tablet 2020 [place] [facility], [address], [address], [place], [place], [id number], 10:52:37 pioglita zone 15 mg tablet 2020 [place] [facility], [address], [address], [place], [place], [id number], 10:52:38 tizanidi ne 4 mg tablet 2020 [place] [facility], [address], [address], [place], [place], [id number], 10:52:37 tramadol 50 mg tablet [email or web address] [place] [address] [id number], [address], [place], [id number], 10:52:41 Stool Softener 250 mg capsule 2020 [facility] #59156, [address], [place], [id number], 12:18:16 Linzess 145 mcg capsule 2020 [facility], [address] [place] [address], [id number], 12:20:06 alendron ate 70 mg tablet 2020 [facility] #11124, [address] [facility], [place], [place], [id number], 12:11:11 calcium 600 mg (as carbonat e)-vitam in D3 10 mcg (400 unit) tablet 2020 [email or web address] [address] [facility], [place], [place], [id number], 10:27:56 Novolog U-100 Insulin aspart 100 unit/mL subcutan eous solution 2020 [facility] #26223, [address] [facility], [place], [place], [id number], 12:18:26 tramadol 50 mg tablet [email or web address] [place] [address] [id number], [address], [place], [id number], 12:05:39 naproxen 500 mg tablet 2020 021 [facility] #[id number], [address] [facility], [place], [place], [id number], 03:31:49 Patient TargetsNo targets recorded. Patient InstructionsNo instructions recorded. 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 Thank you .. Referring Physician: Murphy Lynch, Family Medicine, Encounter Date: 03/21/2021 Results Created Date Observation Date Name Description Value Unit Range Abnormal Flag Note LastModifiedBy Organization Detail LastModifiedTime 03/21/20 21 03/21/2021 micro album in, urine Microalbumin Normal Not Available In-Of fice Order Internal Use Only DO Not Attach Compendium DO Not Attach Compendium, Do Not Delete/merge, [id number] 03/21/2021 12:04:54 12/04/19 22 12/04/2021 HbA1c (hemo globi n A1c), blood HbA1c 7.4% Not Available In-Office Order Internal Use Only DO Not Attach Compendium DO Not Attach Compendium, Do Not Delete/merge, [id number] 12/04/2021 12:54:59 04/01/20 21 04/01/2021 MAMMO , scree sin, digit al, bilat eral No observ ation record ed. [address] [address], [place], [address], 04/26/2021 13:36:27 04/26/20 21 04/22/2021 US, head + neck, soft tissu e No observ ation record ed. [email or web address] Not Available 05/2021 17:24:46 06/05/20 21 06/04/2021 fine needl e aspir ation , ultra sound guide d, neck mass (PROC ) No observ ation record ed. [address] [address], [place], [address], 07/05/2021 17:55:38 06/07/20 21 06/04/2021 fine needl e aspir ation , ultra sound guide d, neck mass (PROC ) No observ ation record ed. [address], [place], [address], 07/05/2021 17:56:06 11/05/19 22 10/27/2021 US, doppl er, venou s No observ ation record ed. [email or web address] Not Available 10/27 22:39:06 Result Notes None recorded. Problems Name Problem SNOMED Code Status Onset Date Resolution Date Notes Provider Name and Address Organization Details Recorded Time Urinary tract infectio us disease 56682672 Active Not Available [facility] 2 12:51:46 Acute urinary tract infectio n 481838622 Active Not Available [facility] 2 12:51:45 Open wound of foot 972194828 Active Not Available [facility] 2 12:51:45 Vaginiti s and vulvovag initis Active Not Available [facility] 2 12:51:46 Eczema 58591163 Active Not Available [facility] 2 12:51:46 Acute sinusiti s 21156008 Active Not Available [facility] 2 12:51:46 Strain of tendon of upper arm 256411657 Active Not Available [facility] 2 12:51:46 Strain of muscle of upper limb 507856185 Active Not Available [facility] 2 12:51:46 Uncontro lled type 2 diabetes mellitus 861510665 Active Not Available [facility] 2 12:51:46 Pain of hip region 11361308 Active Not Available [facility] 2 12:51:46 Type 2 diabetes mellitus 67012747 Completed 08/25/2016 Murphy Lynch PA-C Attn: Accounting ,[address] [place], [address] , [facility] 8 13:18:24 Obesity 087890776 Active Not Available [facility] 2 12:51:45 Hyperlip idemia 34368632 Active Not Available [facility] 2 12:51:46 Peripher al vascular disease 784868679 Active Not Available [facility] 2 12:51:46 Shoulder strain 490677565 Active Not Available [facility] 12:51:45 Amputee - limb 342670162 Active 2016 above the knee: left Not Available [facility] 2 12:51:45 Tinea corporis 51511975 Active 2016 Not Available [facility] 2 12:51:46 Cataract of right eye Active 2016 Not Available [facility] 2 12:51:45 Retinopa thy Active 2016 left eye Not Available [facility] 2 12:51:45 Verruca vulgaris 01850100 Active 2016 Not Available [facility] 2 12:51:45 Goiter 9769731 Active 2016 Not Available [facility] 2 12:51:46 [facility] hyperten willy 93599656 Active 2016 Not Available [facility] 2 12:51:46 Hemorrho ids 77076370 Active 2016 Not Available [facility] 2 12:51:45 Vitamin D deficien cy 35280301 Active 2016 Not Available [facility] 2 12:51:46 Administ ration of influenz a vaccine Active 2016 Not Available [facility] 2 12:51:46 Administ ration of pneumoco ccal vaccine Active 2016 Not Available [facility] 2 12:51:45 Thyroid nodule 317589506 Active 2016 Not Available [facility] 2 12:51:46 Screenin g for malignan t neoplasm of breast Active 2017 Not Available [facility] 2 12:51:46 Retinal detachme nt 33528053 Active 2017 Not Available [facility] 2 12:51:46 Pain of right shoulder joint 12528572487 973702 Active 2017 Not Available [facility] 2 12:51:45 Type 2 diabetes mellitus 15242381 Active 2017 Not Available [facility] 2 12:51:46 Partial thicknes s rotator cuff tear 068029010 Active 2017 Not Available [facility] 2 12:51:45 Pain of shoulder region 52332905 Active 2017 Not Available [facility] 2 12:51:46 Onychomy cosis of toenails 827590784 Active 2017 Not Available [facility] 2 12:51:46 Neuropat hy 494142440 Active 2017 Not Available [facility] 2 12:51:45 Edema of lower extremit y 039443161 Active 2017 Not Available [facility] 2 12:51:45 Venous insuffic iency of lower limb 561828859 Active 2017 right : see doppler 08/17/20 Not Available [facility] 2 12:51:46 Irritabl e bowel syndrome 12467441 Active 2017 Not Available [facility] 2 12:51:45 Anemia 508367871 Active 2017 Not Available [facility] 2 12:51:45 Iron deficien cy anemia 10674370 Active 2017 Not Available [facility] 2 12:51:46 Peripher al arterial occlusiv e disease 828195281 Active [address] Goldman Not Available [facility] 2 12:51:45 Acute bronchit is 55333384 Active 2018 Not Available [facility] 2 12:51:46 Low back pain 102675648 Active 2018 Not Available [facility] 2 12:51:45 Thromboc ytopenic disorder 539488415 Active 2018 Not Available [facility] 2 12:51:46 Supraspi natus tear 714773378 Active 2018 Not Available [facility] 2 12:51:46 Acute follicul itis 009621513 Active 2019 Not Available [facility] 2 12:51:45 Osteopen ia 321835493 Active 2020 Not Available [facility] 2 12:51:46 Parotiti s 73689743 Active 2020 [facility] [place] , left side parotiti s Not Available [facility] 2 12:51:45 Osteopor osis 21420599 Active 2020 see bone density 1 Not Available [facility] 2 12:51:46 Chronic idiopath ic constipa tion 65842497 Active 2020 Not Available [facility] 2 12:51:46 Increase d frequenc y of urinatio n 981667178 Active 2020 Not Available [facility] 2 12:51:45 Cellulit is of lower limb 828198882 Active 2021 Not Available [facility] 2 12:51:45 Acute contact dermatit is 529379087 Active 2021 Not Available [facility] 2 12:51:46 Problem Notes None recorded. Procedures Surgical History Date Name Laterality Status Provider Name and Address Organization Details Recorded Time 10/26/19 18 Eye Surgery completed ELIZABETH Mccauley - [place] 06/23/2018 11:58:23 10/26/19 17 Eye Surgery completed Krystyna Metzger [place] - [place] 06/23/2018 11:57:20 Amputation completed Juany Houser [place] - [place] 11/08/2014 12:12:35 Cholecystectomy completed Juany Houser [place] - [place] 11/08/2014 12:12:35 Imaging Results None recorded. Procedure Notes None recorded. Medical Equipment None Reported. Allergies Allergen ID Allergen Name Allergen Category Reaction Reaction Severity Criticality Documentation Date Start Date Code Code System Note Provider Name and Address Organization Details Recorded Time 737897 adhesive environme nt,medica tion rash severe Not available 12/08/2019 ELIZABETH Barnes, [place] - [facility] 0 12:21:51 870820 latex environme nt,medica tion other severe Not available 03/21/2021 50458 91 RxNorm ELIZABETH [place], [place] - [facility] 1 16:04:01 26592 Product containin g penicilli n (product) medicatio n rash Not available Not available 11/08/2014 32128 8001 SNOMED ELIZABETH [place], [place] - [facility] 5 12:04:11 Medications Name Sig Start Date Stop Date Status Note LastModified by Organization Details LastModified Time brittany doc [facility] contai doc control 08/26 completed Not Available Not Available Not Available Prescript ion - Renewal 07/30 completed PRESCRIP TIONS FAXED ON 11/16/19 16 Not Available Not Available Not Available lancing sajan mislancin g device 07/30 completed Not Available Not Available Not Available lancets ultr mis thinpharm acist choice ultra thin lancets 07/30 completed Not Available Not Available Not Available insulin syrg mis 1ml/31g active Not Available Not Available Not Available alcohol swabs 70 % pads 07/30 completed Not Available Not Available Not Available Prescript ion - Change 07/30 completed Not Available Not Available Not Available insulin syrg mis 0.5/30g active Not Available Not Available Not Available lancets mis 30glancet s 30g twist top 07/30 completed Not Available Not Available Not Available ultra thin mis 31g active Not Available Not Available Not Available insulin syringe/0 .3ml/30g x 5/16 30g x 5/16 0.3 ml misc active Not Available Not Available Not Available insulin syringe/0 .5ml/30g x 5/16 30g x 5/16 0.5 ml misc active Not Available Not Available Not Available simple diag mis lancing active Not Available Not Available Not Available clever chek mis voiceclev er chek auto-code voice blood glucose monitorin g system active Not Available Not Available Not Available clever chek sima voiceclev er chek auto-code voice test strips active Not Available Not Available Not Available furosemid e 40 mg tablet Take 1 tablet every day by oral route for 10 days. 08/26 completed Not Available Not Available Not Available pioglitaz one 15 mg tablet TAKE 1 TABLET BY MOUTH DAILY IN THE MORNING 2021 active Not Available Not Available Not Avai lable metformin 500 mg tablet Take 2 tablets twice a day by oral route before meals for 30 days. 07/22 completed Not Available Not Available Not Available promethaz ine-DM 6.25 mg-15 mg/5 mL oral syrup Take 5 mL every 6 hours by oral route as needed for 10 days. 07/22 completed Not Available Not Available Not Available gabapenti n 600 mg tablet TAKE 1 TABLET BY MOUTH 3 TIMES DAILY active Not Available Not Available No t Available doxycycli ne hyclate 100 mg capsule 07/30 completed Not Available Not Available Not Available carvedilo l 12.5 mg tablet Take 1 tablet twice a day by oral route as directed for 30 days. active Not Available Not Available No t Available oxybutyni n chloride ER 10 mg tablet,ex tended release 24 hr TAKE ONE TABLET BY MOUTH EVERY DAY 07/30 completed Not Available Not Available Not Available IBU 800 mg tablet TAKE 1 TABLET BY MOUTH three times daily NEEDED (TAKE WITH TRAMADOL ) 03/21 completed Not Available Not Available Not Available pravastat in 40 mg tablet TAKE 1 TABLET BY MOUTH EVERY DAY 08/26 completed Not Available Not Available Not Available tizanidin e 4 mg tablet TAKE 1 TABLET BY MOUTH EVERY 8 HOURS NEEDED active Not Available Not Available No t Available fluconazo le 150 mg tablet Take 1 tablet every 72 hours by oral route as directed for 9 days. 07/22 completed Not Available Not Available Not Available phenazopy ridine 200 mg tablet Take 1 tablet 3 times a day by oral route for 2 days. 07/22 completed Not Available Not Available Not Available prednison e 20 mg tablet 2 tabs po twice daily for 2 days , 1 tab twice daily for 5 days ; 0.5 tab twice daily for 2 days . 0.5 tab for one day . take second dose every day at noon active Not Available Not Available No t Available alendrona te 70 mg tablet TAKE 1 TABLET BY MOUTH EVERY WEEK active Not Available Not Available No t Available Lantus U-100 Insulin 100 unit/mL subcutane ous solution Inject 30 units every day by subcutan eous route at bedtime for 30 days. 08/26 completed Not Available Not Available Not Available clindamyc in HCl 150 mg capsule TAKE 1 CAPSULE BY MOUTH FOUR TIMES DAILY FOR 10 DAYS active Not Available Not Available No t Available potassium chloride ER 10 mEq tablet,ex tended release Take 1 tablet every day by oral route for 10 days. 08/26 completed Not Available Not Available Not Available metronida zole 500 mg tablet Take 1 tablet twice a day by oral route for 7 days. 12/14 completed Not Available Not Available Not Available phentermi ne 37.5 mg tablet Take 1 tablet every day by oral route. 12/14 completed Not Available Not Available Not Available acetamino phen 300 mg-codein e 30 mg tablet TK 1 T PO Q 8 TO 12 H PRN active Not Available Not Available No t Available clopidogr el 75 mg tablet TAKE 1 TABLET BY MOUTH DAILY IN THE MORNING active Not Available Not Available No t Available Benadryl Itch Stopping 1 %-0.1 % topical cream APPLY TO THE AFFECTED AREA FOUR TIMES DAILY NEEDED FOR ITCHING active Not Available Not Available No t Available ciproflox acin 500 mg tablet TAKE 1 TABLET BY MOUTH EVERY 12 HOURS FOR 10 DAYS 01/01 completed Not Available Not Available Not Available sulfameth oxazole 800 mg-trimet hoprim 160 mg tablet TAKE 1 TABLET BY MOUTH EVERY 12 HOURS FOR 10 DAYS active Not Available Not Available No t Available tramadol 50 mg tablet TAKE 1 TABLET BY MOUTH TWICE DAILY NEEDED active Not Available Not Available No t Available losartan 100 mg-hydroc hlorothia zide 25 mg tablet TAKE 1 TABLET BY MOUTH EVERY DAY 07/22 completed Not Available Not Available Not Available oxycodone -acetamin ophen 5 mg-325 mg tablet active Not Available Not Available Not Available terbinafi ne HCl 250 mg tablet TAKE 1 TABLET BY MOUTH EVERY DAY IN THE MORNING 07/30 completed Not Available Not Available Not Available prednisol one acetate 1 % eye drops,pina pension 08/26 completed Not Available Not Available Not Available methocarb manjinder 750 mg tablet Take 1 tablet 3 times a day by oral route as needed for 30 days. 08/26 completed Not Available Not Available Not Available Humalog U-100 Insulin 100 unit/mL subcutane ous solution INJECT 5 UNITS SUBCUTAN EOUSLY 3 TIMES DAILY BEFORE MEALS active Not Available Not Available No t Available Proctozon e-HC 2.5 % topical cream perineal applicato r 08/26 completed Not Available Not Available Not Available baclofen 10 mg tablet TAKE 1 TABLET BY MOUTH THREE TIMES DAILY NEEDED 08/23 completed Not Available Not Available Not Available hydrocort isone 1 % topical cream apply a thin layer to the affected areas by topical route 2 times per day 07/22 completed Not Available Not Available Not Available doxycycli ne monohydra te 100 mg capsule active Not Available Not Available Not Available cephalexi n 500 mg capsule TAKE 1 CAPSULE BY MOUTH FOUR TIMES DAILY FOR 3 DAYS 12/04 completed Not Available Not Available Not Available diphenhyd ramine 25 mg capsule Take 1 capsule every day by oral route at bedtime for 30 days. 08/23 completed Not Available Not Available Not Available triamcino lone acetonide 0.1 % topical ointment apply thin layer bid to affected areas 03/22 completed Not Available Not Available Not Available losartan 25 mg tablet TAKE 1 TABLET BY MOUTH DAILY 2021 active Not Available Not Available Not Avai lable mupirocin calcium 2 % topical cream 07/22 completed Not Available Not Available Not Available gentamici n 0.1 % topical cream APPLY TOPICALL Y TO THE AFFECTED AREA TWICE DAILY active Not Available Not Available No t Available aspirin 81 mg chewable tablet Chew 1 tablet every day by oral route. 07/30 completed Not Available Not Available Not Available hydrocort isone 2.5 % topical cream APPLY A THIN LAYER TO THE AFFECTED AREA(S) BY TOPICAL ROUTE 2 TIMES PER DAY 07/30 completed Not Available Not Available Not Available alcohol swabs Apply 1 pad twice a day by topical route. 07/30 completed Not Available Not Available Not Available pravastat in 20 mg tablet Take 1 tablet every day by oral route in the evening. 12/14 completed Not Available Not Available Not Available mupirocin 2 % topical ointment active Not Available Not Available Not Available Novolog U-100 Insulin aspart 100 unit/mL subcutane ous solution INJECT 5 UNITS SUB-Q THREE TIMES DAILY BEFORE MEALS 2020 active Not Available Not Available Not Avai lable Vitamin D2 1,250 mcg (50,000 unit) capsule TAKE 1 CAPSULE BY MOUTH 2 TIMES A WEEK WITH FOOD DIRECTED active Not Available Not Available No t Available losartan 50 mg-hydroc hlorothia zide 12.5 mg tablet TAKE 1 TABLET BY MOUTH EVERY DAY IN THE MORNING 09/24 completed last noted fill 09-15-19 Not Available Not Available Not Available docusate sodium 250 mg capsule TAKE 1 CAPSULE BY MOUTH TWICE DAILY active Not Available Not Available No t Available pioglitaz one 30 mg tablet TAKE 1 TABLET BY MOUTH EVERY DAY( DISCONTI LAVERNE THE 15 MG DOSE) 06/21 completed leg swell Not Available Not Available Not Available oxybutyni n chloride 5 mg tablet TAKE 1 TABLET BY MOUTH 3 TIMES DAILY active Not Available Not Available No t Available betametha sone dipropion ate 0.05 % topical ointment APPLY A THIN LAYER TO THE AFFECTED AREA(S) BY TOPICAL ROUTE twice DAILY to right thigh 07/30 completed Not Available Not Available Not Available topiramat e 100 mg tablet Take 1 tablet every day by oral route. 12/14 completed Not Available Not Available Not Available acetamino phen 500 mg capsule Take 2 capsules as needed by oral route. 03/21 completed Not Available Not Available Not Available medroxypr ogesteron e 150 mg/mL intramusc ular suspensio n Inject 1 mL every 3 months by intramus cular route. 07/30 completed Not Available Not Available Not Available dicyclomi ne 10 mg capsule 07/22 completed Not Available Not Available Not Available insulin syringe U-100 with needle 0.5 mL 31 gauge x 03/10 completed Not Available Not Available Not Available docusate sodium 100 mg tablet Take 1 tablet every day by oral route. 03/22 completed Not Available Not Available Not Available naproxen 500 mg tablet 1 active Not Available Not Available Not Available diabetic supplies, miscellan . 07/30 completed Not Available Not Available Not Available insulin syringe U-100 with needle 0.3 mL 30 USE THREE TIMES DAILY active Not Available Not Available No t Available ezetimibe 10 mg tablet Take 1 tablet every day by oral route for 90 days. 03/21 completed muscle aches , fatigue Not Available Not Available Not Available Benicar HCT 40 mg-25 mg tablet active Not Available Not Available Not Available metoprolo l tartrate 25 mg tablet 07/30 completed Not Available Not Available Not Available Vesicare 5 mg tablet Take 1 tablet every day by oral route in the morning for 28 days. 07/30 completed Not Available Not Available Not Available tizanidin e 4 mg capsule active Not Available Not Available Not Available lansopraz ole 03/22 completed Not Available Not Available Not Available OneTouch Ultra2 Meter kit 07/30 completed Not Available Not Available Not Available Januvia 100 mg tablet TAKE ONE TABLET DAILY IN THE MORNING 12/14 completed Not Available Not Available Not Available calcium 600 mg (as carbonate )-vitamin D3 10 mcg (400 unit) tablet TAKE 1 TABLET BY MOUTH TWICE DAILY 09/13 completed Not Available Not Available Not Available Lantus Solostar U-100 Insulin 100 unit/mL (3 mL) subcutane ous pen INJECT 60 UNITS SUBCUTAN EOUS AT BEDTIME FOR 30 DAYS 07/30 completed Not Available Not Available Not Available diclofena c 1 % topical gel APPLY 2 GRAM TO THE AFFECTED AREA TOPICALL Y FOUR TIMES DAILY active Not Available Not Available No t Available Durezol 0.05 % eye drops 08/26 completed Not Available Not Available Not Available Prevnar 13 (PF) 0.5 mL intramusc ular syringe 07/22 completed Not Available Not Available Not Available OneTouch Delica Lancets 33 gauge 07/30 completed Not Available Not Available Not Available Suprep Bowel Prep Kit 17.5 gram-3.13 gram-1.6 gram oral solution 07/22 completed Not Available Not Available Not Available Tradjenta 5 mg tablet Take 1 tablet every day by oral route before meals for 30 days. 08/26 completed Not Available Not Available Not Available OneTouch Verio test strips USE TO TEST BLOOD SUGAR TWICE DAILY active Not Available Not Available No t Available OneTouch Verio Mid Control solution active Not Available Not Available Not Available Linzess 145 mcg capsule Take 1 capsule every day by oral route. active Not Available Not Available No t Available Ultra Thin Lancets 31 gauge USE TO TEST BLOOD SUGAR TWICE DAILY 2017 active Not Available Not Available Not Avai lable triamcino lone acetonide 0.1 %-emollie nt combinati on no86 topical cream Apply to affected area twice daily 2013 active Not Available Not Available Not Avai lable Jardiance 25 mg tablet Take 1 tablet every day by oral route for 30 days. 08/26 completed Not Available Not Available Not Available OneTouch Verio Meter 03/22 completed Not Available Not Available Not Available ID NOW COVID-19 Test Kit TEST DIRECTED active Not Available Not Available No t Available Fluzone Quad (PF) 60 mcg (15 mcg x 4)/0.5 mL IM syringe ADM 0.7ML IM UTD 12/14 completed Not Available Not Available Not Available Vitals Date Recorded Body height Oxygen saturation Oxygen saturation in Arterial blood by Pulse oximetry Heart rate Body temperature Systolic And Diastolic Provider Name and Address Organization Details Last Updated DateTime 2 165.1 cm 97 % 97 % 86 /min 97.7 [degF] 136/72 mm[Hg] Laury Russell MA [facility] 2 12:35:22 Date Recorded Body height Oxygen saturation Oxygen saturation in Arterial blood by Pulse oximetry Heart rate Body temperature Body mass index (BMI) Body weight Systolic And Diastolic Provider Name and Address Organization Details Last Updated DateTime 165.1 cm 96 % 96 % 75 /min 97.8 [degF] 39.2 kg/m2 118290. 08 g 140/68 mm[Hg] Laury Russell MA [facility] 1 11:43:33 Date Recorded Body height Provider Name an d Address Organization Details Last Updated DateTime 06/21/2021 165.1 cm Laury De La Cr mary kay [facility] 06/21/2021 10:24:28 Date Recorded Body height Provider Name an d Address Organization Details Last Updated DateTime 06/24/2021 165.1 cm Beth AriasELIZABETH [facility] 021 10:28:07 Date Recorded Body height Provider Name an d Address Organization Details Last Updated DateTime 09/13/2021 165.1 cm Laury De La Cr mary kay [facility] 09/13/2021 10:27:07 Social History Question Answer Notes LastModified by Organizat ion Details LastModified Time Tobacco Smoking Status Former Smoker ELIZABETH Mccauley, [facility] 06/23/2018 11:56:26 Do You Have An Advance Directive? No Information not available 11/08/2014 Are You Blind Or Do You Have Difficulty Seeing? No Information not available 11/08/2014 What Is Your Level Of Caffeine Consumption? Moderate Information not available 11/08/2014 Are You A Caregiver? No Information not available 11/08/2014 How Much Tobacco Do You Chew? None Information not available 11/08/2014 Are You Deaf Or Do You Have Serious Difficulty Hearing? No Information not available 11/08/2014 What Type Of Diet Are You Following? REGULAR Information not available 11/08/2014 Do You Have A Directive To Physicians? No Information not available 11/08/2014 Which Illicit Or Recreational Drugs Have You Used? N/a Information not available 11/08/2014 Education 12 Information no t available 11/08/2014 Are There Any Guns Present In Your Home? Yes Information not available 11/08/2014 Hard Of Hearing Or Deaf In One Or Both Ears? No Information not available 11/08/2014 Legally Blind In One Or Both Eyes? No Information not available 11/08/2014 Marital Status Informatio n not available 11/08/2014 Do You Have A Medical Power Of Drier Tender? No Information not available 11/08/2014 What Was The Date Of Your Most Recent Tobacco Screening? 12/04/2021 Information not available 12/04/2021 Do You Have An Out Of Hospital DNR? No Information not available 11/08/2014 Performs Monthly Self-breast Exam? Yes Information not available 11/08/2014 Seat Belts Used Routinely Yes Information not available 11/08/2014 Smoke Alarm In Home Yes Information not available 11/08/2014 How Much Tobacco Do You Smoke? 1 PPD Pt Quit 2006 [email or web address] Information not available 06/23/2018 General Stress Level Medium Information not available 11/08/2014 Do You Use Sunscreen Routinely? Yes Information not available 11/08/2014 Has Tobacco Cessation Counseling Been Provided? Yes Information not available 03/21/2021 On What Date Was Tobacco Cessation Counseling Provided? 12/04/2021 Information not available 12/04/2021 Do You Have Difficulty Walking Or Climbing Stairs? Yes Information not available 11/08/2014 Sex: Unknown Functional Status Question Answer Note LastModified by Organizat ion Details LastModified Time What is your level of alcohol consumption? None Information not available 11/08/2014 Do you have transportation difficulties? No Information not available 11/08/2014 Do you have difficulty doing errands alone? Yes Information not available 11/08/2014 What is your occupation? Disabled Information not available 11/08/2014 Do you have difficulty dressing, bathing, grooming, or toileting? Yes Information not available 11/08/2014 What is your exercise level? Occasional Information not available 11/08/2014 Mental Status Question Answer Note LastModified by Organization D etails LastModified Time Do you have difficulty concentrating, remembering or making decisions? No Information no t available 11/08/2014 Family History Relationship Description Onset Age of this Age Resolved Age Notes LastModified by Organization Details LastModified Time Mother Cerebrovascu lar accident Not available 15:51:59 Mother Dementia Not availabl e 05/22/2015 15:51:59 Mother Diabetes mellitus Not available 2014 15:51:59 Mother Hypercholest erolemia Not available 2014 15:51:59 Mother Hypertensive disorder Not available 2014 15:51:59 Mother Osteoporosis Not avai lable 05/22/2015 15:51:59 Mother Malignant neoplasm of ovary Not available 2014 15:51:59 Father Coronary arterioscler osis Not available 2014 15:51:59 Father Diabetes mellitus Not available 2014 15:51:59 Father Heart disease Not available 2014 15:51:59 Father Hypertensive disorder Not available 2014 15:51:59 Father Malignant neoplasm of kidney Not available 2014 15:51:59 Sister Hypertensive disorder Not available 2014 15:51:59 Brother Diabetes mellitus Not available 2014 15:51:59 Medical History Condition Response Diabetes Y High Blood Pressure Y Gynecological HistoryNo gynecological history recorded. Obstetrics History GPAL:G 0 P 0 0 0 0 Immunizations Vaccine Type Date Status Note Provider Nam e and Address Organization Details Recorded Time Influenza, split virus, quadrivalent, preservative 0 completed Not Available [facility] 05/29/2021 10:06:16 COVID-19, mRNA, LNP-S, PF, 100 mcg/0.5mL dose or 50 mcg/0.25mL dose 1 completed Not Available [facility] 05/29/2021 10:06:16 COVID-19, mRNA, LNP-S, PF, 100 mcg/0.5mL dose or 50 mcg/0.25mL dose 1 completed Not Available [facility] 05/29/2021 10:06:16 Influenza, split virus, quadrivalent, preservative 1 completed Laura Booker LPN null, [place] - [facility] 08/09/2021 16:40:55 COVID-19, mRNA, LNP-S, PF, 100 mcg/0.5mL dose or 50 mcg/0.25mL dose 1 completed Nury Campo LPN null, [place] [facility] 10/04/2021 10:07:05 Influenza, split virus, quadrivalent, preservative 7 completed Not Available [facility] 11/12/2019 02:34:22 Influenza, split virus, quadrivalent, PF 8 completed Not Available [facility] 11/12/2019 02:47:53 pneumococcal polysaccharide PPV23 1 completed Beth Arias MA null, [place] - [facility] 06/24/2021 10:36:09 Influenza, split virus, quadrivalent, preservative 5 completed Not Available [facility] 11/12/2019 02:45:27 Past Encounters Encounter ID Performer Location Encounter Start Date Encounter Closed Date Diagnosis/Indication Diagnosis SNOMED-CT Code Diagnosis ICD10 Code Diagnosis IMO Codes Diagnosis Note [id number] GIL[facility]ERTO Garcia (Adult Med) [address] [place] [address] [id number] 0 10/24/2014 11:52:16 10/27/2014 15:57:02 Uses contraception 50023354 [id number] GILBERTO Garcia (Adult Med) [address] [place] [address] [id number] 0 11/08/2014 11:18:53 11/08/2014 13:58:55 Type 2 diabetes mellitus 19296257 Obesity 550898828 Hyperlipidemia 85809085 Peripheral vascular disease 549626001 Shoulder strain 637139940 [id number] GILBERTO Garcia (Adult Med) [address] [place] [address] [id number] 0 01/22/2015 09:56:32 01/22/2015 11:29:42 Shoulder strain 940910474 Obesity 946797121 Type 2 fred betes mellitus 45272601 Hyperlipidemia 36012518 Peripheral vascular disease 277921700 Uses contraception 05768644 Urinary tr act infectious disease 07423136 [id number] G[facility]O Garcia (Adult Med) [address] [place] [address] 80375-255 0 04/24/2015 11:11:56 04/24/2015 14:06:17 Uses contraception 23203889 [id number] MD Wilner Busby (Adult Med) [address] [place] [address] [id number] 0 05/22/2015 15:25:31 05/22/2015 16:18:31 Shoulder strain 072233659 Type 2 fred betes mellitus 52253738 Obesity 245309311 Acute urin gordon tract infection 837289703 Hyperlipidemia 09573762 Open wound of foot 364642209 Peripheral vascular disease 764272297 Urinary tr act infectious disease 15479959 Vaginitis and vulvovaginitis 728173581 [id number] GILBERTO Garcia (Adult Med) [address] [place] [address] [id number] 0 07/25/2015 10:09:25 07/25/2015 14:26:11 Uses contraception 87418778 Type 2 fred betes mellitus 79806374 Bladder mu scle dysfunction - overactive 397967552 Shoulder strain 390851607 Adult heal th examination 955737780 Obesity 077207054 Eczema 93762632 Peripheral vascular disease 273524588 Hyperlipidemia 12814740 [id number] GILBERTO Garcia (Adult Med) [address] [place] [address] [id number] 0 10/24/2015 11:45:30 10/24/2015 13:13:13 Hyperlipidemia 77846641 E78.5 Eczema 14022509 L30.9 Obesity 749630548 E66.9 Peripheral vascular disease 882659701 I73.9 Type 2 fred betes mellitus 79986869 E11.40 Acute sinusitis 42673560 J01.90 Uses contraception 76593 004 Z30.42 Amputee 04504000 Z89.9 left , btk [id number] GILBERTO Garcia (Adult Med) [address] [place] [address] 78917-793 0 01/23/2016 11:45:45 01/23/2016 12:29:31 Amputee 58107877 Z89.9 left , btk Bladder mu scle dysfunction - overactive 079752760 N32.81 Uses contraception 37422 004 Z30.42 Eczema 82593529 L30.9 Hyperlipidemia 04769568 E78.5 Obesity 620020713 E66.9 Peripheral vascular disease 426949428 I73.9 Type 2 fred betes mellitus 06223108 E11.40 Strain of tendon of upper arm 906840481 S46.911D Strain of muscle of upper limb 600206602 S46.911D [id number] GILBERTO Garcia (Adult Med) [address] [place] [address] 47305-818 0 03/27/2016 12:01:54 03/27/2016 12:41:24 Hyperlipidemia 92522519 E78.5 Obesity 523726192 E66.9 Bladder mu scle dysfunction - overactive 531213918 N32.81 Uses contraception 80898 004 Z30.42 Eczema 16886260 L30.9 Uncontroll ed type 2 diabetes mellitus 359818328 E11.65 [id number] MD [facility]by (Adult Med) [address] [place] [address] [id number] 0 07/31/2016 11:22:06 07/31/2016 12:35:43 Amputee 93846810 Z89.9 left , btk Uncontroll ed type 2 diabetes mellitus 613187828 E11.65 Shoulder strain 65860798 4 S46.912D Hyperlipidemia 76233715 E78.5 Eczema 12509069 L30.9 Uses contraception 71968 004 Z30.42 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 So no need for another depo provera injections . Last one was in December 2015. Adult heal th examination 428061050 Z00.00 Pain of hip region 41518 002 M25.428 [id number] Trina Li MD [facility] (Adult Med) [address] [place] [address] [id number] 0 12/02/2016 10:43:38 12/02/2016 11:35:57 Eczema 88014857 L30.9 Pain of hip region 85966 002 M25.551 Hyperlipidemia 35941516 E78.5 Uncontroll ed type 2 diabetes mellitus 944634203 E11.65 Amputee - limb 814714999 Z89.9 left leg atk [id number] Trina Li MD [facility] (Adult Med) [address] [place] [address] [id number] 01/20/2017 11:13:48 01/20/2017 18:04:27 Amputee - limb 783332316 Z89.9 left leg atk Peripheral vascular disease 415537191 I73.9 Obesity 582082608 E66.9 Uncontroll ed type 2 diabetes mellitus 482166866 E11.65 [id number] Trina Li MD [facility] (Adult Med) [address] [place] [address] [id number] 0 03/16/2017 16:01:31 03/16/2017 16:14:05 Verruca vulgaris 84244483 B07.9 bra line in back , right Hyperlipidemia 24695822 E78.5 Uncontroll ed type 2 diabetes mellitus 545041648 E11.65 Eczema 30779201 L30.9 Obesity 823461062 E66.9 Peripheral vascular disease 745283170 I73.9 Bladder mu scle dysfunction - overactive 057633028 N32.81 Amputee - limb 847180832 Z89.9 left leg atk Retinopathy 028552434 H3 5.9 Cataract of right eye 12 23765363 3562134 H26.9 [id number] Trina Li MD [facility] (Adult Med) [address] [place] [address] [id number] 0 06/01/2017 15:13:47 06/01/2017 16:32:33 Amputee - limb 622861422 Z89.9 left leg atk Pain of hip region 08316 002 M25.551 Goiter 1188926 E04.9 Hyperlipidemia 91063439 E78.5 Eczema 79793430 L30.9 Obesity 186620224 E66.9 Peripheral vascular disease 168162105 I73.9 Uncontroll ed type 2 diabetes mellitus 938681204 E11.65 [id number] Trina Li MD [facility] (Adult Med) [address] [place] [address] [id number] 0 06/26/2017 10:52:05 06/26/2017 15:36:12 Uncontrolled type 2 diabetes mellitus 523363433 E11.65 [id number] Trina Li MD [facility] (Adult Med) [address] [place] [address] [id number] 07/30/2017 10:58:05 07/30/2017 14:00:54 Vitamin D deficiency 68317331 E55.9 Hyperlipidemia 59582305 E78.5 Uncontroll ed type 2 diabetes mellitus 478299502 E11.65 Essential hypertension 12674486 I10 Hemorrhoids 66049860 K64 .9 Pain of hip region 34840 002 M25.551 Administra tion of influenza vaccine 67416086 Z23 Amputee - limb 402258700 Z89.9 [id number] Trina Li MD [facility] (Adult Med) [address] [place] [address] [id number] 0 10/01/2017 10:03:16 10/01/2017 11:16:14 Uncontrolled type 2 diabetes mellitus 733519168 E11.65 Urinary tr act infectious disease 18101565 N39.0 Eczema 68115234 L30.9 Administra tion of pneumococcal vaccine 08636993 Z23 Vitamin D deficiency 347 42415 E55.9 Essential hypertension 22738508 I10 Hyperlipidemia 76126001 E78.5 Obesity 205482669 E66.9 Thyroid nodule 960941786 E04.1 Amputee - limb 625746622 Z89.9 Pain of hip region 79254 002 M25.236 [id number] Trina Li MD [facility] (Adult Med) [address] [place] [address] 17383-491 0 12/31/2017 11:03:29 12/31/2017 12:05:29 Shoulder strain 596128169 S46.912D Uncontroll ed type 2 diabetes mellitus 927191130 E11.65 Essential hypertension 76760229 I10 Amputee - limb 439908896 Z89.9 Strain of muscle of upper limb 185956562 S46.911D Screening for malignant neoplasm of breast 929606905 Z12.31 [id number] Trina Li MD [facility] (Adult Med) [address] [place] [address] 84629-950 0 03/15/2018 12:10:25 03/15/2018 13:29:56 Hyperlipidemia 27716140 E78.5 Type 2 fred betes mellitus 61353894 E11.40 Amputee - limb 718869470 Z89.9 left leg above the knee Peripheral vascular disease 277952394 I73.9 Strain of tendon of upper arm 630876489 S46.911D Shoulder strain 34566713 4 S46.912D Essential hypertension 80615169 I10 Vitamin D deficiency 347 12979 E55.9 Pain of ri ght shoulder joint 5972475610 5056110 M25.511 Retinal detachment 21557 000 H35.70 [id number] Trina Li MD [facility] (Adult Med) [address] [place] [address] 76517-563 0 06/23/2018 11:26:34 06/23/2018 12:39:28 Edema of lower extremity 370055882 R60.0 Peripheral vascular disease 746373490 I73.9 Uncontroll ed type 2 diabetes mellitus 494552276 E11.65 Hyperlipidemia 41629618 E78.5 Pain of sh oulder region 50275309 M25.101 [id number] MD Wilner [facility]by (Adult Med) [address] [place] [address] [id number] 0 08/23/2018 10:45:51 08/23/2018 12:05:52 Essential hypertension 28721618 I10 Peripheral vascular disease 893958137 I73.9 Vitamin D deficiency 347 55299 E55.9 Administra tion of influenza vaccine 48451485 Z23 Hyperlipidemia 10438561 E78.5 Uncontroll ed type 2 diabetes mellitus 675835521 E11.65 Obesity 564757842 E66.9 Irritable bowel syndrome 33286938 K58.9 Pain of hip region 89207 002 M25.551 Venous ins ufficiency of lower limb 006362333 I87.2 Type 2 fred betes mellitus 75067942 E11.40 [id number] MD Wilner Busby (Adult Med) [address] [place] [address] [id number] 0 12/20/2018 12:05:26 12/21/2018 09:22:40 Essential hypertension 60274695 I10 Anemia 458248052 D64.9 Type 2 fred betes mellitus 32516964 E11.40 Vitamin D deficiency 347 94313 E55.9 Iron defic iency anemia 82282240 D50.9 Irritable bowel syndrome 03625986 K58.9 Partial th ickness rotator cuff tear 370138155 M75.101 Obesity 700756464 E66.9 Uncontroll ed type 2 diabetes mellitus 206539884 E11.65 Hyperlipidemia 98978851 E78.5 Peripheral arterial occlusive disease 197340682 I73.9 [id number] MD Wilner Busby (Adult Med) [address] [place] [address] 22609-191 0 03/22/2019 11:38:18 03/22/2019 12:23:51 Essential hypertension 50732173 I10 Vitamin D deficiency 347 98784 E55.9 Peripheral arterial occlusive disease 547761575 I73.9 Venous ins ufficiency of lower limb 024470033 I87.2 Neuropathy 712131989 G62 .9 Pain of ri ght shoulder joint 9913390351 0070949 M25.511 Partial th ickness rotator cuff tear 144795351 M75.101 Bladder mu scle dysfunction - overactive 332184019 N32.81 Peripheral vascular disease 166348452 I73.9 Obesity 020001145 E66.9 Hyperlipidemia 95548789 E78.5 Type 2 fred betes mellitus 45752078 E11.40 E11.3213 Irritable bowel syndrome 56869049 K58.9 [id number] GIL[facility]ERTO Garcia (Adult Med) [address] [place] [address] 34235-365 0 06/16/2019 11:19:17 06/16/2019 12:50:21 Pain of hip region 02812221 M25.551 Neuropathy 250533452 G62 .9 Partial th ickness rotator cuff tear 437850310 M75.101 Type 2 fred betes mellitus 23576543 E11.40 E11.3213 Hyperlipidemia 60734681 E78.5 Obesity 888058642 E66.9 Peripheral vascular disease 111160227 I73.9 Amputee - limb 847339269 Z89.9 left leg above the knee Essential hypertension 31746974 I10 Vitamin D deficiency 347 03281 E55.9 Pain of ri ght shoulder joint 5250251925 9350067 M25.511 Venous ins ufficiency of lower limb 553329008 I87.2 Irritable bowel syndrome 25060215 K58.9 [id number] MD [facility]by (Adult Med) [address] [place] [address] [id number] 0 07/22/2019 15:48:53 07/25/2019 09:09:18 Thrombocytopenic disorder 926023598 D69.6 Urinary tr act infectious disease 43796112 N39.0 Low back pain 397242203 M54.5 Essential hypertension 47088927 I10 Peripheral arterial occlusive disease 771670057 I73.9 Irritable bowel syndrome 53933616 K58.9 Venous ins ufficiency of lower limb 526689926 I87.2 Neuropathy 232061308 G62 .9 Partial th ickness rotator cuff tear 903730490 M75.101 Vitamin D deficiency 347 18011 E55.9 Bladder mu scle dysfunction - overactive 446313771 N32.81 Hyperlipidemia 98329056 E78.5 Type 2 fred betes mellitus 60763725 E11.40 E11.3213 [id number] MD Wilner Busby (Adult Med) [address] [place] [address] 38640-965 0 12/08/2019 11:58:06 12/09/2019 08:20:17 Type 2 diabetes mellitus 29328571 E11.40 E11.3213 Urinary tr act infectious disease 96420705 N39.0 Thyroid nodule 497616142 E04.1 Pain of hip region 76223 002 M25.551 Strain of muscle of upper limb 355983792 S46.911D Uncontroll ed type 2 diabetes mellitus 580903773 E11.65 Acute folliculitis 87407 7007 L73.9 Essential hypertension 56774569 I10 Hyperlipidemia 82971556 E78.5 Irritable bowel syndrome 52679971 K58.9 Neuropathy 667619351 G62 .9 Obesity 789716338 E66.9 Peripheral arterial occlusive disease 562349933 I73.9 Peripheral vascular disease 193884445 I73.9 Retinal detachment 05090 000 H35.70 Supraspinatus tear 26522 6004 M75.110 Venous ins ufficiency of lower limb 422538857 I87.2 Vitamin D deficiency 347 17947 E55.9 [id number] Trina Li MD [facility] (Adult Med) [address] [place] [address] 16109-814 0 03/16/2020 08:22:42 03/20/2020 18:00:33 Partial thickness rotator cuff tear 492961653 M75.101 Amputee - limb 091018513 Z89.9 left leg above the knee Edema of l ower extremity 492030486 R60.0 Essential hypertension 20259927 I10 Hyperlipidemia 12212244 E78.5 Iron defic iency anemia 79200168 D50.9 Low back pain 414349875 M54.5 Neuropathy 389894202 G62 .9 Peripheral arterial occlusive disease 852816623 I73.9 Type 2 fred betes mellitus 22245297 E11.40 E11.3213 Z86.31 Venous ins ufficiency of lower limb 404858364 I87.2 Vitamin D deficiency 347 74324 E55.9 [id number] Trina Li MD [facility] (Adult Med) [address] [place] [address] 95030-801 0 05/16/2020 10:06:27 05/16/2020 13:21:15 Thrombocytopenic disorder 578801085 D69.6 Pain of hip region 79745 002 M25.551 Type 2 fred betes mellitus 35151571 E11.40 E11.3213 Z86.31 Hyperlipidemia 96273598 E78.5 Amputee - limb 022345175 Z89.9 left leg above the knee Anemia 301631094 D64.9 Essential hypertension 93891069 I10 Hemorrhoids 39684635 K64 .9 Iron defic iency anemia 15438731 D50.9 Irritable bowel syndrome 53738988 K58.9 Low back pain 653941659 M54.5 Neuropathy 543318229 G62 .9 Obesity 685149859 E66.9 Peripheral vascular disease 518769731 I73.9 Vitamin D deficiency 347 52825 E55.9 [id number] Trina Li MD [facility] (Adult Med) [address] [place] [address] [id number] 0 12/14/2020 08:05:23 12/14/2020 12:24:01 Acute sinusitis 72625846 J01.90 Osteopenia 988165076 M85 .80 Goiter 5527150 E04.9 Neuropathy 732667889 G62 .9 Anemia 030205417 D64.9 Essential hypertension 12711894 I10 Hemorrhoids 63397103 K64 .9 Hyperlipidemia 64526955 E78.5 Low back pain 234888930 M54.5 Peripheral arterial occlusive disease 810256681 I73.9 Peripheral vascular disease 688224242 I73.9 Retinal detachment 64991 000 H35.70 Thrombocyt openic disorder 070178721 D69.6 Type 2 fred betes mellitus 35185236 E11.40 E11.3213 Z86.31 Venous ins ufficiency of lower limb 695317848 I87.2 Vitamin D deficiency 347 74006 E55.9 [id number] Trina Li MD [facility] (Adult Med) [address] [place] [address] 15112-901 0 01/01/2021 08:54:55 01/01/2021 16:12:08 Essential hypertension 62008173 I10 Hyperlipidemia 33775005 E78.5 Iron defic iency anemia 23331773 D50.9 Low back pain 871879123 M54.5 Neuropathy 608592309 G62 .9 Type 2 fred betes mellitus 08997485 E11.40 E11.3213 Z86.31 [id number] Trina Li MD [facility] (Adult Med) [address] [place] [address] 65640-473 0 02/05/2021 08:40:40 02/07/2021 10:54:48 Amputee - limb 239742785 Z89.9 left leg above the knee Anemia 615215208 D64.9 Essential hypertension 89721446 I10 Hyperlipidemia 32152490 E78.5 Iron defic iency anemia 87370827 D50.9 Low back pain 833771432 M54.5 Neuropathy 153155864 G62 .9 Peripheral arterial occlusive disease 100545871 I73.9 Peripheral vascular disease 070816563 I73.9 Retinal detachment 02543 000 H35.70 Type 2 fred betes mellitus 14564499 E11.40 E11.3213 Z86.31 Vitamin D deficiency 347 73100 E55.9 Venous ins ufficiency of lower limb 672451611 I87.2 Osteopenia 233182172 M85 .80 Pain of sh oulder region 37953572 M25.519 Shoulder strain 19051470 4 S46.912D Thrombocyt openic disorder 762576647 D69.6 [id number] MD [facility] (Adult Med) [address] [place] [address] 69949-812 0 03/21/2021 11:09:29 03/21/2021 12:33:11 Type 2 diabetes mellitus 36309355 E11.40 E11.3213 Z86.31 Osteoporosis 86040316 M8 1.0 Essential hypertension 39594301 I10 Hyperlipidemia 36958410 E78.5 Low back pain 740812148 M54.5 Chronic id iopathic constipation 24451908 K59.04 Vitamin D deficiency 347 57036 E55.9 Venous ins ufficiency of lower limb 233075614 I87.2 Peripheral vascular disease 281400260 I73.9 Anemia 338365460 D64.9 [id number] GIL[facility]ERT[facility] Garcia (Adult Med) [address] [place] [address] [id number] 0 06/21/2021 08:44:23 06/21/2021 17:19:04 Uncontrolled type 2 diabetes mellitus 952846938 E11.65 Osteoporosis 20436869 M8 1.0 Essential hypertension 44413129 I10 Low back pain 229393194 M54.5 Neuropathy 640293189 G62 .9 Increased frequency of urination 035428017 R35.0 Vitamin D deficiency 347 02655 E55.9 Type 2 fred betes mellitus 69673341 E11.40 E11.3213 Z86.31 Peripheral vascular disease 200916653 I73.9 Hyperlipidemia 82421984 E78.5 Amputee - limb 893567754 Z89.9 left leg above the knee [id number] GILBERTO Garcia (Adult Med) [address] [place] [address] [id number] 0 06/24/2021 10:15:12 06/24/2021 21:19:10 Administration of pneumococcal vaccine 15169496 Z23 [id number] MD [facility] (Adult Med) [address] [place] [address] [id number] 0 09/13/2021 10:24:57 09/13/2021 11:13:27 Vitamin D deficiency 21824418 E55.9 Low back pain 518773283 M54.50 Amputee - limb 642437028 Z89.9 left leg above the knee Anemia 028116107 D64.9 Chronic id iopathic constipation 79644444 K59.04 Eczema 57790337 L30.9 Essential hypertension 36149072 I10 Hemorrhoids 23577276 K64 .9 Hyperlipidemia 58486739 E78.5 Iron defic iency anemia 91036997 D50.9 Irritable bowel syndrome 67637478 K58.9 Neuropathy 679632005 G62 .9 Obesity 741136352 E66.9 Osteoporosis 16446812 M8 1.0 Peripheral arterial occlusive disease 930867483 I73.9 Peripheral vascular disease 013792685 I73.9 Retinal detachment 79320 000 H35.70 Type 2 fred betes mellitus 57752743 E11.40 E11.3213 Z86.31 Venous ins ufficiency of lower limb 484510485 I87.2 [id number] MD [facility] (Adult Med) [address] [place] [phone] 12/04/2021 12:12:11 12/04/2021 12:56:22 Essential hypertension 36032337 I10 Low back pain 260412059 M54.50 Neuropathy 501244124 G62 .9 Osteoporosis 32283690 M8 1.0 Peripheral vascular disease 769872098 I73.9 Type 2 fred betes mellitus 83583222 E11.40 E11.3213 Z86.31 Vitamin D deficiency 347 52532 E55.9 Cellulitis of lower limb 518354851 L03.119 Acute cont act dermatitis 333480568 L25.9 Anemia 752177156 D64.9 Hyperlipidemia 30313925 E78.5 Iron defic iency anemia 89785621 D50.9 Irritable bowel syndrome 93587607 K58.9 Peripheral arterial occlusive disease 895087141 I73.9 Health Concerns Section Related Observation LastModified by Organization Detai ls LastModified Time None Recorded Concern Status LastModified by Organization Details LastModified Time None Recorded Advance Directives Directive N: Payers Insurance Date Sequence Insurance Name Policy Number Policy Suh Covered Member ID Shu Member ID Guarantor Name 02/04/2022 1 [facility] (MEDICARE REPLACEMENT/A DVANTAGE - HMO) [id number] Delmy Hull [id number] Delmy Hull Notes Date Note Type Note Provider Name and Address Organization Details Recorded Time 03/21/2021 text/html ROS as noted in the HPI no changes Murphy Lynch PA-C Attn: [address] [place], [place], [address] [place] [address], [place] - [place] 03/27/2021 12:07:34 06/21/2021 text/html ROS as noted in the HPI no changes Murphy Lynch PA-C Attn: [address] [place], [address], [place] 06/23/2021 20:05:03 09/13/2021 text/html ROS as noted in the HPI no changes Murphy Lynch PA-C Attn: [address] [place], [address], [place] 09/14/2021 21:06:45 12/04/2021 text/html ROS as noted in the HPI no changes Murphy Lynch PA-C Attn: [address] [place], [address], [place] 12/09/2021 20:38:10 OBGyn Episode No OBEpisode recorded.
--- OUTSIDE RECORDS SUMMARY | 2025-08-07 07:42 | XMS_ITS | Clinical Summary ---
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 Gender Identity Not on file Sexual Orientation Not on file Last Filed Vital Signs Vital Sign Reading Time Taken Comments Blood Pressure 128/77 09/10/2023 2:19 PM CUTTING AND CREASING PRESS OPERATOR Pulse 81 09/10/2023 2:19 PM CUTTING AND CREASING PRESS OPERATOR Temperature 36.6 C (97.8 F) 09/10/2023 2:19 PM CUTTING AND CREASING PRESS OPERATOR Respiratory Rate 18 09/10/2023 2:19 PM CUTTING AND CREASING PRESS OPERATOR Oxygen Saturation 99% 09/10/2023 2:19 PM CUTTING AND CREASING PRESS OPERATOR Inhaled Oxygen Concentration - - Weight 106.1 kg (234 lb) 09/10/2023 2:21 PM CUTTING AND CREASING PRESS OPERATOR Height 160 cm (5' 3) 02/20/2023 9:52 [...] (2 of 2 - PCV) 06/24/2022 06/24/2021 OSTEOPOROSIS SCREENING 2024 INFLUENZA VACCINE (#1) 2025 , 07/19/2020, 08/23/2018, Additional history exists COVID-19 Vaccine (2024-2 6 season) 2025 09/26/2021, 02/12/2021, 01/15/2021 COLORECTAL SCREENING 10/08/2028 10/08/2018 Colorectal Cancer Screening 10/08/2028 Insurance O MCR Care Teams Course Developer Relationship Specialty Start Date End Date Rukhsana Oswald MD PCP - General Family Practice 01/05/23
--- OUTSIDE RECORDS SUMMARY | 2025-08-07 07:42 | XMS_ITS | Clinical Summary ---
Author Organization [facility] [employer] Address [address] [facility] [place] [address] Care Team Providers Care Textbook Associate Name Role Phone Rukhsana Oswald MD Primary Care Provider [phone] Source Comments [facility],non-[facility] Affiliates and Associated Physician Practices is amultiple site organization consisting of ambulatory clinics and hospital sitesin [place], [place], [place] and [place]. This disclosure is being madepursuant to the Care Everywhere program and may not contain all information available regarding this patient. Last updated 18.[facility] [employer] Allergies Active Allergy Reactions Criticality Noted Date Comments Penicillins Rash Medium 11/16/2019 Medications * Be aware that medications may not be up to date on this document. Alwaysverify current medications with the patient. clopidogrel (PLAVIX) 75 MG tablet 1 tablet once daily Active oxybutynin (DITROPAN) 5 MG tablet 2 tablets once daily 06/17/20 18 Active LINZESS 145 MCG capsule 1 capsule once daily 08/10/20 19 Active pioglitazone (ACTOS) 15 MG tablet 1 tablet once daily Active carvedilol (COREG) 12.5 MG tablet 1 tablet 2 times daily 07/21/20 18 Active topiramate (TOPAMAX) 100 MG tablet Take 100 mg by mouth once daily 06/21/20 19 Active phentermine (ADIPEX-P) 37.5 MG tablet 1 tablet once daily Active losartan - hydroCHLOROthiazide (HYZAAR) 50-12.5 MG tablet 1 tablet once daily Active pravastatin (PRAVACHOL) 20 MG tablet 1 tablet once daily Active insulin lispro (HUMALOG) 100 UNIT/ML vial Sliding scale; when above 200 at mealtime. Active diclofenac sodium (VOLTAREN) 1 % gel 2 g 4 times daily Apply up to 4 X daily on arms 07/22/20 19 Active acetaminophen-codeine (TYLENOL #3) 300-30 MG tablet 1 tablet 2 times daily 09/17/20 19 Active gabapentin (NEURONTIN) 600 MG tablet Take 600 mg by mouth 3 times daily as needed Active Calcium Carbonate Antacid (TUMS PO) Take by mouth as directed Active Acetaminophen (TYLENOL PO) Take 500 mg by mouth as directed Active Immunizations Immunization Administration Dates Next Due INFLUENZA VACCINE 07/22/2019 Social History Tobacco Use Types Packs/Day Years Used Date Smoking Tobacco: Former Smokeless Tobacco: Never Comments Unknown Sex and Gender Information Value Date Recorded Sex Assigned at Not on file Legal Sex Female 5:52 AM KAIAWHINA [employer] Gender Identity Not on file Sexual Orientation Not on file Last Filed Vital Signs Vital Sign Reading Time Taken Comments Blood Pressure 104/66 12/29/2019 1:55 PM KAIAWHINA [employer]I Pulse 84 12/29/2019 1:55 PM [employer]WHINA [employer] Temperature 36.1 C (96.9 F) 12/29/2019 1:55 PM [employer]WHINA [employer]ORI Respiratory Rate 18 12/29/2019 1:55 PM KAIAWHINA [employer]ORI Oxygen Saturation 97% 12/29/2019 1:55 PM [employer]WHINA [employer]ORI Inhaled Oxygen Concentration - - Weight 95.3 kg (210 lb) 11/16/2019 9:36 AM KA[employer]WHINA [employer]ORI Height 154.9 cm (5' 1) 12/29/2019 1:55 PM KA[employer]WHINA [employer]I Body Mass Index 39.68 11/16/2019 9:36 AM KA[employer]WHINA [employer]I Plan of Treatment Health Maintenance Due Date Last Done Comments BONE DENSITY TESTING 1960 COLOGUARD (AGES 45-75) - COLON CA SCREENING 1960 CT COLONOGRAPHY - COLON CA SCREENING 1960 FIT - COLON CA SCREENING 1960 FLEX SIG - COLON CA SCREENING 1960 MAMMOGRAM 1960 HIV SCREENING 1974 HEPATITIS C SCREENING 08/16/1977 DTAP/TDAP/TD VACCINES (1 - Tdap) 1978 PAP SMEAR 1980 PNEUMOCOCCAL VACCINE 50+ (1 of 1 - PCV) 2009 ZOSTER VACCINE (1 of 2) 2009 SCREENING FOR DIABETES 11/16/2022 11/16/2019 DEPRESSION SCREENING 10/26/2024 MEDICARE AWV CALENDAR YEAR 2024 COVID-19 VACCINE ( season) 2025 09/26/2021, 02/12/2021, 01/15/2021 INFLUENZA VACCINE (#1) 2025 , 07/19/2020, 07/22/2019, Additional history exists COLON MONITORING 10/08/2028 10/08/2018 COLONOSCOPY - COLON CA SCREENING 10/08/2028 10/08/2018 Colorectal Cancer Screening 10/08/2028 Respiratory Syncytial Virus (RSV) Vaccine Pt: or over 60 yrs (1 - 1-dose 75+ series) 2034 HEPATITIS B VACCINE Aged Out No longe r eligible based on patient's age to complete this topic HIB VACCINE Aged Out No longer eligi ble based on patient's age to complete this topic HPV VACCINE Aged Out No longer eligi ble based on patient's age to complete this topic MENINGOCOCCAL (Group B) VACCINE SHARED DECISION-MAKING Aged Out No longer eligible based on patient's age to complete this topic MENINGOCOCCAL GROUPS A/C/Y/W VACCINE Aged Out No longer eligible based on patient's age to complete this topic Procedures Procedure Name Priority Date/Time Associated Diagnosis Comments COMPREHENSIVE METABOLIC PANEL Routine 11/16/2019 10:41 AM [employer] Thrombocytopenia, secondary from Last 3 Months or Most Recently Relevant to Health Maintenance Results * (ABNORMAL) COMPREHENSIVE METABOLIC PANEL (11/16/2019 10:41 AM KAIAWHINA KURA [employer] MAORI) BUN 14 7 - 26 mg/dL 11/16/2019 11:33 AM [facility] Creatinine 0.7 0.6 - 1.2 mg/dL 11/16/2019 11:33 AM [facility] Sodium 140 136 - 145 mmol/L 11/16/2019 11:33 AM [facility] Potassium 4.2 3.5 - 4.5 mmol/L 11/16/2019 11:33 AM [facility] Chloride 103 98 - 107 mmol/L 11/16/2019 11:33 AM [facility] CO2 28 22 - 29 mmol/L 11/16/2019 11:33 AM [facility] Glucose 309(H) 70 - 115 mg/dL 11/16/2019 11:33 AM [facility] Calcium 9.6 8.4 - 10.2 mg/dL 11/16/2019 11:33 AM [facility] Protein Total 7.5 6.0 - 8.3 g/dL 11/16/2019 11:33 AM [facility] Albumin 3.5 3.4 - 5.0 g/dL 11/16/2019 11:33 AM [facility] Bilirubin Total 0.6 0.2 - 1.2 mg/dL 11/16/2019 11:33 AM [facility] Alkaline Phosphatase 101 40 - 150 Units/L 11/16/2019 11:33 AM [facility] ALT 13 0 - 55 Units/L 11/16/2019 11:33 AM [facility] AST 16 5 - 34 Units/L 11/16/2019 11:33 AM [facility] Anion Gap 13 8 - 18 11/16/2019 11:33 AM [facility] BUN/Creatinine Ratio 20 7 - 23 11/16/2019 11:33 AM [facility] Osmolality Calculated 302(H) 270 - 300 mOsm/kg 11/16/2019 11:33 AM [facility] Albumin/Globulin Ratio 0.9(L) 1.1 - 2.3 11/16/2019 11:33 AM [facility] eGFR >60 >60 mL/min/1.7 3 m2 11/16/2019 11:33 AM [facility] Blood BLOOD SPECIMEN / Unknown Lab Venipuncture / Unknown 11/16/2019 10:[address] [facility] 11/16/2019 11:[address] [facility] us Prabhjot Gorman MD LAB - CHEMISTRY ORDERABLES [place] garcía Result [address] [phone] from Last 3 Months or Most Recently Relevant to Health Maintenance Insurance [employer] MEDICARE ADV Care Teams Textbook Associate Relationship Specialty Start Date End Date Rukhsana Oswald MD [address] [place] [address] PCP - General Family Medicine 04/06/25
--- NOTE | 2025-08-07 08:08 | EST_ITS ---
Patient Info Name: Delmy Hull Age: 64 years : 1960 Gender: Female Ht: 63 in Wt: 250 lbs BSA: 2.31 m2 HR: 72 bpm BP: 148 / 66 mmHg Exam Date: 08/07/2025 8:08 AM Patient Status: O Admit Date: 08/07/2025 Exam Type: CA stress warren w NM A regadenoson stress test was performed. Staff Referring Physician: Rukhsana Oswald MD Attending Provider: Rukhsana Oswald MD Exercise Technologist: Meggan Dye Exercise Physician: Da Martinez DO Summary 1. 1. Negative lexiscan stress test for ischemic ST changes by ECG criteria. 2. 2. Baseline hypertension. 3. 3. Nuclear scan to follow and will be reported separately. Please correlate with it. 4. 4. Patient informed of the above results. Protocol: Lexiscan Stress ECG Details Stage: REST Duration (min): 0 min : 55 sec HR (bpm): 71 SBP (mmHg): 148 DBP (mmHg): 66 Stage: REST Duration (min): 22 min : 27 sec HR (bpm): 71 SBP (mmHg): 148 DBP (mmHg): 66 Stage: STAGE 1 Duration (min): 1 min : 0 sec HR (bpm): 75 SBP (mmHg): 160 DBP (mmHg): 65 Stage: RECOVERY Duration (min): 1 min : 0 sec HR (bpm): 76 SBP (mmHg): 160 DBP (mmHg): 65 Stage: RECOVERY Duration (min): 2 min : 0 sec HR (bpm): 75 SBP (mmHg): 160 DBP (mmHg): 65 Stage: RECOVERY Duration (min): 3 min : 0 sec HR (bpm): 73 SBP (mmHg): 146 DBP (mmHg): 63 Stage: RECOVERY Duration (min): 3 min : 12 sec HR (bpm): 73 SBP (mmHg): 146 DBP (mmHg): 63 Rest HR: 71 bpm Peak HR: 76 bpm Rest Sys BP: 148 mmHg Peak Sys BP: 160 mmHg Max Pred HR: 155 bpm % Max Pred HR: 49 % Target HR: 132 bpm Max RPP: 12,160 bpm*mmHg Termination Reason: Completed protocol Cardiac Symptoms: Shortness of breath Total Time: 1 min : 0 sec Rest Napoles BP: 66 mmHg Peak [place]oles BP: 65 mmHg Total Dose: 0.4 mg Resting ECG Sinus rhythm. Stress ECG No ST changes. Arrhythmias None. Report Signatures
== END 2025-08-07 07:38 | disposition home or self-care (01) ==
PROVIDERS: PCP Family Medicine; Visit Provider Family Medicine
DX: Z01.810 Encounter for preprocedural cardiovascular examination (principal)
CPT/HCPCS: 78452; 93017; A9502; J2785

== ENCOUNTER 2025-08-30 00:07 | Day surgery (SDC) | payer MEDICARE, SELFPAY ==
[2025-08-22 13:43] VITALS: BMI 47.8
--- NOTE | 2025-08-22 15:05 | PC.NURSE ---
Spoke with patient regarding medication Plavix. Patient verbalizes understanding that the last dose is to be taken on 08/22/25 and the Endoscopist will instruct them when to restart after the procedure.
--- OUTSIDE RECORDS SUMMARY | 2025-08-30 00:12 | XMS_ITS | Clinical Summary ---
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 Gender Identity Not on file Sexual Orientation Not on file Last Filed Vital Signs Vital Sign Reading Time Taken Comments Blood Pressure 124/71 11/12/2018 7:26 AM CISCO CERTIFIED INTERNETWORK EXPERT Pulse 95 11/12/2018 7:26 AM CISCO CERTIFIED INTERNETWORK EXPERT Temperature 36.7 C (98 F) 10/08/2018 7:48 AM CISCO CERTIFIED INTERNETWORK EXPERT Respiratory Rate 16 11/12/2018 7:26 AM CISCO CERTIFIED INTERNETWORK EXPERT Oxygen Saturation 99% 11/12/2018 7:26 AM CISCO CERTIFIED INTERNETWORK EXPERT Inhaled Oxygen Concentration - - Weight 102.1 kg (225 lb) 11/12/2018 7:26 AM CISCO CERTIFIED INTERNETWORK EXPERT Height 165.1 cm (5' 5) 11/12/2018 7:26 AM CISCO CERTIFIED INTERNETWORK EXPERT Body Mass Index 37.44 11/12/2018 7:26 AM CISCO CERTIFIED INTERNETWORK EXPERT Plan of Treatment [place] [address] [facility] MDCR HMO REF Care Teams Brazing Machine Feeder Relationship Specialty Start Date End Date Murphy Lynch PA [facility] [address] [place] [place] [address] PCP - General Internal Medicine 07/29/18
--- OUTSIDE RECORDS SUMMARY | 2025-08-30 00:13 | XMS_ITS | Data Portability ---
[facility] Address [address] [place] [address] Care Team Providers Care Relationship Manager Name Role Phone ОЛЕГ SR Patient Case Coordinator Assessment No assessment recorded. Plan of Treatment Reminders Order Date Submit Date Provider Last Modified By Organization Details Last Modified Time Details Appointments None recorded . Lab HbA1c (hemoglo bin A1c), blood 2021 022 [id number] In-Office Order, Internal Use Only DO Not Attach Compendium DO Not Attach Compendium, Do Not Delete/merge, [id number] 17:06:30 microalb umin, urine 2020 [email or web address] In-Office Order, Internal Use Only DO Not Attach Compendium DO Not Attach Compendium, Do Not Delete/merge, [id number] 12:27:[address] referral - Continue to treat . Thank you .. 2020 021 ZEHRA Not available 09:15:31 Procedures None recorded . Surgeries None recorded . Imaging None recorded . Medication Orders predniso ne 20 mg tablet 2021 022 [facility] #20757, [address], [place], [id number], 12:49:58 ergocalc iferol (vitamin D2) 1,250 mcg (50,000 unit) capsule 2020 [facility] #31397, [address], [place], [id number], 10:57:28 tizanidi ne 4 mg tablet 2020 [place] [facility], [address], [address], [place], [place], [id number], 10:59:44 alendron ate 70 mg tablet 2020 [place] [facility], [address], [address], [place], [place], [id number], 10:52:38 oxybutyn in chloride 5 mg tablet 2020 [place] [facility], [address], [address], [place], [place], [id number], 10:52:37 pioglita zone 15 mg tablet 2020 [place] [facility], [address], [address], [place], [place], [id number], 10:52:38 tizanidi ne 4 mg tablet 2020 [place] [facility], [address], [address], [place], [place], [id number], 10:52:37 tramadol 50 mg tablet [email or web address] [place] [address] [facility], [address], [place], [id number], 10:52:41 Stool Softener 250 mg capsule 2020 [facility] #06281, [address], [place], [id number], 12:18:16 Linzess 145 mcg capsule 2020 [facility], [address] [place] [address], [id number], 12:20:06 alendron ate 70 mg tablet 2020 [facility] #46969, [address] [facility], [place], [place], [id number], 12:11:11 calcium 600 mg (as carbonat e)-vitam in D3 10 mcg (400 unit) tablet 2020 [email or web address], [address] [facility], [place], [place], [id number], 10:27:56 Novolog U-100 Insulin aspart 100 unit/mL subcutan eous solution 2020 [facility] #64612, [address] [facility], [place], [place], [id number], 12:18:26 tramadol 50 mg tablet [email or web address] [place] [address] [facility], [address], [place], [id number], 12:05:39 naproxen 500 mg tablet 2020 021 [facility] #93292, [address] [facility], [place], [place], [id number], 03:31:49 Patient TargetsNo targets recorded. Patient InstructionsNo instructions recorded. 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 [address] [address], [place], [address], 04/26/2021 13:36:27 04/26/20 21 04/22/2021 US, head + neck, soft tissu e No observ ation record ed. [email or web address] Not Available 05/2021 17:24:46 06/05/20 21 06/04/2021 fine needl e aspir ation , ultra sound guide d, neck mass (PROC ) No observ ation record ed. [address] [address], [place], [address], 07/05/2021 17:55:38 06/07/20 21 06/04/2021 fine needl e aspir ation , ultra sound guide d, neck mass (PROC ) No observ ation record ed. [address], [place], [address], 07/05/2021 17:56:06 11/05/19 22 10/27/2021 US, doppl er, venou s No observ ation record ed. [email or web address] Not Available 10/27 22:39:06 Result Notes None recorded. Problems Name Problem SNOMED Code Status Onset Date Resolution Date Notes Provider Name and Address Organization Details Recorded Time Urinary tract infectio us disease 83415836 Active Not Available [facility] 2 12:51:46 Acute urinary tract infectio n 208559727 Active Not Available [facility] 2 12:51:45 Open wound of foot 840520214 Active Not Available [facility] 2 12:51:45 Vaginiti s and vulvovag initis Active Not Available [facility] 2 12:51:46 Eczema 20773403 Active Not Available [facility] 2 12:51:46 Acute sinusiti s 04556215 Active Not Available [facility] 2 12:51:46 Strain of tendon of upper arm 558728477 Active Not Available [facility] 2 12:51:46 Strain of muscle of upper limb 412260205 Active Not Available [facility] 2 12:51:46 Uncontro lled type 2 diabetes mellitus 613548790 Active Not Available [facility] 2 12:51:46 Pain of hip region 53771428 Active Not Available [facility] 2 12:51:46 Type 2 diabetes mellitus 56503547 Completed 08/25/2016 Murphy Lynch PA-C Attn: Accounting ,[address] [place], [address] , [facility] 8 13:18:24 Obesity 530643836 Active Not Available [facility] 2 12:51:45 Hyperlip idemia 21423145 Active Not Available [facility] 2 12:51:46 Peripher al vascular disease 711098891 Active Not Available [facility] 2 12:51:46 Shoulder strain 763797560 Active Not Available [facility] 2 12:51:45 Amputee - limb 626765448 Active 2016 above the knee: left Not Available [facility] 2 12:51:45 Tinea corporis 75101147 Active 2016 Not Available [facility] 2 12:51:46 Cataract of right eye Active 2016 Not Available [facility] 2 12:51:45 Retinopa thy Active 2016 left eye Not Available [facility] 2 12:51:45 Verruca vulgaris 18010062 Active 2016 Not Available [facility] 2 12:51:45 Goiter 5367009 Active 2016 Not Available [facility] 2 12:51:46 [facility] hyperten willy 16961831 Active 2016 Not Available [facility] 2 12:51:46 Hemorrho ids 90116754 Active 2016 Not Available [facility] 2 12:51:45 Vitamin D deficien cy 28127799 Active 2016 Not Available [facility] 2 12:51:46 Administ ration of influenz a vaccine Active 2016 Not Available [facility] 2 12:51:46 Administ ration of pneumoco ccal vaccine Active 2016 Not Available [facility] 2 12:51:45 Thyroid nodule 608702023 Active 2016 Not Available [facility] 2 12:51:46 Screenin g for malignan t neoplasm of breast Active 2017 Not Available [facility] 2 12:51:46 Retinal detachme nt 60553449 Active 2017 Not Available [facility] 2 12:51:46 Pain of right shoulder joint 90274575619 434076 Active 2017 Not Available [facility] 2 12:51:45 Type 2 diabetes mellitus 72320318 Active 2017 Not Available [facility] 2 12:51:46 Partial thicknes s rotator cuff tear 164238103 Active 2017 Not Available [facility] 2 12:51:45 Pain of shoulder region 82662646 Active 2017 Not Available [facility] 2 12:51:46 Onychomy cosis of toenails 762608696 Active 2017 Not Available [facility] 2 12:51:46 Neuropat hy 585694665 Active 2017 Not Available [facility] 2 12:51:45 Edema of lower extremit y 132136295 Active 2017 Not Available [facility] 2 12:51:45 Venous insuffic iency of lower limb 679294045 Active 2017 right : see doppler 08/17/20 Not Available [facility] 2 12:51:46 Irritabl e bowel syndrome 61676174 Active 2017 Not Available [facility] 2 12:51:45 Anemia 189168017 Active 2017 Not Available [facility] 2 12:51:45 Iron deficien cy anemia 45659499 Active 2017 Not Available [facility] 2 12:51:46 Peripher al arterial occlusiv e disease 225812200 Active [address] Goldman Not Available [facility] 2 12:51:45 Acute bronchit is 66448326 Active 2018 Not Available [facility] 2 12:51:46 Low back pain 149782827 Active 2018 Not Available [facility] 2 12:51:45 Thromboc ytopenic disorder 449932893 Active 2018 Not Available [facility] 2 12:51:46 Supraspi natus tear 902946166 Active 2018 Not Available [facility] 2 12:51:46 Acute follicul itis 028433534 Active 2019 Not Available [facility] 2 12:51:45 Osteopen ia 678869220 Active 2020 Not Available [facility] 2 12:51:46 Parotiti s 49829750 Active 2020 hospital ized at [place] , left side parotiti s Not Available [facility] 2 12:51:45 Osteopor osis 09081184 Active 2020 see bone density 1 Not Available [facility] 2 12:51:46 Chronic idiopath ic constipa tion 00407921 Active 2020 Not Available [facility] 2 12:51:46 Increase d frequenc y of urinatio n 075455580 Active 2020 Not Available [facility] 2 12:51:45 Cellulit is of lower limb 450198668 Active 2021 Not Available [facility] 2 12:51:45 Acute contact dermatit is 928089559 Active 2021 Not Available [facility] 2 12:51:46 Problem Notes None recorded. Procedures Surgical History Date Name Laterality Status Provider Name and Address Organization Details Recorded Time 10/26/19 18 Eye Surgery completed ELIZABETH Mccauley - [facility] 06/23/2018 11:58:23 10/26/19 17 Eye Surgery completed Krystyna Metzger MA PA - [facility] 06/23/2018 11:57:20 Amputation completed Juany Houser MA PA - [facility] 11/08/2014 12:12:35 Cholecystectomy completed Juany [place]ouser [place] - [facility] 11/08/2014 12:12:35 Imaging Results None recorded. Procedure Notes None recorded. Medical Equipment None Reported. Allergies Allergen ID Allergen Name Allergen Category Reaction Reaction Severity Criticality Documentation Date Start Date Code Code System Note Provider Name and Address Organization Details Recorded Time 510096 adhesive environme nt,medica tion rash severe Not available 12/08/2019 ELIZABETH Barnes, [place] - [facility] 0 12:21:51 058269 latex environme nt,medica tion other severe Not available 03/21/2021 40100 91 RxNorm ELIZABETH [place], [place] - [facility] 1 16:04:01 62445 Product containin g penicilli n (product) medicatio n rash Not available Not available 11/08/2014 33140 8001 SNOMED ELIZABETH [place], [place] - [place] [...] 97.7 [degF] 136/72 mm[Hg] Laury Russell MA [facility] 2 12:35:22 Date Recorded Body height Oxygen saturation Oxygen saturation in Arterial blood by Pulse oximetry Heart rate Body temperature Body mass index (BMI) Body weight Systolic And Diastolic Provider Name and Address Organization Details Last Updated DateTime 165.1 cm 96 % 96 % 75 /min 97.8 [degF] 39.2 kg/m2 856648. 08 g 140/68 mm[Hg] Laury Russell MA [facility] 1 11:43:33 Date Recorded Body height Provider Name an d Address Organization Details Last Updated DateTime 06/21/2021 165.1 cm Laury De La Cr mary kay [facility] 06/21/2021 10:24:28 Date Recorded Body height Provider Name an d Address Organization Details Last Updated DateTime 06/24/2021 165.1 cm Beth AriasELIZABETH [facility] 021 10:28:07 Date Recorded Body height Provider Name an d Address Organization Details Last Updated DateTime 09/13/2021 165.1 cm Laury De La Cr mary kay [facility] 09/13/2021 10:27:07 Social History Question Answer Notes LastModified by Organizat ion Details LastModified Time Tobacco Smoking Status Former Smoker ELIZABETH Mccauley, [facility] 06/23/2018 11:56:26 Do You Have An Advance [...] Do You Have A Medical Power Of Travel Professional? No Information not available 11/08/2014 What Was [...] virus, quadrivalent, preservative 0 completed Not Available [facility] 05/29/2021 10:06:16 COVID-19, mRNA, LNP-S, PF, 100 mcg/0.5mL dose or 50 mcg/0.25mL dose 1 completed Not Available [facility] 05/29/2021 10:06:16 COVID-19, mRNA, LNP-S, PF, 100 mcg/0.5mL dose or 50 mcg/0.25mL dose 1 completed Not Available [facility] 05/29/2021 10:06:16 Influenza, split virus, quadrivalent, preservative 1 completed Laura Booker LPN null, [place] - [facility] 08/09/2021 16:40:55 COVID-19, mRNA, LNP-S, PF, 100 mcg/0.5mL dose or 50 mcg/0.25mL dose 1 completed Nury Campo LPN [place], [place] [facility] 10/04/2021 10:07:05 Influenza, split virus, quadrivalent, preservative 7 completed Not Available [facility] 11/12/2019 02:34:22 Influenza, split virus, quadrivalent, PF 8 completed Not Available [facility] 11/12/2019 02:47:53 pneumococcal polysaccharide PPV23 1 completed Beth Arias MA null, [place] - [facility] 06/24/2021 10:36:09 Influenza, split virus, quadrivalent, preservative 5 completed Not Available [facility] 11/12/2019 02:45:27 Past Encounters Encounter ID Performer Location Encounter Start Date Encounter Closed Date Diagnosis/Indication Diagnosis SNOMED-CT Code Diagnosis ICD10 Code Diagnosis IMO Codes Diagnosis Note [id number] GILBERTO Garcia (Adult Med) [address] [place] [phone] 0 10/24/2014 11:52:16 10/27/2014 15:57:02 Uses contraception [id number] GILBERTO Garcia (Adult Med) [address] [place] [id number] 0 11/08/2014 11:18:53 11/08/2014 13:58:55 Type 2 diabetes mellitus 72661535 Obesity 496705471 Hyperlipidemia 59621652 Peripheral vascular disease 916523211 Shoulder strain 652690485 [id number] GILBERTO Garcia (Adult Med) [address] [place] [address] 95436-720 0 01/22/2015 09:56:32 01/22/2015 11:29:42 Shoulder strain 487118164 Obesity 273938408 Type 2 fred betes mellitus 67560717 Hyperlipidemia 49611729 Peripheral vascular disease 322776784 Uses contraception 33390316 Urinary tr act infectious disease 88535104 [id number] GILBERTO Garcia (Adult Med) [address] [place] [address] 72912[address]811 0 04/24/2015 11:11:56 04/24/2015 14:06:17 Uses contraception 46731656 [id number] MD Wilner Busby (Adult Med) [address] [place] [address] [id number] 0 05/22/2015 15:25:31 05/22/2015 16:18:31 Shoulder strain 941202222 Type 2 fred betes mellitus 53864039 Obesity 337206087 Acute urin gordon tract infection 472929095 Hyperlipidemia 11096786 Open wound of foot 054018159 Peripheral vascular disease 269306060 Urinary tr act infectious disease 75142369 Vaginitis and vulvovaginitis 549778355 [id number] GILBERTO Garcia (Adult Med) [address] [place] [address] 74970[address]849 0 07/25/2015 10:09:25 07/25/2015 14:26:11 Uses contraception 39167765 Type 2 fred betes mellitus 77634470 Bladder mu scle dysfunction - overactive 649507872 Shoulder strain 011940456 Adult heal th examination 800284349 Obesity 115294850 Eczema 25419438 Peripheral vascular disease 130723035 Hyperlipidemia 13793519 [id number] GILBERTO Garcia (Adult Med) [address] [place] [address] 56005-134 0 10/24/2015 11:45:30 10/24/2015 13:13:13 Hyperlipidemia 06007530 E78.5 Eczema 86669633 L30.9 Obesity 182662405 E66.9 Peripheral vascular disease 276512601 I73.9 Type 2 fred betes mellitus 84712401 E11.40 Acute sinusitis 06434451 J01.90 Uses contraception 93850 004 Z30.42 Amputee 60614486 Z89.9 left , btk [id number] GILBERTO Garcia (Adult Med) [address] [place] [address] 02260-960 0 01/23/2016 11:45:45 01/23/2016 12:29:31 Amputee 22288338 Z89.9 left , btk Bladder mu scle dysfunction - overactive 209415956 N32.81 Uses contraception 97398 004 Z30.42 Eczema 09634993 L30.9 Hyperlipidemia 23482350 E78.5 Obesity 311303837 E66.9 Peripheral vascular disease 616037584 I73.9 Type 2 fred betes mellitus 53348234 E11.40 Strain of tendon of upper arm 702773717 S46.911D Strain of muscle of upper limb 505214054 S46.911D [id number] GILBERTO Garcia (Adult Med) [address] [place] [address] [id number] 0 03/27/2016 12:01:54 03/27/2016 12:41:24 Hyperlipidemia 39741474 E78.5 Obesity 134814305 E66.9 Bladder mu scle dysfunction - overactive 311318314 N32.81 Uses contraception 00946 004 Z30.42 Eczema 24155308 L30.9 Uncontroll ed type 2 diabetes mellitus 834015018 E11.65 [id number] MD [facility]by (Adult Med) [address] [place] [address] [id number] 0 07/31/2016 11:22:06 07/31/2016 12:35:43 Amputee 54116249 Z89.9 left , btk Uncontroll ed type 2 diabetes mellitus 309662738 E11.65 Shoulder strain 30828937 4 S46.912D Hyperlipidemia 99079953 E78.5 Eczema 82969138 L30.9 Uses contraception 72677 004 Z30.42 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 So no need for another depo provera injections . Last one was in December 2015. Adult heal th examination 875450221 Z00.00 Pain of hip region 22646 002 M25.582 [id number] Trina Li MD [facility] (Adult Med) [address] [place] [address] 34262-755 0 12/02/2016 10:43:38 12/02/2016 11:35:57 Eczema 95307289 L30.9 Pain of hip region 50427 002 M25.551 Hyperlipidemia 51086012 E78.5 Uncontroll ed type 2 diabetes mellitus 270110255 E11.65 Amputee - limb 559466071 Z89.9 left leg atk [id number] Trina Li MD [facility] (Adult Med) [address] [place] [address] [id number] [id number] 01/20/2017 11:13:48 01/20/2017 18:04:27 Amputee - limb 606425861 Z89.9 left leg atk Peripheral vascular disease 744530264 I73.9 Obesity 682851350 E66.9 Uncontroll ed type 2 diabetes mellitus 040461952 E11.65 [id number] Trina Li MD [facility] (Adult Med) [address] [place] [address] [id number] [id number] 03/16/2017 16:01:31 03/16/2017 16:14:05 Verruca vulgaris 25994500 B07.9 bra line in back , right Hyperlipidemia 86395903 E78.5 Uncontroll ed type 2 diabetes mellitus 423752153 E11.65 Eczema 10241146 L30.9 Obesity 223148172 E66.9 Peripheral vascular disease 009541016 I73.9 Bladder mu scle dysfunction - overactive 242781346 N32.81 Amputee - limb 802127812 Z89.9 left leg atk Retinopathy 278150558 H3 5.9 Cataract of right eye 12 06807502 6281075 H26.9 [id number] Trina Li MD [facility] (Adult Med) [address] [place] [address] [id number] 0 06/01/2017 15:13:47 06/01/2017 16:32:33 Amputee - limb 865425300 Z89.9 left leg atk Pain of hip region 26473 002 M25.551 Goiter 6708562 E04.9 Hyperlipidemia 69395655 E78.5 Eczema 49282244 L30.9 Obesity 345720856 E66.9 Peripheral vascular disease 164138488 I73.9 Uncontroll ed type 2 diabetes mellitus 541076294 E11.65 [id number] Trina Li MD [facility] (Adult Med) [address] [place] [address] [id number] 0 06/26/2017 10:52:05 06/26/2017 15:36:12 Uncontrolled type 2 diabetes mellitus 501031911 E11.65 [id number] Trina Li MD [facility] (Adult Med) [address] [place] [address] [id number] 0 07/30/2017 10:58:05 07/30/2017 14:00:54 Vitamin D deficiency 13198734 E55.9 Hyperlipidemia 54286428 E78.5 Uncontroll ed type 2 diabetes mellitus 021073299 E11.65 Essential hypertension 92686471 I10 Hemorrhoids 35927042 K64 .9 Pain of hip region 32913 002 M25.551 Administra tion of influenza vaccine 61309551 Z23 Amputee - limb 460669699 Z89.9 [id number] Trina Li MD [facility] (Adult Med) [address] [place] [address] [id number] 0 10/01/2017 10:03:16 10/01/2017 11:16:14 Uncontrolled type 2 diabetes mellitus 042438224 E11.65 Urinary tr act infectious disease 59972559 N39.0 Eczema 69510085 L30.9 Administra tion of pneumococcal vaccine 04434058 Z23 Vitamin D deficiency 347 83217 E55.9 Essential hypertension 49319636 I10 Hyperlipidemia 81161731 E78.5 Obesity 134125569 E66.9 Thyroid nodule 058959654 E04.1 Amputee - limb 369561658 Z89.9 Pain of hip region 96390 002 M25.159 [id number] Trina Li MD [facility] (Adult Med) [address] [place] [address] 60404-241 0 12/31/2017 11:03:29 12/31/2017 12:05:29 Shoulder strain 565094619 S46.912D Uncontroll ed type 2 diabetes mellitus 508042271 E11.65 Essential hypertension 19130290 I10 Amputee - limb 096202701 Z89.9 Strain of muscle of upper limb 439554246 S46.911D Screening for malignant neoplasm of breast 145058091 Z12.31 [id number] Trina Li MD [facility] (Adult Med) [address] [place] [address] [id number] 0 03/15/2018 12:10:25 03/15/2018 13:29:56 Hyperlipidemia 38238456 E78.5 Type 2 fred betes mellitus 67074351 E11.40 Amputee - limb 358166473 Z89.9 left leg above the knee Peripheral vascular disease 546778115 I73.9 Strain of tendon of upper arm 340129136 S46.911D Shoulder strain 36652963 4 S46.912D Essential hypertension 72602125 I10 Vitamin D deficiency 347 03201 E55.9 Pain of ri ght shoulder joint 9282722902 1416918 M25.511 Retinal detachment 19152 000 H35.70 [id number] Trina Li MD [facility] (Adult Med) [address] [place] [address] 53455-270 0 06/23/2018 11:26:34 06/23/2018 12:39:28 Edema of lower extremity 443304230 R60.0 Peripheral vascular disease 495478200 I73.9 Uncontroll ed type 2 diabetes mellitus 724187046 E11.65 Hyperlipidemia 32543437 E78.5 Pain of sh oulder region 09120481 M25.169 [id number] MD [facility] (Adult Med) [address] [place] [address] 74848-307 0 08/23/2018 10:45:51 08/23/2018 12:05:52 Essential hypertension 52362084 I10 Peripheral vascular disease 287800690 I73.9 Vitamin D deficiency 347 72123 E55.9 Administra tion of influenza vaccine 55583952 Z23 Hyperlipidemia 37704671 E78.5 Uncontroll ed type 2 diabetes mellitus 491709702 E11.65 Obesity 495618943 E66.9 Irritable bowel syndrome 44281113 K58.9 Pain of hip region 55660 002 M25.551 Venous ins ufficiency of lower limb 910710920 I87.2 Type 2 fred betes mellitus 23079917 E11.40 [id number] MD Wilner Busby (Adult Med) [address] [place] [address] 48367-942 0 12/20/2018 12:05:26 12/21/2018 09:22:40 Essential hypertension 27232656 I10 Anemia 353482514 D64.9 Type 2 fred betes mellitus 50309376 E11.40 Vitamin D deficiency 347 35454 E55.9 Iron defic iency anemia 67068974 D50.9 Irritable bowel syndrome 60985986 K58.9 Partial th ickness rotator cuff tear 579228536 M75.101 Obesity 616158206 E66.9 Uncontroll ed type 2 diabetes mellitus 523445046 E11.65 Hyperlipidemia 30755607 E78.5 Peripheral arterial occlusive disease 858302551 I73.9 [id number] MD [facility] (Adult Med) [address] [place] [address] 77169-593 0 03/22/2019 11:38:18 03/22/2019 12:23:51 Essential hypertension 13914751 I10 Vitamin D deficiency 347 49164 E55.9 Peripheral arterial occlusive disease 716181756 I73.9 Venous ins ufficiency of lower limb 975008027 I87.2 Neuropathy 522918458 G62 .9 Pain of ri ght shoulder joint 6494431181 9330522 M25.511 Partial th ickness rotator cuff tear 964140304 M75.101 Bladder mu scle dysfunction - overactive 119541068 N32.81 Peripheral vascular disease 763559774 I73.9 Obesity 188104063 E66.9 Hyperlipidemia 48039144 E78.5 Type 2 ferd betes mellitus 98355614 E11.40 E11.3213 Irritable bowel syndrome 95018472 K58.9 [id number] GILBERTO Garcia (Adult Med) [address] [place] [address] 38271-560 0 06/16/2019 11:19:17 06/16/2019 12:50:21 Pain of hip region 67147863 M25.551 Neuropathy 453355721 G62 .9 Partial th ickness rotator cuff tear 505368232 M75.101 Type 2 fred betes mellitus 24247712 E11.40 E11.3213 Hyperlipidemia 34860843 E78.5 Obesity 741695402 E66.9 Peripheral vascular disease 300761955 I73.9 Amputee - limb 686114826 Z89.9 left leg above the knee Essential hypertension 28522741 I10 Vitamin D deficiency 347 69802 E55.9 Pain of ri ght shoulder joint 7665056773 7872301 M25.511 Venous ins ufficiency of lower limb 169522836 I87.2 Irritable bowel syndrome 63815547 K58.9 [id number] MD Wilner Busby (Adult Med) [address] [place] [address] 79001-744 0 07/22/2019 15:48:53 07/25/2019 09:09:18 Thrombocytopenic disorder 172183691 D69.6 Urinary tr act infectious disease 40986873 N39.0 Low back pain 429884736 M54.5 Essential hypertension 81342875 I10 Peripheral arterial occlusive disease 508393673 I73.9 Irritable bowel syndrome 88697209 K58.9 Venous ins ufficiency of lower limb 592835582 I87.2 Neuropathy 671270391 G62 .9 Partial th ickness rotator cuff tear 052260267 M75.101 Vitamin D deficiency 347 22622 E55.9 Bladder mu scle dysfunction - overactive 274838330 N32.81 Hyperlipidemia 06464476 E78.5 Type 2 fred betes mellitus 06895292 E11.40 E11.3213 [id number] MD Wilner Busby (Adult Med) [address] [place] [address] 54715-859 0 12/08/2019 11:58:06 12/09/2019 08:20:17 Type 2 diabetes mellitus 57189906 E11.40 E11.3213 Urinary tr act infectious disease 22338976 N39.0 Thyroid nodule 717619490 E04.1 Pain of hip region 11976 002 M25.551 Strain of muscle of upper limb 035586762 S46.911D Uncontroll ed type 2 diabetes mellitus 996330624 E11.65 Acute folliculitis 86474 7007 L73.9 Essential hypertension 55973482 I10 Hyperlipidemia 12560823 E78.5 Irritable bowel syndrome 52164843 K58.9 Neuropathy 075840439 G62 .9 Obesity 145363497 E66.9 Peripheral arterial occlusive disease 082400655 I73.9 Peripheral vascular disease 127036079 I73.9 Retinal detachment 70364 000 H35.70 Supraspinatus tear 32608 6004 M75.110 Venous ins ufficiency of lower limb 605993999 I87.2 Vitamin D deficiency 347 15281 E55.9 [id number] Trina Li MD [facility] (Adult Med) [address] [place] [address] 15194-527 0 03/16/2020 08:22:42 03/20/2020 18:00:33 Partial thickness rotator cuff tear 455421459 M75.101 Amputee - limb 647422075 Z89.9 left leg above the knee Edema of l ower extremity 081678974 R60.0 Essential hypertension 75527645 I10 Hyperlipidemia 18727112 E78.5 Iron defic iency anemia 90138793 D50.9 Low back pain 166081397 M54.5 Neuropathy 234542188 G62 .9 Peripheral arterial occlusive disease 635597919 I73.9 Type 2 fred betes mellitus 83058824 E11.40 E11.3213 Z86.31 Venous ins ufficiency of lower limb 007422144 I87.2 Vitamin D deficiency 347 00370 E55.9 [id number] Trina Li MD [facility] (Adult Med) [address] [place] [address] 55300-065 0 05/16/2020 10:06:27 05/16/2020 13:21:15 Thrombocytopenic disorder 537545090 D69.6 Pain of hip region 24045 002 M25.551 Type 2 fred betes mellitus 37974826 E11.40 E11.3213 Z86.31 Hyperlipidemia 48497604 E78.5 Amputee - limb 156413225 Z89.9 left leg above the knee Anemia 365195307 D64.9 Essential hypertension 77917842 I10 Hemorrhoids 76130942 K64 .9 Iron defic iency anemia 73534193 D50.9 Irritable bowel syndrome 57678928 K58.9 Low back pain 456744198 M54.5 Neuropathy 847753185 G62 .9 Obesity 287842444 E66.9 Peripheral vascular disease 140980257 I73.9 Vitamin D deficiency 347 10654 E55.9 [id number] Trina Li MD [facility] (Adult Med) [address] [place] [address] 05218-850 0 12/14/2020 08:05:23 12/14/2020 12:24:01 Acute sinusitis 29970282 J01.90 Osteopenia 902367822 M85 .80 Goiter 1540583 E04.9 Neuropathy 864652104 G62 .9 Anemia 887819369 D64.9 Essential hypertension 27662325 I10 Hemorrhoids 66069377 K64 .9 Hyperlipidemia 63240472 E78.5 Low back pain 324656528 M54.5 Peripheral arterial occlusive disease 596259633 I73.9 Peripheral vascular disease 210610007 I73.9 Retinal detachment 69601 000 H35.70 Thrombocyt openic disorder 791936379 D69.6 Type 2 fred betes mellitus 60130235 E11.40 E11.3213 Z86.31 Venous ins ufficiency of lower limb 077440101 I87.2 Vitamin D deficiency 347 40537 E55.9 [id number] Trina Li MD [facility] (Adult Med) [address] [place] [address] 38276-891 0 01/01/2021 08:54:55 01/01/2021 16:12:08 Essential hypertension 74047514 I10 Hyperlipidemia 03712713 E78.5 Iron defic iency anemia 92983268 D50.9 Low back pain 377566247 M54.5 Neuropathy 336604545 G62 .9 Type 2 fred betes mellitus 64918074 E11.40 E11.3213 Z86.31 [id number] Trina Li MD [facility] (Adult Med) [address] [place] [address] 64040-211 0 02/05/2021 08:40:40 02/07/2021 10:54:48 Amputee - limb 446659240 Z89.9 left leg above the knee Anemia 100104568 D64.9 Essential hypertension 20013959 I10 Hyperlipidemia 11162939 E78.5 Iron defic iency anemia 25687008 D50.9 Low back pain 975866919 M54.5 Neuropathy 692553509 G62 .9 Peripheral arterial occlusive disease 925276867 I73.9 Peripheral vascular disease 455046827 I73.9 Retinal detachment 02881 000 H35.70 Type 2 fred betes mellitus 65583431 E11.40 E11.3213 Z86.31 Vitamin D deficiency 347 82088 E55.9 Venous ins ufficiency of lower limb 842594302 I87.2 Osteopenia 745312991 M85 .80 Pain of sh oulder region 86624007 M25.519 Shoulder strain 19958828 4 S46.912D Thrombocyt openic disorder 566912840 D69.6 [id number] MD Wilner Busby (Adult Med) [address] [place] [address] 65497-858 0 03/21/2021 11:09:29 03/21/2021 12:33:11 Type 2 diabetes mellitus 88234571 E11.40 E11.3213 Z86.31 Osteoporosis 77059435 M8 1.0 Essential hypertension 19100516 I10 Hyperlipidemia 73509157 E78.5 Low back pain 502085234 M54.5 Chronic id iopathic constipation 13725859 K59.04 Vitamin D deficiency 347 97922 E55.9 Venous ins ufficiency of lower limb 199635885 I87.2 Peripheral vascular disease 123257270 I73.9 Anemia 056040775 D64.9 [id number] GILBERTO Garcia (Adult Med) [address] [place] [address] 75272-868 0 06/21/2021 08:44:23 06/21/2021 17:19:04 Uncontrolled type 2 diabetes mellitus 735850680 E11.65 Osteoporosis 44750440 M8 1.0 Essential hypertension 40975949 I10 Low back pain 846181598 M54.5 Neuropathy 717509218 G62 .9 Increased frequency of urination 469158261 R35.0 Vitamin D deficiency 347 95279 E55.9 Type 2 fred betes mellitus 79712347 E11.40 E11.3213 Z86.31 Peripheral vascular disease 216133685 I73.9 Hyperlipidemia 18510361 E78.5 Amputee - limb 517102416 Z89.9 left leg above the knee [id number] GILBERTO Garcia (Adult Med) [address] [place] [address] 88336-938 0 06/24/2021 10:15:12 06/24/2021 21:19:10 Administration of pneumococcal vaccine 90929745 Z23 [id number] MD Wilner Busby (Adult Med) [address] [place] [address] [phone] 0 09/13/2021 10:24:57 09/13/2021 11:13:27 Vitamin D deficiency 07083727 E55.9 Low back pain 336535051 M54.50 Amputee - limb 897365530 Z89.9 left leg above the knee Anemia 580943513 D64.9 Chronic id iopathic constipation 36746771 K59.04 Eczema 48107789 L30.9 Essential hypertension 00539115 I10 Hemorrhoids 22624762 K64 .9 Hyperlipidemia 55718379 E78.5 Iron defic iency anemia 88383448 D50.9 Irritable bowel syndrome 51214725 K58.9 Neuropathy 574726598 G62 .9 Obesity 256527076 E66.9 Osteoporosis 80771247 M8 1.0 Peripheral arterial occlusive disease 803973322 I73.9 Peripheral vascular disease 856593226 I73.9 Retinal detachment 18694 000 H35.70 Type 2 fred betes mellitus 94428195 E11.40 E11.3213 Z86.31 Venous ins ufficiency of lower limb 765764856 I87.2 [id number] MD Wilner Busby (Adult Med) [address] [place] [address] 06384-013 0 12/04/2021 12:12:11 12/04/2021 12:56:22 Essential hypertension 26910810 I10 Low back pain 425605490 M54.50 Neuropathy 290599393 G62 .9 Osteoporosis 47434004 M8 1.0 Peripheral vascular disease 272265669 I73.9 Type 2 fred betes mellitus 03042069 E11.40 E11.3213 Z86.31 Vitamin D deficiency 347 71874 E55.9 Cellulitis of lower limb 766379666 L03.119 Acute cont act dermatitis 568830547 L25.9 Anemia 263040087 D64.9 Hyperlipidemia 03354057 E78.5 Iron defic iency anemia 42397722 D50.9 Irritable bowel syndrome 00539429 K58.9 Peripheral arterial occlusive disease 568711287 I73.9 Health Concerns Section Related Observation LastModified by Organization Detai ls LastModified Time None Recorded Concern Status LastModified by Organization Details LastModified Time None Recorded Advance Directives Directive N: Payers Insurance Date Sequence Insurance Name Policy Number Policy Suh Covered Member ID Suh Member ID Guarantor Name 02/04/2022 1 [facility] (MEDICARE REPLACEMENT/A DVANTAGE - HMO) [id number] Delmy Hull [id number] Delmy Hull Notes Date Note Type Note Provider Name and Address Organization Details Recorded Time 03/21/2021 text/html ROS as noted in the HPI no changes Murphy Lynch PA-C Attn: [employer] [place], [place], [address] [place] [address], [place] - [place] 03/27/2021 12:07:34 06/21/2021 text/html ROS as noted in the HPI no changes Murphy Lynch PA-C Attn: [employer] [place], [address], [place] 06/23/2021 20:05:03 09/13/2021 text/html ROS as noted in the HPI no changes Murphy Lynch PA-C Attn: [employer] [place], [address], [place] 09/14/2021 21:06:45 12/04/2021 text/html ROS as noted in the HPI no changes Murphy Lynch PA-C Attn: [employer] [place], [address], [place] 12/09/2021 20:38:10 OBGyn Episode No OBEpisode recorded.
--- OUTSIDE RECORDS SUMMARY | 2025-08-30 00:13 | XMS_ITS | Clinical Summary ---
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 Gender Identity Not on file Sexual Orientation Not on file Last Filed Vital Signs Vital Sign Reading Time Taken Comments Blood Pressure 128/77 09/10/2023 2:19 PM MANAGER METROLOGY Pulse 81 09/10/2023 2:19 PM MANAGER METROLOGY Temperature 36.6 C (97.8 F) 09/10/2023 2:19 PM MANAGER METROLOGY Respiratory Rate 18 09/10/2023 2:19 PM MANAGER METROLOGY Oxygen Saturation 99% 09/10/2023 2:19 PM MANAGER METROLOGY Inhaled Oxygen Concentration - - Weight 106.1 kg (234 lb) 09/10/2023 2:21 PM MANAGER METROLOGY Height 160 cm (5' 3) 02/20/2023 9:52 [...] Flex Sig/CT Colonography Q 5 years 2004 RSV VACCINE (60+ or ) (1 - Risk 50-74 years 1-dose series) 2009 ZOSTER VACCINE (1 of 2) 2009 DIABETES HBA1C Q 6 MONTHS 07/27/2021 01/25/2021 PNEUMOCOCCAL VACCINE 50+ YEA RS (2 of 2 - PCV) 06/24/2022 06/24/2021 OSTEOPOROSIS SCREENING 2024 INFLUENZA VACCINE (#1) 2025 , 07/19/2020, 08/23/2018, Additional history exists COVID-19 Vaccine (2024-2 6 season) 2025 09/26/2021, 02/12/2021, 01/15/2021 COLORECTAL SCREENING 10/08/2028 10/08/2018 Colorectal Cancer Screening 10/08/2028 Insurance O MCR Care Teams Advertiser Relationship Specialty Start Date End Date Rukhsana Oswald MD PCP - General Family Practice 01/05/23
--- OUTSIDE RECORDS SUMMARY | 2025-08-30 00:13 | XMS_ITS | Encounter Summary ---
Author Organization Submittable Address [address] [place] [address] Care Team Providers Care Showroom Sales Assistant Name Role Phone Rukhsana Oswald MD Primary Care Provider [phone] Encounter Details Date Type Department Care Team (Late st Contact Info) Description 03/31/2008 Outpatient Historical [facility] Conversion Department [address] [place] [address] [place] [address] [facility] [address] [place] [address] Social History Tobacco Use Types Packs/Day Years Used Date Smoking Tobacco: Never Assessed Comments Unknown Sex and Gender Information Value Date Recorded Sex Assigned at Not on file Legal 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 Gender Identity Not on file Sexual Orientation [...] GLUCOSE POC 253(H) 65 - 99 mg/dL [facility] Venous blood specimen (specimen) 04/11/2008 12:11 PM CDT 04/11/2008 12:11 PM CDT Gabriel Rutledge MD POINT OF CARE TESTING Final Re sult Performing Organization Address [facility]/ZIP Co de Phone Number [facility] CLIA# [id number] [address] [place] [address] * (ABNORMAL) POC GLUCOSE (04/11/2008 11:41 AM CDT) COMMENT, GLU POC Notified [facility] GLUCOSE POC 281(H) 65 - 99 mg/dL [facility] Venous blood specimen (specimen) 04/11/2008 11:41 AM CDT 04/11/2008 11:41 AM CDT Gabriel Rutledge MD POINT OF CARE TESTING Final Re sult [facility] CLIA# [id number] [address] [place] [address] * (ABNORMAL) POC GLUCOSE (04/11/2008 11:06 AM CDT) GLUCOSE POC 309(H) 65 - 99 mg/dL [facility] COMMENT, GLU POC Notified [facility] Venous blood specimen (specimen) 04/11/2008 11:06 AM CDT 04/11/2008 11:06 AM CDT Gabriel Rutledge MD POINT OF CARE TESTING Final Re sult Performing Organization Address [facility] Co de Phone Number [facility] CLIA# [id number] [address] [place] [address] * (ABNORMAL) POC GLUCOSE (04/11/2008 10:17 AM CDT) GLUCOSE POC 317(H) 65 - 99 mg/dL [facility] Venous blood specimen (specimen) 04/11/2008 10:17 AM CDT 04/11/2008 10:17 AM CDT Gabriel Rutledge MD POINT OF CARE TESTING Final Re sult Performing Organization Address [facility] Co de Phone Number [facility] CLIA# [id number] [address] [place] [address] * (ABNORMAL) POC GLUCOSE (04/11/2008 8:03 AM CDT) GLUCOSE POC 276(H) 65 - 99 mg/dL [facility] Venous blood specimen (specimen) 04/11/2008 8:03 AM CDT 04/11/2008 8:03 AM CDT Gabriel Rutledge MD POINT OF CARE TESTING Final Re sult Performing Organization Address [facility] Co de Phone Number [facility] CLIA# [id number] [address] [place] [address] * POC RT, BLOOD GASES (04/11/2008 7:10 AM CDT) POTASSIUM POC 4.3 3.5 - 4.9 mmol/L [facility] PATIENT'S TEMPERATURE 37.0 Degree C [facility] CALICUM IONIZED, WHOLE BLOOD 4.85 4.76 - 5.16 mg/dL [facility] SODIUM POC 137 135 - 145 mmol/L [facility] COMMENT, GASES POC NOTIFIED [facility] Blood specimen (specimen) 04/11/2008 7:10 AM CDT 04/11/2008 7:10 AM CDT Gabriel Rutledge MD CHEMISTRY ORDERABLES Final Res ult Performing Organization Address [facility]/ZIP Co de Phone Number [facility] CLIA# [id number] [address] [place] [address] * POC , URINE (04/11/2008 5:55 AM CDT) , URINE POC Negative Negative [facility] Urine specimen (specimen) 04/11/2008 5:55 AM CDT 04/11/2008 5:55 AM CDT Gabriel Rutledge MD POINT OF CARE TESTING Final Re sult Performing Organization Address [facility] Co de Phone Number [facility] CLIA# [id number] [address] [place] [address] * (ABNORMAL) POC GLUCOSE (04/11/2008 5:53 AM CDT) GLUCOSE POC 248(H) 65 - 99 mg/dL [facility] Venous blood specimen (specimen) 04/11/2008 5:53 AM CDT 04/11/2008 5:53 AM CDT Gabriel Rutledge MD POINT OF CARE TESTING Final Re sult Performing Organization Address City/[facility]/ZIP Co de Phone Number [facility] CLIA# [id number] [address] [place] [address] documented in this encounter Visit Diagnoses Not on filedocumented in this encounter Care Teams Showroom Sales Assistant Relationship Specialty Start Date End Date Rukhsana Oswald MD PCP - General Family Practice 01/05/23 documented as of this encounter
--- OUTSIDE RECORDS SUMMARY | 2025-08-30 00:13 | XMS_ITS | Clinical Summary ---
Author Organization [facility] Address [address] [place] [address] Care Team Providers Care Program Development Manager Name Role Phone Trina Li MD Primary Care Provider [phone] Social History Tobacco Use Types Packs/Day Years [...] 2009 Zoster Vaccines (1 of 2) 2009 Dexa Scan (General) 2024 COVID-19 Vaccine (1 - 2024-2 6 season) 2025 Influenza Adult (#1) 2025 RSV Immunization or 60+ Years (1 - 1-dose 75+ series) 2034 Hepatitis A Vaccines Aged Out No long er eligible based on patient's age to complete this topic Meningococcal B Vaccine Aged Out No l onger eligible based on patient's age to complete this topic Meningococcal Vaccine Aged Out No babak portillo eligible based on patient's age to complete this topic RSV Immunizations Under 20 Months Aged Out No longer eligible based on patient's age to complete this topic Care Teams Program Development Manager Relationship Specialty Start Date End Date Trina Li MD [address] [place] [address] PCP - General 11/30/16
[2025-08-30 08:58] VITALS: BP 113/86; PULSE 75; RESP 22; TEMP 36.5; O2SAT 95; BMI 46.4
[2025-08-30] MEDS: LACTATED RINGERS 1,000 ML 150 ML IV CONT (09:02)
--- NOTE | 2025-08-30 10:02 | PM.IMHP ---
H&P: HPI History of Present Illness Date/Time: 08/30/25 10:02 Chief Complaint: Liver cirrhosis Narrative: Patient referred for EGD after finding she has cirrhosis based on FibroScan (17.7 kPa) and clinical data, including thrombocytopenia. She denies dysphagia or heartburn. Review of Systems Review of Systems: All systems reviewed & are unremarkable except as noted in HPI and below PMFSH Past Medical History Medical History Laceration of lip Urge urinary incontinence Cellulitis Right leg swelling History of cerebrovascular accident Thrombocytopenia Chronic anemia Cyst of left parotid gland Parotitis History of DVT of lower extremity Hyperlipidemia Gastroesophageal reflux disease Irritable bowel syndrome Facial abscess Osteomyelitis Opioid use Depression Urinary tract infection Hypertension Peripheral vascular disease Peripheral neuropathy Seasonal allergies Surgical History Surgical History Status post laser cataract surgery of left eye History of left above knee amputation (~06/2013) 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 History of vascular surgery Left lower extremity stent. History of vein stripping History of cholecystectomy Family History Family History Mother Cerebrovascular accident Diabetes mellitus Hypertension Father Diabetes mellitus Heart disease Hypertension Social History Social History Social History: Surrogate decision maker: Rina Parrish, daughter. Code status: Full code. She uses a scooter at home and has a transport wheelchair for tight spaces. She has difficulty ambulating with prosthetic and prefers not to use it. Smoking packs per day: 0.5 Smoking cigarettes per day: 10.0 Years smoked: 30 Smoking pack-years: 15.00 Smoking status: Former smoker Tobacco type: cigarettes Second hand tobacco smoke exposure: Yes Smoking end date: 10/26/06 Alcohol intake: never Substance use: never Substance use type: does not use Lack of Transportation: No Lack of Food: Never True Current Housing: I Have Housing Concerned About Future Housing: No Difficulty Paying Gas/Electric Bills: YES Difficulty Paying for Meds: No Currently Unemployed: No Education: High School Diploma/GED Difficulty w/ Childcare or Family Care: No Additional living arrangements comments: The patient lives in [place] with her . Additional occupation/education comments: Disabled. Gender identity (if verbalized by the patient): Female Spiritual care concerns: No Meds Home Medications and Allergies Home Medications ?Medication ?Instructions ?Recorded ?Confirmed ?Type calcium carbonate (Calcium 600) 600 mg PO BID 12/17/22 08/30/25 History Electric Wheelchair #1 ea 06/04/23 05/29/25 Rx power Mobility Scooter #1 ea 06/11/23 05/29/25 Rx docusate sodium 100 mg capsule 100 mg PO BID 08/20/23 08/30/25 History (Colace) ferrous sulfate 325 mg (65 mg 325 mg PO .qod 08/20/23 08/30/25 History iron) tablet tizanidine 4 mg tablet 4 mg PO HS PRN Pain (Scale Score 10/03/24 08/30/25 Rx 4-6) #90 tabs oxybutynin chloride 5 mg tablet 5 mg PO TID #270 tabs 01/02/25 08/30/25 Rx alendronate 70 mg tablet 70 mg PO WEEKLY #12 tabs 04/05/25 08/22/25 Rx clopidogrel 75 mg tablet 75 mg PO DAILY #100 tabs 04/05/25 08/30/25 Rx fluticasone propionate 50 2 spray intranasal BID #16 mL 04/05/25 08/22/25 Rx mcg/actuation nasal spray,suspension (Flonase Allergy Relief) losartan 50 mg tablet 50 mg PO DAILY #100 tabs 04/05/25 08/30/25 Rx pravastatin 20 mg tablet 20 mg PO DAILY #100 tabs 04/05/25 08/30/25 Rx metformin 500 mg tablet,extended 500 mg PO BID #180 tabs 04/11/25 08/30/25 Rx release 24 hr (Glucophage XR) blood sugar diagnostic (OneTouch #100 ea 04/12/25 05/29/25 Rx Verio test strips) carvedilol 12.5 mg tablet 12.5 mg PO BID #200 tabs 04/18/25 08/30/25 Rx Calcium 600 + D(3) 2 tablet PO DAILY 08/22/25 08/30/25 History acetaminophen 500 mg tablet 500 mg PO DAILY PRN fever 08/22/25 08/22/25 History gabapentin 600 mg tablet 600 mg PO Q8H PRN pain 08/22/25 08/30/25 History gentamicin 0.1 % topical cream 1 applic topical TID PRN rash 08/22/25 08/30/25 History mupirocin 2 % topical ointment 1 applic topical BID PRN nasal 08/22/25 08/22/25 History (Adaany) dryness Allergies Allergy/AdvReac Type Severity Reaction Status Date / Time latex Allergy Rash Verified 08/30/25 08:55 Penicillins AdvReac Mild Rash Verified 08/30/25 08:55 Vital Signs Vital Signs - 24 hr 08/30/25 08:58 Temperature 97.7 F Pulse Rate 75 Respiratory Rate 22 H Blood Pressure 113/86 Pulse Oximetry 95 Oxygen Delivery Room Air Exam Const: General: cooperative and healthy appearing Resp: Effort & Inspection: normal respiratory effort and able to speak in complete sentences Auscultation: clear to auscultation bilaterally Cardio: Rate: regular rate Rhythm: regular rhythm GI: Inspection: normal to inspection GI Palp: No No hepatosplenomegaly present Auscultation: normal bowel sounds Rectal Exam: deferred Skin: General skin exam: normal color Psych: Appearance: grossly normal Mental Status: mental status grossly normal Assessment and Plan Assessment and plan (1) Cirrhosis: Code(s): K74.60 - Unspecified cirrhosis of liver Status: Acute Assessment and Plan: The patient is deemed a good candidate for the procedure. Consent signed. Will proceed.
--- NOTE | 2025-08-30 10:21 | S_PTH ---
PATIENT: Delmy Hull LOC: [facility]#:[id number] AGE/SX: 65/F ROOM: RE08/30/[address]: Liam Ruiz MD : 1960 BED: DIS: 08/30/2025 SPEC #: [id number] RECD: 08/30/25 13:08 STATUS: PRAVEENA RE #: [id number] MOMO: 08/30/25 10:[address]: Liam Ruiz DEPT: [facility] Surgical RECD BY: Lea Zambrano ENTERED: 08/30/25 13:08 SP TYPE: Surgical OTHR DR: Rukhsana Oswald MD Tissues: A - Gastric Biopsy B - Gastric Biopsy Procedures: Hematoxylin and Eosin Stain Gross and Microscopic Level 4
[2025-08-30 10:22] VITALS: BP 89/40; PULSE 71; RESP 18; O2SAT 99
[2025-08-30 10:32] VITALS: BP 92/42; PULSE 77; RESP 18; O2SAT 97
[2025-08-30 10:42] VITALS: BP 119/55; PULSE 76; RESP 18; O2SAT 98
--- NOTE | 2025-09-01 09:47 | WPDANESEPPF ---
Anes - Initial Pre Proc Eval Procedure: Operation Date: 08/30/25 10:00 Proposed Procedures p Esophagogastroduodenoscopy EGD - Liam Ruiz MD Date/Time: 09/01/25 09:47 Surgeon: Liam Ruiz MD Pre Op Diagnosis: Unspecified cirrhosis of liver Patient Data Age: 65 Gender: F Height: 1.6 m Weight: 119 kg Last Vital Signs Temp 36.5 C 08/30/25 08:58 Pulse 76 08/30/25 10:42 Resp 18 08/30/25 10:42 BP 119/55 L 08/30/25 10:42 Pulse Ox 98 08/30/25 10:42 O2 Del Method Room Air 08/30/25 10:42 O2 Flow Rate 4 08/30/25 10:22 Allergies Allergy/AdvReac Type Severity Reaction Status Date / Time latex Allergy Rash Verified 08/30/25 08:55 Penicillins AdvReac Mild Rash Verified 08/30/25 08:55 Home Medications ?Medication ?Instructions ?Recorded ?Confirmed ?Type calcium carbonate (Calcium 600) 600 mg PO BID 12/17/22 08/30/25 History Electric Wheelchair #1 ea 06/04/23 05/29/25 Rx power Mobility Scooter #1 ea 06/11/23 05/29/25 Rx docusate sodium 100 mg capsule 100 mg PO BID 08/20/23 08/30/25 History (Colace) ferrous sulfate 325 mg (65 mg 325 mg PO .qod 08/20/23 08/30/25 History iron) tablet tizanidine 4 mg tablet 4 mg PO HS PRN Pain (Scale Score 10/03/24 08/30/25 Rx 4-6) #90 tabs oxybutynin chloride 5 mg tablet 5 mg PO TID #270 tabs 01/02/25 08/30/25 Rx alendronate 70 mg tablet 70 mg PO WEEKLY #12 tabs 04/05/25 08/22/25 Rx clopidogrel 75 mg tablet 75 mg PO DAILY #100 tabs 04/05/25 08/30/25 Rx fluticasone propionate 50 2 spray intranasal BID #16 mL 04/05/25 08/22/25 Rx mcg/actuation nasal spray,suspension (Flonase Allergy Relief) losartan 50 mg tablet 50 mg PO DAILY #100 tabs 04/05/25 08/30/25 Rx pravastatin 20 mg tablet 20 mg PO DAILY #100 tabs 04/05/25 08/30/25 Rx metformin 500 mg tablet,extended 500 mg PO BID #180 tabs 04/11/25 08/30/25 Rx release 24 hr (Glucophage XR) blood sugar diagnostic (OneTouch #100 ea 04/12/25 05/29/25 Rx Verio test strips) carvedilol 12.5 mg tablet 12.5 mg PO BID #200 tabs 04/18/25 08/30/25 Rx Calcium 600 + D(3) 2 tablet PO DAILY 08/22/25 08/30/25 History acetaminophen 500 mg tablet 500 mg PO DAILY PRN fever 08/22/25 08/22/25 History gabapentin 600 mg tablet 600 mg PO Q8H PRN pain 08/22/25 08/30/25 History gentamicin 0.1 % topical cream 1 applic topical TID PRN rash 08/22/25 08/30/25 History mupirocin 2 % topical ointment 1 applic topical BID PRN nasal 08/22/25 08/22/25 History (Centany) dryness Patient hx anesthesia problems: none Family hx anesthesia problems: none Results Review: All pre-operative results and documents have been reviewed as part of the pre-operative evaluation. [facility] Past Medical History Medical History Laceration of lip Urge urinary incontinence Cellulitis Right leg swelling History of cerebrovascular accident Thrombocytopenia Chronic anemia Cyst of left parotid gland Parotitis History of DVT of lower extremity Hyperlipidemia Gastroesophageal reflux disease Irritable bowel syndrome Facial abscess Osteomyelitis Opioid use Depression Urinary tract infection Hypertension Peripheral vascular disease Peripheral neuropathy Seasonal allergies Surgical History Surgical History Status post laser cataract surgery of left eye History of left above knee amputation (~06/2013) 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 History of vascular surgery Left lower extremity stent. History of vein stripping History of cholecystectomy Family History Family History Mother Cerebrovascular accident Diabetes mellitus Hypertension Father Diabetes mellitus Heart disease Hypertension Social History Social History Social History: Surrogate decision maker: Rina Parrish, daughter. Code status: Full code. She uses a scooter at home and has a transport wheelchair for tight spaces. She has difficulty ambulating with prosthetic and prefers not to use it. Smoking packs per day: 0.5 Smoking cigarettes per day: 10.0 Years smoked: 30 Smoking pack-years: 15.00 Smoking status: Former smoker Tobacco type: cigarettes Second hand tobacco smoke exposure: Yes Smoking end date: 10/26/06 Alcohol intake: never Substance use: never Substance use type: does not use Lack of Transportation: No Lack of Food: Never True Current Housing: I Have Housing Concerned About Future Housing: No Difficulty Paying Gas/Electric Bills: YES Difficulty Paying for Meds: No Currently Unemployed: No Education: High School Diploma/GED Difficulty w/ Childcare or Family Care: No Additional living arrangements comments: The patient lives in [place] with her . Additional occupation/education comments: Disabled. Gender identity (if verbalized by the patient): Female Spiritual care concerns: No Anes - Eval Final PreProcedure Day of Procedure 09/01/25 09:47 Patient weight: morbidly obese Heart: regular rate and rhythm Lungs: clear to auscultation Airway: Mallampati scale class II Neurological: alert and oriented Last oral intake: >/= 8 hours ASA classification: IV Emergent: no Anesthetic plan: proceed Anesthesia type and monitoring: general GIVS and standard monitoring Results Review: All pre-operative results and documents have been reviewed as part of the pre-operative evaluation. Informed Consent: The patient's anesthetic plan and its attendant risks and benefits were discussed with the patient/family/POA. Questions were solicited and answers provided to the satisfaction of the patient/family/POA.
== END 2025-08-30 11:33 | disposition home or self-care (01) ==
PROVIDERS: PCP Family Medicine; Referring Provider Nurse Practitioner; Visit Provider Internal Medicine Gastroenterology
PROC: 0DJ08ZZ Inspection of Upper Intestinal Tract, Via Natural or Artificial Opening Endoscopic (ICD-10-PCS; CPT 43239; principal; 2025-08-30 10:00)
DX: K74.60 Unspecified cirrhosis of liver (principal); I85.10 Secondary esophageal varices without bleeding; K29.30 Chronic superficial gastritis without bleeding; Z79.84 Long term (current) use of oral hypoglycemic drugs; Z87.891 Personal history of nicotine dependence
CPT/HCPCS: 43239; 82948; 88305; J7120